=== PATIENT | female | born 1940 | race Caucasian/White ===

== ENCOUNTER 2024-04-23 07:22 | Day surgery (SDC) | payer OTHER, SELFPAY ==
[2024-04-23] VITALS (15 sets, daily range): BP systolic 85–174; BP diastolic 66–89; BMI 25.2
[2024-04-23] MEDS: LOW STRENGTH ASPIRIN 324 MG PO (08:13)
--- NOTE | 2024-04-23 09:38 | CONSULT.STRU ---
Consultation
-
Date/Time Consultation Requested: 04/23/2024
Date/Time Consultation Performed: 04/23/2024
Requesting Provider: Nahomy Cerda MD
Performing Provider: KHOI Barrios
Reason for Consultation: /TAVR
Patient History
Physicians
Family Physician: Mayte Rivas DO
Outpatient Travel Registered Nurse Icu: Hung Be MD
Primary Travel Registered Nurse Icu: Hung Be MD
History of Present Illness
Ms. Chen is a very pleasant 84 yof that presents with severe symptomatic aortic stenosis associated with several episodes of syncope and near syncope. She states she had the first episode of the summer while mowing her lawn, she could feel the
syncope coming on. She also relates this has happened several more times while mowing her lawn and raking leaves. Patient also states she has had increasing fatigue over the last several months. Her echocardiogram from 04/18/2024 is notable for EF
54.4%, aortic valve P/M 98/60, NIKKI 0.3, DI 0.14, pk giovana 4.94, trace to mild AI, moderate MR, MV MG 4.2. Discussed the pathophysiology and treatment options of including SAVR and TAVR. Explained the evaluation process comprising of CT scan, CT
surgical consult, dental clearance, and a heart team discussion. TAVR booklet, prescriptions, appointments, and contact information given to patient. Allowed for and answered questions at bedside.
Past Medical History
Past Medical History: HTN, Hypothyroidism, NIDDM, Valvular Disease (aortic stenosis) and Other (osteopenia, osteitis condensans, diverticulosis, cystocele, HLD, sciatica, internal hemorrhoid, bladder prolapse, macular degeneration)
Past Surgical History
cataract extraction, (R) inguinal hernia repair, (L) oopherectomy, bunionectomy, JEAN
Family History
Mother: N/A
Father: N/A
Social History
Alcohol: Occasional
Drug: None
Tobacco: Non-Smoker
Personal:
Living: With Spouse
Employment: Retired
Allergies
Allergy/AdvReac Type Severity Reaction Status Date / Time
erythromycin base Allergy Severe Rash Verified 04/23/24 07:43
adhesive tape Allergy Unknown Itching Verified 04/23/24 07:43
sulfamethoxazole Allergy Unknown Verified 04/23/24 07:43
trimethoprim Allergy Rash Verified 04/23/24 07:43
Home Medications
�Medication �Instructions �Recorded �Confirmed �Type
albuterol sulfate 90 mcg/actuation 2 puff inhalation 6XD PRN sob 04/23/24 04/23/24 History
aerosol inhaler
amlodipine 5 mg tablet 5 mg PO DAILY 04/23/24 04/23/24 History
atorvastatin 10 mg tablet 10 mg PO DAILY 04/23/24 04/23/24 History
coenzyme Q10 100 mg tablet 100 mg PO DAILY 04/23/24 04/23/24 History
enalapril maleate 20 mg tablet 20 mg PO BID 04/23/24 04/23/24 History
famotidine 20 mg tablet 20 mg PO DAILY 04/23/24 04/23/24 History
mv-mn-folic 200 mcg-vit K 15 1 cap PO BID 04/23/24 04/23/24 History
mcg-lutein 5 mg-zeaxanthin 1 mg
capsule (PreserVision AREDS 2 Plus
Multivit)
STS%
STS %: 4.04
Review of Systems
-
History Source: Patient
General: Reports Fatigue
HEENT: Reports No Symptoms
Respiratory: Reports No Symptoms
Cardiac: Reports No Symptoms
Abdomen/GI: Reports No Symptoms
: Reports No Symptoms
Skin: Reports No Symptoms
Neurological: Reports Syncope
Vascular: Reports No Symptoms
Physical Exam
Vital Signs
Temp 98.0 F 04/23/24 07:40
Temp route: Oral 04/23/24 07:40
Pulse 77 04/23/24 09:03
Resp Rate 18 04/23/24 09:03
Blood pressure 174/78 04/23/24 09:03
Blood pressure extremity used: Right upper arm 04/23/24 09:03
Position: Sitting 04/23/24 09:03
SaO2 98 04/23/24 09:03
Oxygen Mode of Delivery Room air 04/23/24 09:03
Can the patient verbally communicate their pain? Yes 04/23/24 09:18
Actual Weight 64.41 kg 04/23/24 07:56
Body Mass Index (BMI) 25.2 04/23/24 07:56
Labs
04/19/2024
HH: 13.7/43.2
Plt: 182K
BUN/Creatinine 16/0.88
GFR>60
Diagnostic Studies
Echocardiogram 04/18/2024:
EF: 54.4%
AV: pk giovana: 4.94, P/M 97.5/60.0, NIKKI 0.33, DI 0.14, trace to mild AI
MV: Mod MAC, mild-moderate MR, MG 4.2
TV: inadequate amount of tricuspid regurgitation to estimate the pulmonary systolic pressure
Exam
General: Well Developed, Well Nourished, No Apparent Distress and Comfortable
HEENT: Normocephalic and Atraumatic
Neck: Trachea Midline
Respiratory: Clear (anteriorly)
Cardiac: Regular Rhythm and Murmur (II/ LETITIA)
GI: Soft, Non Tender and Non Distended
Rectal: Deferred by Provider
Skin: Warm and Dry
Neuro: Awake, Alert, Oriented and AO x 3
Psych: Calm
Assessment / Plan
-
Severe
Continue with TAVR evaluation
Trend creatinine after contrast administration (Rx given)
TAVR CT scan (05/02)
CT surgical consult (TT 05/13)
Frailty testing and KCCQ12 at consult
Initiate aspirin
dental clearance
Heart team discussion
Data Reviewed
-
Code Enforcement Supervisor: Discussed with Physician
Echo: Report Reviewed by me and Discussed with Physician
Labs: Labs Reviewed by me
Old Records: Reviewed (Dr. Be's office note)
Total Time Spent with Patient (in minutes): 45
== END 2024-04-23 12:07 | disposition home or self-care (01) ==
LOC: CATH 07:22
PROVIDERS: ATTENDING PHYSICIAN Internal Medicine Interventional Cardiology; FAMILY PHYSICIAN Family Medicine
DX: I25.10 Atherosclerotic heart disease of native coronary artery without angina pectoris (principal); E11.9 Type 2 diabetes mellitus without complications; E03.9 Hypothyroidism, unspecified; I10 Essential (primary) hypertension; E78.5 Hyperlipidemia, unspecified; M85.80 Other specified disorders of bone density and structure, unspecified site; Z87.19 Personal history of other diseases of the digestive system; Z88.1 Allergy status to other antibiotic agents; Z88.2 Allergy status to sulfonamides; Z90.710 Acquired absence of both cervix and uterus; Z79.899 Other long term (current) drug therapy; M85.30 Osteitis condensans, unspecified site; K57.90 Diverticulosis of intestine, part unspecified, without perforation or abscess without bleeding; N81.10 Cystocele, unspecified; M54.30 Sciatica, unspecified side; H35.30 Unspecified macular degeneration
CPT/HCPCS: 93454; C1894; Q9967

== ENCOUNTER → 2024-05-01 08:47 | Outpatient (REF) | payer OTHER, SELFPAY ==
--- NOTE | 2024-04-23 13:45 | ITS.CL.CATH ---
Clipper Counters - Catheterization
Cardiac Catheterization
Procedure Report:
LEFT HEART CATHETERIZATION
Date of Procedure: April 23, 2024
Procedures performed:
1: Coronary angiography
Primary Care Physician: Dr. Samy No
Primary Compliance Engineer Products: Dr. El Be
INDICATION: The patient is an 84-year-old woman who is a new patient referral to Dr. El Be for symptoms over the summer of syncope and exertional lightheadedness. Echocardiography performed on April 18 showed preserved LV systolic
function with severe aortic valvular stenosis with a mean gradient of 60 mmHg and a valve area of 0.33 cm� and a dimensionless index of 0.14. She is referred for coronary angiography in preparation for aortic valve intervention.
ACCESS: The patient was prepped and draped in usual sterile fashion. A 5 Armenian sheath was placed in the right radial artery using the Seldinger over the wire technique.
HEMODYNAMIC FINDINGS (mmHg):
LV(s/d,EDP): Valve not crossed
Ao(s/d,m): 158/70, 103
ANGIOGRAPHIC FINDINGS:
Single-plane Left Ventriculography in LUND Projection: Valve not crossed
Coronary Angiography:
Dominance: Right
Left Main: Normal
Left Anterior Descending: The left anterior descending artery is a medium caliber vessel that has a two long smooth 50% stenoses in the midportion with normal distal flow. There are several small and 2 medium caliber diagonal branches which appear
widely patent.
Left Circumflex: The left circumflex is a medium caliber vessel that gives rise to 2 major obtuse marginal branches that are widely patent with normal flow.
Right Coronary: The right coronary artery is a relatively large caliber dominant vessel that has diffuse calcification throughout the AV groove but no evidence of focal obstructive disease with diffuse moderate luminal irregularities. The posterior
descending artery is a large-caliber vessel as is the posterior left ventricular branch. These vessels have normal flow.
Fluoroscopy Time (min): 2.8
Radiation Dose (mGy): 114
DAP (Gy.cm2): 8
Closure device: None. A TR band was applied for hemostasis at the right wrist.
Complications: None.
ASSESSMENT:
1: Moderate diffuse nonobstructive coronary artery disease with the most significant lesion being the borderline disease in the mid LAD.
2: Known severe aortic valvular stenosis.
CONCLUSIONS and RECOMMENDATIONS:
1: Proceed with TAVR evaluation.
Nahomy Cerda M.D.
Copy to: Dr. Samy No
== END ==
LOC: RAD 08:47
PROVIDERS: ATTENDING PHYSICIAN Nurse Practitioner Acute Care; FAMILY PHYSICIAN Family Medicine
DX: I35.0 Nonrheumatic aortic (valve) stenosis (principal)
CPT/HCPCS: 74174; 75572; Q9967

== ENCOUNTER 2024-05-08 17:27 | Inpatient (IN) | payer OTHER, SELFPAY ==
[2024-05-08] VITALS (10 sets, daily range): BP systolic 106–185; BP diastolic 59–173; BMI 28.0; BMI 25.3
--- NOTE | 2024-05-08 14:40 | EDRN ---
Florentin Elam PA in room w/pt at this time.
--- NOTE | 2024-05-08 14:49 | ED.GENMED ---
History of Present Illness
<Srinivas Elam PA-C - Last Filed: 05/08/24 15:31>
General
Chief Complaint: Chest Pain
Source: patient
Time Seen by Provider: 05/08/24 14:37
History of Present Illness
History of Present Illness:
84-year-old female with past medical history of hypertension, hyperlipidemia, newly diagnosed aortic stenosis scheduled to undergo aortic valve replacement surgery on May 15, scheduled to see the cardiothoracic surgeon, Dr. Maldonado, for the first
time this coming Sunday presenting to the emergency department with a relatively sudden onset of palpitations, chest discomfort and left shoulder pain occurring at noon and persisting prompting her to come to the ER for further evaluation. Patient
notes that her workup started few months ago when she had recurring syncope and when she had an echocardiogram and further evaluation was found to have the severe aortic stenosis. Patient is not on any anticoagulant medication. Denies any fevers
or infectious symptoms. No other concerns presently.
Past History
<Srinivas Elam PA-C - Last Filed: 05/08/24 15:31>
Past History
ED Past Medical History: Asthma, HTN, Hypercholesterolemia, NIDDM and Valvular disease
ED Past Surgical History: Gynecological and Other
Social History
Tobacco: Non-smoker
Alcohol: None
Drug: None
Personal:
Living: with family
Review of Systems
<Srinivas Elam PA-C - Last Filed: 05/08/24 15:31>
Review of Systems
All Other Systems: ROS reviewed and negative except as documented in HPI and ROS
Phy Exam
<Srinivas Elam PA-C - Last Filed: 05/08/24 15:31>
Physical Exam
Physical Exam:
GENERAL: Alert , in no apparent distress
HEAD: NCAT
EYE: clear conjunctiva
NECK: Supple
ENT: o/p clr, mmm.
CARDIAC: tachycardic rate between 148 and 153 bpm
LUNGS: Clear breath sounds bilaterally, no acute respiratory distress, no wheezes/rales/rhonchi
NEUROLOGICAL: Alert and oriented
SKIN: Warm and dry, skin intact.
MUSCULOSKELETAL: well perfused.
PSYCH: Normal and appropriate interaction.
Scores
<Srinivas Elam PA-C - Last Filed: 05/08/24 15:31>
Heart Failure Risk
Heart Failure Risk Score: Not Applicable
Heart Score for Chest Pain Patients
STEMI patient?: Not applicable
Withdrawal Assessment of Alcohol
Withdrawal Assessment Completed?: Not applicable
Course
<Srinivas Elam PA-C - Last Filed: 05/08/24 15:31>
Orders/Labs/Results
Orders:
Orders
05/08/24 14:12
EKG [Electrocardiogram (*1)] Urgent
Reason for Study: Chest Pain
EKG- Treatment ONCE
05/08/24 14:41
Cardiac Monitoring- Treatment ONCE
IV Insert/Care/Rem.- Treatment PRN
05/08/24 14:45
Adenosine [Adenocard] 18 mg .ROUTE .STK-MED ONE
05/08/24 14:47
Adenosine [Adenocard] 12 mg IV NOW STA
Adenosine [Adenocard] 6 mg IV NOW STA
05/08/24 15:00
Electrocardiogram (*1) Stat
Comment: ALREADY DONE
Diltiazem 125 mg/125 ml Nss [Cardizem] 125 mg in 125 ml IV PER PROTOCOL
Initial dose in mg/hr, then titrate:: 5
Titrate to keep:: Heart rate 80-100 bpm
Titrate by mg/hr:: 5 mg/hr
Frequency of titrations (minutes):: 15
Maximum dose in mg/hr:: 15
Diltiazem HCl [Cardizem] 10 mg IV NOW STA
05/08/24 15:01
Diltiazem 125 mg/125 ml Nss [Cardizem] 125 mg in 125 ml .ROUTE .STK-MED
Diltiazem HCl [Cardizem] 25 mg .ROUTE .STK-MED ONE
05/08/24 15:18
Complete Blood Count/With Diff Urgent
Comprehensive Metabolic Panel Urgent
PTT Urgent
Prothrombin Time Urgent
TSH Reflex To Free T4 Urgent
Abnormal Lab Results
05/08/24
15:18
WBC 17.1 H 10^3/uL
(4.8-10.8)
Hct 36.4 L %
(37.0-47.0)
MCH 26.8 L pg
(27.0-31.0)
RDW 15.5 H %
(11.5-14.5)
MPV 11.1 H fL
(7.4-10.4)
Abs Immat Gran (auto) 0.1 H 10^3/uL
(0-0.05)
Absolute Neuts (auto) 13.2 H 10^3/uL
(1.4-6.5)
Absolute Monos (auto) 0.8 H 10^3/uL
(0.1-0.6)
Neutrophils % 76.9 H %
(42.2-75.2)
Lymphocytes % 16.9 L %
(20.5-51.1)
05/08/24 15:18
Vital Signs
Initial and Last Documented VS:
Initial Vital Signs
Temp Pulse Resp BP Pulse Ox
98.3 F 150 16 159/97 98
05/08/24 14:25 05/08/24 14:25 05/08/24 14:25 05/08/24 14:25 05/08/24 14:25
Last Documented Vital Signs
Temp Pulse Resp BP Pulse Ox
98.3 F 120 15 135/75 96
05/08/24 14:25 05/08/24 15:15 05/08/24 15:15 05/08/24 15:07 05/08/24 15:15
<Marco Nowak MD - Last Filed: 05/08/24 15:04>
Orders/Labs/Results
Orders:
Orders
05/08/24 14:12
EKG [Electrocardiogram (*1)] Urgent
Reason for Study: Chest Pain
EKG- Treatment ONCE
05/08/24 14:41
Cardiac Monitoring- Treatment ONCE
IV Insert/Care/Rem.- Treatment PRN
05/08/24 14:45
Adenosine [Adenocard] 18 mg .ROUTE .STK-MED ONE
05/08/24 14:47
Adenosine [Adenocard] 12 mg IV NOW STA
Adenosine [Adenocard] 6 mg IV NOW STA
05/08/24 15:00
Electrocardiogram (*1) Stat
Comment: ALREADY DONE
Diltiazem 125 mg/125 ml Nss [Cardizem] 125 mg in 125 ml IV PER PROTOCOL
Initial dose in mg/hr, then titrate:: 5
Titrate to keep:: Heart rate 80-100 bpm
Titrate by mg/hr:: 5 mg/hr
Frequency of titrations (minutes):: 15
Maximum dose in mg/hr:: 15
Diltiazem HCl [Cardizem] 10 mg IV NOW STA
05/08/24 15:01
Diltiazem 125 mg/125 ml Nss [Cardizem] 125 mg in 125 ml .ROUTE .STK-MED
Diltiazem HCl [Cardizem] 25 mg .ROUTE .STK-MED ONE
05/08/24 15:18
Complete Blood Count/With Diff Urgent
Comprehensive Metabolic Panel Urgent
PTT Urgent
Prothrombin Time Urgent
TSH Reflex To Free T4 Urgent
Abnormal Lab Results
05/08/24
15:18
WBC 17.1 H 10^3/uL
(4.8-10.8)
Hct 36.4 L %
(37.0-47.0)
MCH 26.8 L pg
(27.0-31.0)
RDW 15.5 H %
(11.5-14.5)
MPV 11.1 H fL
(7.4-10.4)
Abs Immat Gran (auto) 0.1 H 10^3/uL
(0-0.05)
Absolute Neuts (auto) 13.2 H 10^3/uL
(1.4-6.5)
Absolute Monos (auto) 0.8 H 10^3/uL
(0.1-0.6)
Neutrophils % 76.9 H %
(42.2-75.2)
Lymphocytes % 16.9 L %
(20.5-51.1)
05/08/24 15:18
Vital Signs
Initial and Last Documented VS:
Initial Vital Signs
Temp Pulse Resp BP Pulse Ox
98.3 F 150 16 159/97 98
05/08/24 14:25 05/08/24 14:25 05/08/24 14:25 05/08/24 14:25 05/08/24 14:25
Last Documented Vital Signs
Temp Pulse Resp BP Pulse Ox
98.3 F 120 15 135/75 96
05/08/24 14:25 05/08/24 15:15 05/08/24 15:15 05/08/24 15:07 05/08/24 15:15
<Srinivas Elam PA-C - Last Filed: 05/08/24 15:31>
MDM/Problems Addressed
Differential Diagnosis Includes:
SVT, atrial fibrillation, atrial flutter, sick sinus syndrome, atypical ACS presentation, PE, worsening of valvular disease
MDM/Problems Addressed:
84-year-old female presenting the ER for relatively sudden onset of palpitations, shortness of breath and left-sided chest discomfort, found to be in a tachycardic rhythm, based off EKG possibility for SVT versus underlying a flutter. EKG appears
quite regular so decision was made to initially treat with a 6 mg dose of adenosine. Prior to the adenosine we did attempt vagal maneuvers however this was unsuccessful. After giving the adenosine there appeared to be an underlying atrial flutter
and patient went back to a heart rate around 150 bpm. Discussion with the patient about risk first benefit of cardioversion versus medication was had and ultimately given patient's history of significant valvular disease as well as the fact she is
not anticoagulated we ultimately decided to patient's best interest to treat rate control. Will treat with Cardizem bolus and infusion. Will notify hospitalist team for admission as well as notify cardiology and CT surgery
Chronic conditions affecting care: Other (Valvular disease)
Acute Exacerbation and/or Progression of Chronic Illness: Other (Valvular disease)
<Srinivas Elam PA-C - Last Filed: 05/08/24 15:31>
*Pulse Oximetry
Patient hypoxic: no
*EKG
Interpreted by ED Provider?: Yes
Heart Rate: 150
Rate: tachycardiac
Rhythm: SVT
[place]: normal axis
*Siderographist Interpretation
Rate: tachycardiac
Rhythm: SVT
*Critical Care Note
Total Time (30-74mins, 75-104mins- exclusive of procedures): 30
comment:
Critical care statement: A total of 30 minutes of critical care time was provided for this patient. This includes management of unstable vital signs, evaluation of the patient at bedside, reviewing the patient's pertinent medical records, discussion
with consultants, review of old EKGs and review of pertinent medical records. This time with separate from time utilized to perform the aforementioned documented procedures
<Srinivas Elam PA-C - Last Filed: 05/08/24 15:31>
Patient Management
Discussion with other providers: Hospitalist and Waxer
ED Attending Note
<Srinivas Elam PA-C - Last Filed: 05/08/24 15:31>
-
Portions of this chart may have been created with voice recognition software.� Occasional wrong word or��sound alike� substitutions may have occurred due to the inherent limitations of voice recognition software.
<Marco Nowak MD - Last Filed: 05/08/24 15:04>
ED Attending Note
Patient seen and examined by attending physician: Yes
ED Attending Note:
I have seen and evaluated the patient with a [id number] encounter. I have spoken to the advance practicer provider and involved in the medical history, the physical exam, medical decision making.
Evaluation and management service: agree unless noted differently below.
Results interpretation: agree unless noted differently below.
Focused HPI: 84-year-old female with past medical history of hypertension hyperlipidemia, aortic stenosis scheduled for TAVR next week with Dr. Maldonado presents to the ER for evaluation of chest pain, palpitations. Patient reports onset of symptoms
today they have been ongoing for the past few hours. She reports racing heart, palpitations, chest pain radiating to the jaw and shoulder. She reports significant shortness of breath. She denies having had similar symptoms in the past.
Physical exam: Awake alert anxious appearing. Hypertensive, heart rate 150. Tachycardic with ostensibly regular rhythm. Systolic murmur noted. Lungs clear to auscultation bilaterally. No edema in her legs.
Medical Decision Makin-year-old female presents with chest pain, palpitations, shortness of breath�found to have significant tachycardia on triage EKG. Initial read out as SVT but appears more consistent with atrial flutter. We did do a trial
of adenosine�on slowing of heart rate flutter waves noted; heart rate returned to 150 after adenosine. Will rate control with diltiazem. Admit for rate control, cardiology assessment. JOZEF discussed with cardiology team And cardiothoracic surgery
as patient has upcoming TAVR scheduled.
Discharge Plan
Departure
Patient Disposition: Admit
Date of Disposition: 05/08/24
Time of Disposition: 15:14
Presentation/result/management discussed w/ accepting MD/DO: Hospitalist
Discharge Problem:
Atrial flutter, Aortic stenosis
Prescriptions:
No Action
atorvastatin 10 mg Tablet
10 mg PO HS
enalapril maleate 20 mg Tablet
20 mg PO BID
amlodipine 5 mg Tablet
5 mg PO NOON
albuterol sulfate 90 mcg/actuation Hfa Aerosol Inhaler
2 puff INHALATION R [id number] PRN (Reason: sob)
coenzyme Q10 100 mg Tablet
100 mg PO NOON
PreserVision AREDS 2 Plus MV 200 mcg-15 mcg- 5 mg-1 mg Capsule
1 cap PO BID
budesonide 3 mg Capsule,Delayed,Extend.Release
3 mg PO TID
Patient Comments:
Taper
Referrals:
Amy Conklin MD [Family Provider] -
Interventions
Interventions:
*Risk Screen - Suicide Last Done: 05/08/24 14:25
*General Assessment Last Done: 05/08/24 15:10
*Neglect/Abuse Screening Last Done: 05/08/24 14:25
ED- Fall Risk Assessment Last Done: 05/08/24 15:10
*ED COVID-19 Vaccine History Last Done: 05/08/24 15:10
ED- Cardiac Assessment Last Done: 05/08/24 15:15
Discharge Date and Time
Print Language: SETSWANA
--- NOTE | 2024-05-08 14:49 | CON.CAR ---
Addendum entered and electronically signed by Beto Schreiber MD 05/08/24 16:02:
Regarding atrial fibrillation. Will try to control rate with IV Cardizem. If she remains in A-fib we will need to do cardioversion +/- with PINO
Addendum entered and electronically signed by Beto Schreiber MD 05/08/24 15:58:
I saw and examined the patient.
The DRAFT ROLLER PICKER or PA's note was reviewed and I agree with the note.
Comment: General: Well developed, well nourished in NAD.
Neck: Supple, no JVD, HJR, carotids +2 B/L, no bruits bilaterally.
Heart: Non displaced PMI, irregular tachycardic, 2/6 basal systolic murmur, No S3, S4, no rubs.
Lungs: Clear to auscultation bilaterally, no wheeze, rhonchi, rubs bilaterally,
normal expiratory phase.
Abdomen: Normal bowel sounds, soft, non-tender, non-distended.
Extremities: No clubbing, cyanosis or edema bilaterally.
Neuro: Grossly nonfocal, awake, alert and oriented x3.
Gila has a history of severe aortic stenosis with plan for TAVR are on 05/15/2024, hypertension, anemia, hypothyroidism, multiple syncopal episodes resulting in the finding of severe aortic stenosis. She presents with complaints of chest pain.
Chest pain is worse with taking a deep breath. A week ago she had episode of chest discomfort short of breath which was relieved with burping. In the ER she is noted to be tachycardic with heart rates in the 150s. She was given adenosine and felt
to be in atrial flutter. Appears to be in atrial fibrillation at present. Her chest discomfort has improved some but is persistent. It worsens with taking a deep breath.
Will continue to follow troponins. Will give morphine for chest discomfort. No chest significant dye allergy at the time of a CAT scan and concern regarding another catheterization. Of note catheterization April 2025 did not reveal significant
disease. However if she rules and may need to consider repeat catheterization. Discussed with patient and daughter at bedside.
Original Note:
Consultation
Consultation Request
Date/Time Consultation Performed: 05/08/24
Requesting Provider: Srinivas Elam PA-C
Performing Provider: Evelyn Slater PA-C for Dr. Schreiber
Reason for Consultation: CP/SOB
Medical History
-
Chief Complaint: CP/SOB
History of Present Illness:
Patient is an 84-year-old female with past medical history of hypertension, hyperlipidemia, hypothyroidism, with history of syncopal episodes resulting in finding of severe . She has undergone TAVR evaluation and is planned for TAVR procedure
05/15/2024. She was planned for echo and PAT's 05/09/2024. She reports approximately 1 week ago she had a brief episode of chest discomfort and shortness of breath which was relieved with burping. She reports then overnight last night she was short
of breath which continued today in addition to feeling shoulder discomfort, back discomfort and chest discomfort. She reports this is worse with taking a deep breath in. She also reports tingling in her bilateral fingers. Denies fevers or chills,
lower extremity edema or weight gain. She reports she had her dental x-rays this morning. She had cardiac catheterization as part of TAVR workup 04/23/2025 with two areas of 50% stenosis of LAD, and otherwise mod diffuse nonobstructive CAD with
plan for medical management. On arrival to ER was noted to be tachycardic with heart rates in the 150s. She was given 6 mg of adenosine and was felt to be in atrial flutter. Presently appears to be in atrial fibrillation with heart rates in the
100s after receiving IV Cardizem 10 mg push followed by initiation of Cardizem drip at 5. She remains with ongoing pain at present.
PMH:
Severe , planned for TAVR 05/15/24
History of syncope
HTN
HLD
Hypothyroidism
History of JEAN/oophorectomy
Past Medical History
Past Medical History: Other (in HPI)
Social History
Tobacco: Non-Smoker
Personal:
Living: With Family
Employment: Retired
Allergies / Home Medications
Allergy/AdvReac Type Severity Reaction Status Date / Time
erythromycin base Allergy Severe Sneezing Verified 05/08/24 14:27
adhesive tape Allergy Unknown Itching Verified 05/08/24 14:27
sulfamethoxazole Allergy Rash Verified 05/08/24 14:27
trimethoprim Allergy Rash Verified 05/08/24 14:27
IV Contrast Allergy Torso Rash Uncoded 05/08/24 14:27
�Medication �Instructions �Recorded �Confirmed �Type
albuterol sulfate 90 mcg/actuation 2 puff inhalation PRN PRN sob 04/23/24 05/06/24 History
aerosol inhaler
amlodipine 5 mg tablet 5 mg PO NOON 04/23/24 05/06/24 History
atorvastatin 10 mg tablet 10 mg PO HS 04/23/24 05/06/24 History
coenzyme Q10 100 mg tablet 100 mg PO NOON 04/23/24 05/06/24 History
enalapril maleate 20 mg tablet 20 mg PO BID 04/23/24 05/06/24 History
mv-mn-folic 200 mcg-vit K 15 1 cap PO BID 04/23/24 05/06/24 History
mcg-lutein 5 mg-zeaxanthin 1 mg
capsule (PreserVision AREDS 2 Plus
Multivit)
budesonide 3 mg 3 mg PO DIRECTED 05/06/24 05/06/24 History
capsule,delayed,extended release
methylprednisolone 4 mg tablets in 4 mg PO PER PKG DIR 05/06/24 05/06/24 History
a dose pack
Review of Systems
-
History Source: Patient and Family
All other systems: Negative unless noted
Physical Exam
Vital Signs
Temp Pulse Resp BP Pulse Ox
98.3 F 152 24 148/100 98
05/08/24 14:25 05/08/24 14:35 05/08/24 14:35 05/08/24 14:35 05/08/24 14:35
Lab Results
Troponin I Cancelled 05/08/24 14:41
Physical Exam
General: Other (appears uncomfortable)
HEENT: Normocephalic, Anicteric and Moist Mucous Membranes
Respiratory: Clear and Non Labored Respirations
Cardiac: S1/S2, Irregular Rhythm and Murmur
GI: Soft, Non Tender and Normal Bowel Sounds
Musculoskeletal: No Clubbing, No Cyanosis and No Edema
Skin: Warm and Dry
Neuro: AO x 3
Impression / Plan
-
Primary Director Of Partnerships: Dr. Be of [facility]
Assessment:
Presentation with CP, SOB
Suspected atrial flutter with RVR however appears more like afib on tele in ER at present
Leukocytosis
Severe , planned for TAVR 05/15/24
History of syncope
HTN
HLD
Hypothyroidism
History of JEAN/oophorectomy
IV contrast allergy
ECHO 04/18/24 at [facility]: EF 54%, severe with peak/mean gradients 98/60 mmHg, NIKKI 0.33 cm�, trace to mild AI, moderate MAC, mild to moderate MR
Plan:
-Patient presents with chest pain and shortness of breath
-Initial concern for aflutter with rapid ventricular response after receiving adenosine, however currently appears to be more consistent with atrial fibrillation on telemetry in the ER.
-Continue IV Cardizem
-labs pending
-Remains with chest/back discomfort which appears more pleuritic in etiology. Reviewed cardiac catheterization 04/23/2024 with diffuse moderate CAD, medically managed and TAVR CT from 05/01/24. Trend troponins. ordered IV Morphine dose now
-Would attempt to avoid sublingual nitro/hypotension in the setting of known severe
-Check echo, last from 04/18/24 at [facility] as above
-IV heparin
-Currently scheduled for TAVR 05/15/2024
-CT surgery aware of patient
-Discussed with ER nursing and PA. Discussed with TAVR coordinator. Discussed with patient's daughter at bedside
Data Reviewed
-
EKG: Tracing Personally Visualized and interpreted
CT Scan: Report Reviewed by me
Medical Tests (Nuc Med, Echo etc): Report Reviewed by me
Labs: Labs Reviewed by me
Old Records: Reviewed
[2024-05-08] MEDS: ADENOCARD 6 MG IV (14:56)
[2024-05-08] MEDS: CARDIZEM 10 MG IV (15:07)
[2024-05-08] MEDS: CARDIZEM 125 IV ×2 (15:08→23:48)
--- NOTE | 2024-05-08 15:12 | EDRN ---
Evelyn HASKINS w/ cardiology in room w/pt.
[2024-05-08 15:25] LABS: % Basophils 0.5 % (0-2); % Eosinophils 0.6 % (0-6); % Immature Granulocytes 0.5 % (0-0.5); % Lymphocytes 16.9 % (20.5-51.1); % Monocytes 4.6 % (1.7-9.3); % Neutrophils 76.9 % (42.2-75.2); Absolute Basophils 0.1 10^3/uL (0-0.2); Absolute Eosinophils 0.1 10^3/uL (0-0.7); Absolute Immature Granulocytes 0.1 10^3/uL (0-0.05); Absolute Lymphocytes 2.9 10^3/uL (1.2-3.4); Absolute Monocytes 0.8 10^3/uL (0.1-0.6); Absolute Neutrophils 13.2 10^3/uL (1.4-6.5); Hematocrit 36.4 % (37.0-47.0); Mean Corpuscular Hgb 26.8 pg (27.0-31.0); Mean Corpuscular Volume 81.4 fL (81.0-99.0); Mean Platelet Volume 11.1 fL (7.4-10.4); Nucleated Red Blood Cells % 0 %; Platelet Count 386 10^3/uL (130-400); Red Blood Cell Count 4.47 10^6/uL (4.20-5.40); Red Cell Dist. Width 15.5 % (11.5-14.5); White Blood Cell Count 17.1 10^3/uL (4.8-10.8)
--- NOTE | 2024-05-08 15:35 | EDRN ---
Dr. Schreiber in room w/ pt at this time.
[2024-05-08 15:37] LABS: APTT 25.4 Sec (23.4-35.0); INR 0.92; PT 12.9 Sec (11.4-14.6)
[2024-05-08 15:41] LABS: ALT (SGPT) 126 U/L (0-35); AST (SGOT) 75 U/L (14-36); Alkaline Phosphatase 95 U/L (38-126); Blood Urea Nitrogen 22 mg/dl (7-17); Calcium 9.5 mg/dl (8.4-10.2); Carbon Dioxide 25 mmol/L (22-30); Chloride 102 mmol/L (98-107); Estimated Creatinine Clearance 46 ml/min; Glucose 193 mg/dl (70-99); Potassium 3.7 mmol/L (3.5-5.1); Sodium 136 mmol/L (135-145); Total Bilirubin 1.1 mg/dl (0.2-1.3); Total Protein 6.4 g/dl (6.3-8.2); eGFR > 60.00
--- NOTE | 2024-05-08 15:55 | EDRN ---
Pt OOB to commode and HR increased up to 151 again.
[2024-05-08] MEDS: MORPHINE SULFATE 1 MG IV (15:56)
--- NOTE | 2024-05-08 16:00 | EDRN ---
Speech Therapist is in w/ pt at this time. Pt remains coughing up copious secretions and sounds gurgly.
[2024-05-08 16:10] LABS: TSH Reflex To Free T4 1.69 uIU/ml (0.47-4.68)
--- NOTE | 2024-05-08 16:18 | EDRN ---
Speech therapist, Chio, said okay for pt to have a regular diet. She said she will notify Dr. Maloney of her results.
[2024-05-08 16:35] LABS: Troponin I 0.253 ng/ml
--- NOTE | 2024-05-08 16:40 | EDRN ---
TT sent to Florentin HASKINS about troponin result.
--- NOTE | 2024-05-08 16:40 | EDRN ---
Florentin HASKINS responded that she saw level.
--- NOTE | 2024-05-08 17:10 | HPS.HSE ---
Family Physician
-
Family Physician: Amy Conklin
Chief Complaint
-
sudden onset of palpitations, chest discomfort
History of Present Illness
84F HX hypertension, hyperlipidemia, hypothyroidism, with HX syncopal episodes due to symptomatic severe then undergone TAVR evaluation and is planned for TAVR procedure 05/15/2024.
She was planned for echo and PAT's 05/09/2024.Plan to see with CTS Dr. Maldonado, for the first time this coming Sunday presenting to the emergency department
- relatively sudden onset of palpitations, chest discomfort and left shoulder pain occurring at noon and persisting
Medical History
Past Medical History
Past Medical History: Reports Asthma, HTN, Hypercholesterolemia, NIDDM and Valvular Disease (critical )
Past Surgical History: Reports Gynocological
Social History
Tobacco: Non-smoker
Alcohol: None
Drug: None
Personal:
Living: With Family
Family History
Family History: Not pertinent
Allergies / Home Medications
Allergies reflects when Allergies were last updated in [employer].
Home Medications with original date entered in [employer]
Allergy/Medication List:
Allergies
Allergy/AdvReac Type Severity Reaction Status Date / Time
erythromycin base Allergy Severe Sneezing Verified 05/08/24 14:27
adhesive tape Allergy Unknown Itching Verified 05/08/24 14:27
sulfamethoxazole Allergy Rash Verified 05/08/24 14:27
trimethoprim Allergy Rash Verified 05/08/24 14:27
IV Contrast Allergy Torso Rash Uncoded 05/08/24 14:27
Home Medications
albuterol sulfate 90 mcg/actuation aerosol inhaler 2 puff inhalation R Q6HPRN PRN sob 04/23/24
amlodipine 5 mg tablet 5 mg PO NOON 04/23/24
atorvastatin 10 mg tablet 10 mg PO HS 04/23/24
coenzyme Q10 100 mg tablet 100 mg PO NOON 04/23/24
enalapril maleate 20 mg tablet 20 mg PO BID 04/23/24
mv-mn-folic 200 mcg-vit K 15 mcg-lutein 5 mg-zeaxanthin 1 mg capsule (PreserVision AREDS 2 Plus Multivit) 1 cap PO BID 04/23/24
budesonide 3 mg capsule,delayed,extended release 3 mg PO UD 05/06/24
Review of Systems
-
Constitutional: Reports No Symptoms
EENT: Reports No Symptoms
Respiratory: Reports No Symptoms
Cardiac: Reports Chest Pain and Palpitations
Abdomen/GI: Reports No Symptoms
: Reports No Symptoms
Musculoskeletal: Reports No Symptoms
Skin: Reports No Symptoms
Neurological: Reports No Symptoms
Endocrine: Reports No Symptoms
Hematologic/Lymphatic: Reports No Symptoms
Psych: Reports No Symptoms
Physical Exam
Vital Signs
Vital Signs
Temp Pulse Resp BP Pulse Ox
98.3 F 126 24 139/89 95
05/08/24 14:25 05/08/24 16:36 05/08/24 16:36 05/08/24 16:36 05/08/24 16:36
Physical Exam
General: Well Developed, Well Nourished, No Apparent Distress and Conversant
HEENT: NormoCephalic, Moist mucous membranes and Atraumatic
Respiratory: Clear
Cardiac: S1/S2, Tachycardia and Murmur (loud ejection SM at LUSB ); No Rub
GI: Soft, Non Tender, Non Distended and Normal Bowel Sounds; No Organomegaly
Rectal: Deferred by Provider
Musculoskeletal: No Clubbing, No Cyanosis and No Edema
Skin: No Rash
Neuro: Nonfocal/grossly intact
Psych: Calm
Laboratory Results
-
05/08/24 15:18
05/08/24 15:18
Laboratory Results
PT 12.9 Sec (11.4-14.6) 05/08/24 15:18
INR 0.92 05/08/24 15:18
APTT 25.4 Sec (23.4-35.0) 05/08/24 15:18
Total Bilirubin 1.1 mg/dl (0.2-1.3) 05/08/24 15:18
AST 75 U/L (14-36) H 05/08/24 15:18
ALT 126 U/L (0-35) H 05/08/24 15:18
Alkaline Phosphatase 95 U/L (38-126) 05/08/24 15:18
Troponin I 0.253 ng/ml H* 05/08/24 14:45
Data Reviewed
-
Diagnostic Radiology: Report Reviewed by me
Medical Tests (Nuc Med, Echo, EKG etc): Report Reviewed by me and Discussed with Physician (art coordinator )
Lab Data: Labs Reviewed by me
Old Records: Reviewed
Impression/Plan
-
Reviewed VS:
Vital Signs
Temp Pulse Resp BP Pulse Ox
98.3 F 126 26 113/87 95
05/08/24 14:25 05/08/24 17:15 05/08/24 17:15 05/08/24 17:00 05/08/24 17:15
Data
Abnormal Lab Results
05/08/24 05/08/24
14:45 15:18
WBC 17.1 H
Hct 36.4 L
MCH 26.8 L
RDW 15.5 H
MPV 11.1 H
Abs Immat Gran (auto) 0.1 H
Absolute Neuts (auto) 13.2 H
Absolute Monos (auto) 0.8 H
Neutrophils % 76.9 H
Lymphocytes % 16.9 L
BUN 22 H
Glucose 193 H
AST 75 H
ALT 126 H
Troponin I 0.253 H*
ASSESSMENT & PLAN
CP worse with deep breathing
Episode of CP a week ago relieved by burping
Palpitation
Of note: significant dye allergy at the time of a CAT scan and concern regarding another catheterization.
- Card catheterization in April 2025 did not reveal significant disease.
- f/u TPNI - if she rules in, may need to consider repeat catheterization.
- morphine for chest discomfort per Card
- [facility] card consulted
Significant tachycardia on triage EKG.
Initial read out as SVT but appears more consistent with atrial flutter.
- s/p failed attempted trial of adenosine�on slowing of heart rate flutter waves noted
- Cardizem gtt to controll suspected A treail flutter
- [facility] card consulted
Elevated first TPNI
- trend TPNI
- NPO after MN - may need to consider repeat catheterization per [facility] card
Benign hypertension
-c/w CALCULATION REVIEWER Amlodipine
HLD
- c/w CALCULATION REVIEWER
Hypothyroidism
- check TSH
DVT Px: LMWH
Code: full code
IVU
--- NOTE | 2024-05-08 17:23 | EDRN ---
Dr. Bryant in room w/ pt.
[2024-05-08] MEDS: MORPHINE SULFATE 1.5 MG IV ×2 (17:38→22:37)
--- NOTE | 2024-05-08 18:12 | EDRN ---
Pt states she is feeling better w/ pain across upper back and in L chest only w/ breathing in and is now 6-7/10 in both areas.
--- NOTE | 2024-05-08 18:16 | EDRN ---
HR at this time irregular A flutter and 100-<120 at this time.
--- NOTE | 2024-05-08 19:09 | EDRN ---
Verbal report given to RN in IVU who will care for pt.
[2024-05-08 20:21] LABS: Troponin I 0.434 ng/ml
[2024-05-08] MEDS: LOVENOX 40 MG SC (20:59)
[2024-05-08] MEDS: LIPITOR 10 MG PO (21:00)
[2024-05-08 23:42] LABS: Troponin I 0.548 ng/ml
[2024-05-09] VITALS (7 sets, daily range): BP systolic 123–148; BP diastolic 53–94; BMI 25.2
[2024-05-09 02:24] LABS: Hematocrit 32.8 % (37.0-47.0); Hemoglobin 10.7 g/dL (12.0-16.0); Mean Corp Hgb Conc. 32.6 g/dL (33.0-37.0); Mean Corpuscular Volume 82.6 fL (81.0-99.0); Mean Platelet Volume 10.4 fL (7.4-10.4); Platelet Count 326 10^3/uL (130-400); Red Blood Cell Count 3.97 10^6/uL (4.20-5.40); Red Cell Dist. Width 15.4 % (11.5-14.5); White Blood Cell Count 18.9 10^3/uL (4.8-10.8)
--- NOTE | 2024-05-09 02:39 | PTCARENOTE ---
Addendum entered by Mary Kate Ralph RN 05/09/24 02:42:
Pt c/o Chest pain 6/10 and difficulty breathing. Morphine PRN given and applied 2L O2(order obtained) 97%. Pain improved to 0/10
Original Note:
Pt admitted to rm 2241. AFib on monitor, c/o chest and back pain 3/10. Pt ambulates in the room with help. Pt oriented to the room, call mauro in reach.
[2024-05-09 02:42] LABS: ALT (SGPT) 106 U/L (0-35); AST (SGOT) 49 U/L (14-36); Albumin 3.7 g/dl (3.5-5.0); Alkaline Phosphatase 76 U/L (38-126); Blood Urea Nitrogen 19 mg/dl (7-17); Calcium 8.9 mg/dl (8.4-10.2); Carbon Dioxide 26 mmol/L (22-30); Chloride 102 mmol/L (98-107); Estimated Creatinine Clearance 51 ml/min; Glucose 218 mg/dl (70-99); HDL Cholesterol 88 mg/dl; LDL Cholesterol, Calculated 59 mg/dl; Sodium 135 mmol/L (135-145); Total Bilirubin 1.1 mg/dl (0.2-1.3); Total Cholesterol 167 mg/dl (50-199); Triglyceride 101 mg/dl (10-149); Very Low Density Lipoprotein 20 mg/dl (0-30); eGFR > 60.00
[2024-05-09 02:50] LABS: Troponin I 0.732 ng/ml
--- NOTE | 2024-05-09 08:00 | PTCARENOTE ---
Assumed care of pt from prev nsg shift; Pt AAOX3 w/no c/o CP or SOB. Pt w/VS stable w/HR now in the 70's & BP 126/68 this AM. Pt w/Cardizem drip infusing as ordered through patent IV line. Pt NPO for poss cardiac cath this AM. Pt w/call mauro within
reach & plan of care ongoing.
[2024-05-09] MEDS: CARDIZEM 125 IV ×2 (08:26→21:01)
[2024-05-09 09:08] LABS: Urine Albumin 1+ (Neg - Trace); Urine Bilirubin Negative (Negative); Urine Character Clear (Clear); Urine Color Yellow; Urine Glucose Negative (Negative); Urine Ketone Negative (Negative); Urine Leukocyte Trace (Negative); Urine Nitrite Negative (Negative); Urine Occult Blood Negative (Negative); Urine Specific Gravity 1.025 (<1.030); Urine Urobilinogen Negative (Neg - 1+)
[2024-05-09 09:25] LABS: Troponin I 0.716 ng/ml
[2024-05-09 10:52] LABS: Urine Mucus Many
[2024-05-09 10:53] LABS: Urine Squamous Cell >30 /LPF (Few)
[2024-05-09 10:55] LABS: Urine Bacteria Moderate (Negative); Urine Red Blood Cell None Seen /HPF (0-2)
[2024-05-09 11:32] LABS: Glycohemoglobin (HgbA1c) 7.1 % (4.0-5.6)
--- NOTE | 2024-05-09 11:49 | CONSULT.CT ---
Patient History
Allergies
Allergy/AdvReac Type Severity Reaction Status Date / Time
adhesive tape Allergy Itching Verified 05/08/24 17:30
erythromycin base Allergy Sneezing Verified 05/08/24 17:30
Iodinated Contrast Media Allergy IV Verified 05/08/24 17:30
CONTRAST-TORSO
RASH WITH
CATH
sulfamethoxazole Allergy Rash Verified 05/08/24 14:27
trimethoprim Allergy Rash Verified 05/08/24 14:27
Home Medications
�Medication �Instructions �Recorded �Confirmed �Type
albuterol sulfate 90 mcg/actuation 2 puff inhalation R Q6HPRN PRN sob 04/23/24 05/08/24 History
aerosol inhaler
amlodipine 5 mg tablet 5 mg PO NOON 04/23/24 05/08/24 History
atorvastatin 10 mg tablet 10 mg PO HS 04/23/24 05/08/24 History
coenzyme Q10 100 mg tablet 100 mg PO NOON 04/23/24 05/08/24 History
enalapril maleate 20 mg tablet 20 mg PO BID 04/23/24 05/08/24 History
mv-mn-folic 200 mcg-vit K 15 1 cap PO BID 04/23/24 05/08/24 History
mcg-lutein 5 mg-zeaxanthin 1 mg
capsule (PreserVision AREDS 2 Plus
Multivit)
budesonide 3 mg 3 mg PO UD 05/06/24 05/08/24 History
capsule,delayed,extended release
Physical Exam
Vital Signs
Temp 98.4 F 05/09/24 10:55
Temp route: Oral 05/09/24 10:55
Pulse 76 05/09/24 11:00
Rhythm: Atrial fibrillation 05/09/24 08:27
Resp Rate 20 05/09/24 10:55
Blood pressure 139/56 05/09/24 10:57
Blood pressure extremity used: Right upper arm 05/09/24 10:55
Position: Lying 05/09/24 10:55
MAP (cuff-Fatoumata Monitor) 76 05/09/24 10:57
SaO2 97 05/09/24 10:57
Nasal Cannula flow liters per minute 2 05/09/24 10:55
Oxygen Mode of Delivery Room air 05/08/24 19:30
Can the patient verbally communicate their pain? Yes 05/08/24 23:37
Pain scale ratin 05/08/24 23:37
Actual Weight 64.5 kg 05/09/24 05:34
Body Mass Index (BMI) 25.2 05/09/24 05:34
Labs
05/09/24 02:14
05/09/24 02:14
PT 12.9 Sec (11.4-14.6) 05/08/24 15:18
APTT 25.4 Sec (23.4-35.0) 05/08/24 15:18
Hemoglobin A1c 7.1 % (4.0-5.6) H 05/08/24 19:43
Troponin I 0.716 ng/ml H* 05/09/24 08:41
Urinalysis
Urine Color Yellow 05/09/24 08:49
Urine Clarity Clear (Clear) 05/09/24 08:49
Urine pH 5.0 (5.0-9.0) 05/09/24 08:49
Ur Specific Thompson 1.025 (<1.030) 05/09/24 08:49
Urine Ketones Negative (Negative) 05/09/24 08:49
Ur Occult Blood Reflex Negative (Negative) 05/09/24 08:49
Urine Bilirubin Negative (Negative) 05/09/24 08:49
Leukocyte Esterase Rfl Trace (Negative) A 05/09/24 08:49
Urine RBC None seen /HPF (0-2) 05/09/24 08:49
Urine WBC (Reflex) 6-10 /HPF (0-5) 05/09/24 08:49
Ur Squamous Epith Cells >30 /LPF (Few) 05/09/24 08:49
Urine Bacteria (Reflex) Moderate (Negative) A 05/09/24 08:49
Urine Mucus Many 05/09/24 08:49
Urine Glucose Negative (Negative) 05/09/24 08:49
Urine Albumin (Reflex) 1+ (Neg - Trace) A 05/09/24 08:49
Assessment / Plan
-
Vitals:
Pain,palpitations,+dizziness/lightheadedness and syncopal episodes,weakness,+fatigue,+decrease in activity tolerance, edema, weight has ,SOB, SOARES, cough/wheeze/sputum, orthopnea, PND,MEET/CPAP. 5meter gait= seconds�.
Physical Examination:
Chest clear
Systolic ejection murmur
In afib
���� Cath PCI
Cath PCI�LEFT HEART CATHETERIZATION
Date of Procedure: April 23, 2024
HEMODYNAMIC FINDINGS (mmHg):LV(s/d,EDP): Valve not crossedAo(s/d,m): 158/70, 103
ANGIOGRAPHIC FINDINGS:Single-plane Left Ventriculography in LUND Projection: Valve not crossed
Coronary Angiography:Dominance: RightLeft Main: NormalLeft Anterior Descending: The left anterior descending artery is a medium caliber vessel that has a two long smooth 50% stenoses in the midportion with normal distal flow.� There are several
small and 2 medium caliber diagonal branches which appear widely patent.Left Circumflex: The left circumflex is a medium caliber vessel that gives rise to 2 major obtuse marginal branches that are widely patent with normal flow.Right Coronary: The
right coronary artery is a relatively large caliber dominant vessel that has diffuse calcification throughout the AV groove but no evidence of focal obstructive disease with diffuse moderate luminal irregularities.� The posterior descending artery
is a large-caliber vessel as is the posterior left ventricular branch.� These vessels have normal flow.
Fluoroscopy Time (min): 2.8Radiation Dose (mGy): 114DAP (Gy.cm2): 8
Closure device: None.� A TR band was applied for hemostasis at the right wrist.�
Complications: None.
ASSESSMENT:1: Moderate diffuse nonobstructive coronary artery disease with the most significant lesion being the borderline disease in the mid LAD.2: Known severe aortic valvular stenosis.
CONCLUSIONS and RECOMMENDATIONS:�1: Proceed with TAVR evaluation..�
���� Echo
Echo�Echocardiogram (GV) 04/18/2024:�
1. LVEF=54.4%
2. Normal LV systolic function without distinct regional wall motion abnormalities
3. Mild eccentric LVH.
4. Indeterminate LV diastolic function
5. Normal RV size and systolic function.
6. Moderately dilated LA by volume index 45.6ml/m2.
7. Normal RA by area 13.5cm2.
8. Severe , trace to mild AI
9. AoV velocity =4.94m/s;PG=97.5mmHg;MG=60.0mmHg; NIKKI=0.33cm2; AoV dimensionless index=0.14.
10. Moderate MAC
11. Mild to moderate MR
12. Mild MV inflow restriction with MG=4.2mmHg
Assessment:
Nonrheumatic aortic valve stenosis - I35.0 (Primary)
Gila Chen is an 84-year-old female with known progressive aortic valve stenosis. Their most recent echocardiogram demonstrated a peak/mean gradient of 97/60 mmHg, respectively. NIKKI was calculated to be 0.3 and peak velocity was nearly 5 m/s. Their
left heart catheterization revealed moderate diffuse nonobstructive coronary disease. An invasive mean gradient was not performed. From a symptomatology standpoint, they describe chest pain that radiated from her back up her left neck and arm. Was
recently admitted to our hospital and found to be in afib and heart failure which is new. In comparison to 1 year ago, they feel worse. Functionally, they are excellent and independent. Last summer she was able to mow her lawn. I believe they meet
criteria for severe aortic valve stenosis and satisfy stage D symptomatology and therefore I consider them a class 1 indication for intervention. Given their age and risk factors, I would recommend a transcatheter approach provided their imaging
studies reveal safe and amenable anatomy. We reviewed her case at our MDT meeting, and all parties feel she is best served with transcatheter intervention. Although her trops are elevated, she really has only mild CAD, and we wonder if her trop
elevation is secondary to afib and HF. We will repeat her ECHO while inpt, medically optimize her, start hep gtt given her ongoing afib, and plan for TAVR while in patient on her scheduled date.
RESCUE STATUS: Full
Plan:
1. I believe this patient would benefit from a TAVR procedure given their current findings and symptoms.
2. We will need to complete their work up including TAVR imaging and measurements.
3. The procedure, risks, and the benefits were explained in detail. this included but was not limited to: need for emergent PCI due to coronary obstruction, emergent operative intervention for hemorrhage, placement of a PPM, need for transfusion,
stroke, etc. Consent was obtained for the procedure and scanned into the chart. A total of 60mins was spent reviewing the patients chart and in consultation. They are aware that any procedure is pending our investive findings and multidisciplinary
structural heart team meeting.
4. The patient and family are aware that both I and my colleague, Dr. Cunningham, perform this procedure and that one of us will be present as the cardiac surgeon on the day of their TAVR.
5. They were updated on any incidental findings on their CT scans and recommend follow up with their primary care provider.
Thank you for involving me in the care of this patient. Please feel free to contact me with any questions or concerns.
Moise Maldonado MD, MS
Cardiothoracic Surgeon
[facility]
This operative dictation was created using the markedup dictation system. Please excuse any grammatical, typographical, or 'sound alike' errors.
--- NOTE | 2024-05-09 12:18 | W.PN.CARDCBS ---
Addendum entered and electronically signed by eBto Schreiber MD 05/09/24 12:29:
I saw and examined the patient.
The BASKET PERSON or PA's note was reviewed and I agree with the note.
Comment: General: Well developed, well nourished in NAD.
Neck: Supple, no JVD, HJR, carotids +2 B/L, no bruits bilaterally.
Heart: Non displaced PMI, irregular, 2/6 basal systolic murmur, No S3, S4, no rubs.
Lungs: Clear to auscultation bilaterally, no wheeze, rhonchi, rubs bilaterally,
normal expiratory phase.
Extremities: No clubbing, cyanosis or edema bilaterally.
Neuro: Grossly nonfocal, awake, alert and oriented x3.
Remains in rate controlled atrial fibrillation. Will try to wean Cardizem to p.o. Continue IV heparin for now. Likely related patient for TAVR are 05/15/2024. Check echo. Discussed with CT surgery
Original Note:
Today's Communication / Plan
-
continue IV cardizem
IV heparin
likely staying for TAVR 05/15
echo pending
Impression / Plan
-
Primary Glass Technician/Installer: Dr. Be of [facility]
Assessment:
Presentation with CP, SOB
Suspected atrial flutter with RVR however appears more like afib on tele in ER at present
Leukocytosis
Elevated troponin, suspected nonischemic myocardial injury in setting of rapid AF and severe
Severe , planned for TAVR 05/15/24
History of syncope
HTN
HLD
Hypothyroidism
History of JEAN/oophorectomy
IV contrast allergy
ECHO 04/18/24 at [facility]: EF 54%, severe with peak/mean gradients 98/60 mmHg, NIKKI 0.33 cm�, trace to mild AI, moderate MAC, mild to moderate MR
Plan:
-Patient feeling much better today. With minimal to no chest discomfort
-Currently in A-fib with controlled heart rates on IV Cardizem at 10, continue
-Troponin peaked at 0.7 and is trending down. She had recent cath 04/23/2024 with nonobstructive CAD with plan for medical management. After discussion with interventional cardiology and CT surgical teams, no plans for repeating cath at this time
as suspected nonischemic myocardial injury in setting of rapid AF and severe
-Echo 05/08/2024 pending
-IV heparin does not appear to have been ordered on admission, will order. eventual OAC post procedure
-Currently scheduled for TAVR 05/15/2024, likely will keep as inpatient until then
-Discussed with nursing. Discussed with TAVR coordinator. Discussed with CT surgical BASKET PERSON/PA
Progress Note - Glass Technician/Installer
Subjective
Date of Service: May 09, 2024
feeling much improved today
Objective
Labs:
05/09/24 02:14
05/09/24 02:14
Labs
Hgb 10.7 g/dL (12.0-16.0) L 05/09/24 02:14
Hct 32.8 % (37.0-47.0) L 05/09/24 02:14
Plt Count 326 10^3/uL (130-400) 05/09/24 02:14
PT 12.9 Sec (11.4-14.6) 05/08/24 15:18
INR 0.92 05/08/24 15:18
APTT 25.4 Sec (23.4-35.0) 05/08/24 15:18
Sodium 135 mmol/L (135-145) 05/09/24 02:14
Potassium 4.0 mmol/L (3.5-5.1) 05/09/24 02:14
BUN 19 mg/dl (7-17) H 05/09/24 02:14
Creatinine 0.7 mg/dL (0.6-1.0) 05/09/24 02:14
Glucose 218 mg/dl (70-99) H 05/09/24 02:14
Troponins
05/08/24 05/08/24 05/08/24
14:41 14:45 19:43
Troponin I Cancelled 0.253 H* 0.434 H* D
05/08/24 05/09/24 05/09/24
22:46 02:14 08:41
Troponin I 0.548 H* D 0.732 H* D 0.716 H*
05/09/24
16:00
Troponin I Cancelled
Vital Signs and I&O:
Vital Signs
Temp Pulse Resp BP Pulse Ox
98.4 F 76 20 139/56 97
05/09/24 10:55 05/09/24 11:00 05/09/24 10:55 05/09/24 10:57 05/09/24 10:57
Vital Signs
Temp Pulse Resp BP Pulse Ox
98.4 F 76 20 139/56 97
05/09/24 10:55 05/09/24 11:00 05/09/24 10:55 05/09/24 10:57 05/09/24 10:57
Intake & Output
05/07/24 05/08/24 05/09/24 05/10/24
07:59 07:59 07:59 07:59
Intake Total 180 / 180
Balance 180 / 180
Physical Exam
Physical Exam
GEN: No distress, awake, alert, oriented x3
HEENT: supple, anicteric, mmm, eomi
LUNGS: CTA B/L, no wheezes/rales
CV: Irreg, S1/S2, 2/6 syst LSB
ABD: soft, BS+, NT/ND
EXT: No cyanosis, clubbing, edema
NEURO: Gross non-focal
SKIN: Warm, pink, dry. No rash
[2024-05-09 13:26] LABS: APTT 30.1 Sec (23.4-35.0)
[2024-05-09] MEDS: NORVASC 5 MG PO (13:28)
[2024-05-09] MEDS: HEPARIN 25000 UNITS/250 ML IV (13:29)
--- NOTE | 2024-05-09 15:38 | W.PN.HOSP.TC ---
Today's Communication/Plan
-
Monitor vital signs
see plan
IV hep
cardizem
echo
Assessment / Plan
Assessment / Plan
General: Well Developed, Well Nourished, No Apparent Distress and Conversant
HEENT: NormoCephalic, Moist mucous membranes and Atraumatic
Respiratory: Clear
Cardiac: S1/S2, Tachycardia and Murmur (loud ejection SM at LUSB ); No Rub
GI: Soft, Non Tender, Non Distended and Normal Bowel Sounds
Musculoskeletal: No Clubbing, No Cyanosis and No Edema
Neuro: Nonfocal/grossly intact
Psych: Calm
CP worse with deep breathing likely secondary to severe arctic stenosis
Scheduled for TAVR next week
CT surgery following here
Cardiology following
Of note: significant dye allergy at the time of a CAT scan and concern regarding another catheterization.
- Card catheterization in April 2024 did not reveal significant disease.
- morphine for chest discomfort per Card
Cardiology following
Echo
IV heparin
Elevated troponin likely non-CT myocardial injury related due to severe aortic stenosis
Monitor
Suspected A-fib/atrial flutter with RVR
Continue with Cardizem
Benign hypertension
-c/w REGISTERED NURSE CARDIAC Amlodipine
HLD
- c/w REGISTERED NURSE CARDIAC
DVT Px: LMWH
Code: full code
Anticipated Discharge: > 48 hours
Subjective/Interval History
-
Date of Service: May 09, 2024
Denies chest pain
Objective Data
-
Labs:
Laboratory Results
05/09/24 05/09/24
13:06 19:30
APTT 30.1 Pending
Vital Signs:
Vital Signs
Temp Pulse Resp BP Pulse Ox
99.1 F 82 20 123/84 98
05/09/24 15:19 05/09/24 13:30 05/09/24 15:19 05/09/24 13:28 05/09/24 15:19
I&O
05/08/24 05/09/24 05/10/24
06:59 06:59 06:59
Intake Total 180 / 180 480 / 480
Output Total 400 / 400
Balance 180 / 180 80 / 80
--- NOTE | 2024-05-09 16:08 | CM ---
Chart reviewed. Patient is independent of ADLS, lives with her in a 1 [address], 5 GABY, has a walking stick at home if needed. Preoperative and postoperative instructions and restrictions teaching done with the patient, along with showering
guidelines. Patient is agreeable to a visit by CT Transitional RN. Plan is for the patient to return home with CT Transitional RN. CM to follow
[2024-05-09 20:14] LABS: APTT 36.6 Sec (23.4-35.0)
[2024-05-09] MEDS: LIPITOR 10 MG PO (20:57)
--- NOTE | 2024-05-10 00:34 | PTCARENOTE ---
Assumed care of pt from 7-11 RN. Pt resting in bed- hep and dilt. running. Plan of care discussed. pt verbalized understanding.
[2024-05-10 02:50] VITALS: BP 123/66
[2024-05-10 03:03] LABS: % Basophils 0.3 % (0-2); % Immature Granulocytes 0.6 % (0-0.5); % Lymphocytes 16.3 % (20.5-51.1); % Monocytes 5.1 % (1.7-9.3); % Neutrophils 75.7 % (42.2-75.2); Absolute Basophils 0.1 10^3/uL (0-0.2); Absolute Eosinophils 0.3 10^3/uL (0-0.7); Absolute Immature Granulocytes 0.1 10^3/uL (0-0.05); Absolute Lymphocytes 2.7 10^3/uL (1.2-3.4); Absolute Monocytes 0.8 10^3/uL (0.1-0.6); Absolute Neutrophils 12.4 10^3/uL (1.4-6.5); Hemoglobin 11.1 g/dL (12.0-16.0); Mean Corp Hgb Conc. 32.6 g/dL (33.0-37.0); Mean Corpuscular Hgb 26.3 pg (27.0-31.0); Mean Corpuscular Volume 80.6 fL (81.0-99.0); Mean Platelet Volume 10.3 fL (7.4-10.4); Nucleated Red Blood Cells % 0 %; Platelet Count 289 10^3/uL (130-400); Red Blood Cell Count 4.22 10^6/uL (4.20-5.40); Red Cell Dist. Width 15.2 % (11.5-14.5); White Blood Cell Count 16.4 10^3/uL (4.8-10.8)
[2024-05-10 03:06] VITALS: BMI 25.4
[2024-05-10 03:15] LABS: APTT 49.1 Sec (23.4-35.0)
[2024-05-10 03:26] LABS: ALT (SGPT) 71 U/L (0-35); AST (SGOT) 28 U/L (14-36); Albumin 3.3 g/dl (3.5-5.0); Alkaline Phosphatase 80 U/L (38-126); Blood Urea Nitrogen 21 mg/dl (7-17); Calcium 8.5 mg/dl (8.4-10.2); Carbon Dioxide 25 mmol/L (22-30); Chloride 102 mmol/L (98-107); Estimated Creatinine Clearance 51 ml/min; Glucose 178 mg/dl (70-99); Potassium 3.7 mmol/L (3.5-5.1); Sodium 135 mmol/L (135-145); Total Bilirubin 0.9 mg/dl (0.2-1.3); Total Protein 5.8 g/dl (6.3-8.2); eGFR > 60.00
[2024-05-10 07:59] VITALS: BP 134/67
--- NOTE | 2024-05-10 08:24 | W.PN.CARDCBS ---
Addendum entered and electronically signed by Beto Schreiber MD 05/10/24 08:32:
LFTs and white count continues to improve
Original Note:
Today's Communication / Plan
-
Remains in rate controlled A. tach versus atrial flutter
Continue IV heparin
For TAVR on 05/15/2024
Impression / Plan
-
Primary Parts Clerk: Dr. Be of [facility]
Assessment:
Presentation with CP, SOB
Suspected atrial flutter with RVR however appears more like afib on tele in ER at present
Leukocytosis
Elevated troponin, suspected nonischemic myocardial injury in setting of rapid AF and severe
Severe , planned for TAVR 05/15/24
History of syncope
HTN
HLD
Hypothyroidism
History of JEAN/oophorectomy
IV contrast allergy
ECHO 04/18/24 at [facility]: EF 54%, severe with peak/mean gradients 98/60 mmHg, NIKKI 0.33 cm�, trace to mild AI, moderate MAC, mild to moderate MR
Echo 05/09/2024: EF 50 to 55%, mild mitral stenosis with a mean gradient of 6 point mercury, severe aortic stenosis with mean gradient of 73 mmHg aortic valve area 0.5 cm�, mild AI, PA systolic 37 mmHg
Plan:
She remains in rate control atrial fibrillation versus atrial tachycardia
Continue IV heparin
Will need to decide about possible cardioversion after TAVR are has been completed
Will need eventual Eliquis
For TAVR on 05/15/2024
Progress Note - Parts Clerk
Subjective
Date of Service: May 10, 2024
No complaints
Objective
Labs:
05/10/24 02:52
05/10/24 02:52
Labs
Hgb 11.1 g/dL (12.0-16.0) L 05/10/24 02:52
Hct 34.0 % (37.0-47.0) L 05/10/24 02:52
Plt Count 289 10^3/uL (130-400) 05/10/24 02:52
PT 12.9 Sec (11.4-14.6) 05/08/24 15:18
INR 0.92 05/08/24 15:18
APTT 49.1 Sec (23.4-35.0) H 05/10/24 02:52
Sodium 135 mmol/L (135-145) 05/10/24 02:52
Potassium 3.7 mmol/L (3.5-5.1) 05/10/24 02:52
BUN 21 mg/dl (7-17) H 05/10/24 02:52
Creatinine 0.7 mg/dL (0.6-1.0) 05/10/24 02:52
Glucose 178 mg/dl (70-99) H 05/10/24 02:52
Troponins
05/08/24 05/08/24 05/08/24
14:41 14:45 19:43
Troponin I Cancelled 0.253 H* 0.434 H* D
05/08/24 05/09/24 05/09/24
22:46 02:14 08:41
Troponin I 0.548 H* D 0.732 H* D 0.716 H*
05/09/24
16:00
Troponin I Cancelled
Vital Signs and I&O:
Vital Signs
Temp Pulse Resp BP Pulse Ox
97.8 F 89 18 123/66 97
05/10/24 02:58 05/10/24 02:50 05/10/24 02:58 05/10/24 02:50 05/10/24 02:58
Vital Signs
Temp Pulse Resp BP Pulse Ox
97.8 F 89 18 123/66 97
05/10/24 02:58 05/10/24 02:50 05/10/24 02:58 05/10/24 02:50 05/10/24 02:58
Intake & Output
05/08/24 05/09/24 05/10/24 05/11/24
06:59 06:59 06:59 06:59
Intake Total 180 / 180 480 / 480
Output Total 400 / 400
Balance 180 / 180 80 / 80
Physical Exam
Physical Exam
General: Well developed, well nourished in NAD.
Neck: Supple, no JVD, HJR, carotids +2 B/L, no bruits bilaterally.
Heart: Non displaced PMI, irregular, 2/6 basal systolic murmur, No S3, S4, no rubs.
Lungs: Clear to auscultation bilaterally, no wheeze, rhonchi, rubs bilaterally,
normal expiratory phase.
Extremities: No clubbing, cyanosis or edema bilaterally.
Neuro: Grossly nonfocal, awake, alert and oriented x3.
[2024-05-10] MEDS: CARDIZEM 125 IV (09:40)
[2024-05-10 10:31] LABS: APTT 61.5 Sec (23.4-35.0)
[2024-05-10 11:12] VITALS: BP 115/52
[2024-05-10] MEDS: NORVASC 5 MG PO (12:33)
[2024-05-10] MEDS: HEPARIN 25000 UNITS/250 ML IV (13:14)
--- NOTE | 2024-05-10 14:24 | W.PN.HOSP.TC ---
Today's Communication/Plan
-
Monitor vital signs see plan
Continue with Cardizem, IV heparin
Plan for TAVR next week
Assessment / Plan
Assessment / Plan
General: Well Developed, Well Nourished, No Apparent Distress and Conversant
HEENT: NormoCephalic, Moist mucous membranes and Atraumatic
Respiratory: Clear
Cardiac: S1/S2, Tachycardia and Murmur (loud ejection SM at LUSB ); No Rub
GI: Soft, Non Tender, Non Distended and Normal Bowel Sounds
Musculoskeletal: No Clubbing, No Cyanosis and No Edema
Neuro: Nonfocal/grossly intact
Psych: Calm
CP worse with deep breathing likely secondary to severe arctic stenosis
Scheduled for TAVR next week
CT surgery following here
Cardiology following
Of note: significant dye allergy at the time of a CAT scan and concern regarding another catheterization.
- Card catheterization in April 2024 did not reveal significant disease.
- morphine for chest discomfort per Card
Cardiology following
Echo 05/10 with preserved EF. Severe aortic stenosis.
IV heparin
Leukocytosis
Monitor, no fever
Elevated troponin likely non-[place] myocardial injury related due to severe aortic stenosis
Monitor
Suspected A-fib/atrial flutter with RVR
Continue with Cardizem
Continue with IV heparin
History of colitis per patient
LFTs elevated
Monitor
Benign hypertension
-c/w [employer] F[employer]ER Amlodipine
HLD
- c/w [employer] F[employer]ER
DVT Px: Heparin
Code: full code
Anticipated Discharge: > 48 hours
Subjective/Interval History
-
Date of Service: May 10, 2024
denies pain
Objective Data
-
Labs:
Laboratory Results
05/10/24 05/10/24 05/10/24
02:52 10:13 16:45
WBC 16.4 H
Hgb 11.1 L
Hct 34.0 L
Plt Count 289
APTT 49.1 H 61.5 H Pending
Sodium 135
Potassium 3.7
Chloride 102
Carbon Dioxide 25
BUN 21 H
Creatinine 0.7
Glucose 178 H
Calcium 8.5
Total Bilirubin 0.9
AST 28
ALT 71 H
Alkaline Phosphatase 80
Vital Signs:
Vital Signs
Temp Pulse Resp BP Pulse Ox
98.5 F 77 16 115/52 95
05/10/24 11:14 05/10/24 12:33 05/10/24 11:14 05/10/24 12:33 05/10/24 11:14
I&O
05/09/24 05/10/24 05/11/24
06:59 06:59 06:59
Intake Total 180 / 180 480 / 480
Output Total 400 / 400
Balance 180 / 180 80 / 80
[2024-05-10] MEDS: DULCOLAX 10 MG RECTAL (14:54)
[2024-05-10 15:43] VITALS: BP 145/57
[2024-05-10 17:43] LABS: APTT 68.3 Sec (23.4-35.0)
[2024-05-10 18:33] VITALS: BP 143/58
[2024-05-10 22:18] VITALS: BP 114/94
[2024-05-10] MEDS: LIPITOR 10 MG PO (22:36)
[2024-05-11] VITALS (16 sets, daily range): BP systolic 114–143; BP diastolic 46–75; BMI 25.6
[2024-05-11] MEDS: CARDIZEM 125 IV ×2 (00:27→13:47)
[2024-05-11 00:48] LABS: APTT 85.2 Sec (23.4-35.0)
--- NOTE | 2024-05-11 05:25 | PTCARENOTE ---
Patient remains Afib on tele monitor, HR in the 70-80's at rest. Patient ambulates self to [facility], and HR accelerates briefly to the 130s. IV Cardizem infusing at 10ml/hr. IV Heparin gtt infusing, next ptt due at 06:25. Patient denies any pain or
discomfort. POC ongoing, call mauro within reach.
[2024-05-11 06:44] LABS: % Basophils 0.3 % (0-2); % Eosinophils 2.6 % (0-6); % Immature Granulocytes 0.6 % (0-0.5); % Lymphocytes 18.7 % (20.5-51.1); % Monocytes 5.4 % (1.7-9.3); % Neutrophils 72.4 % (42.2-75.2); Absolute Basophils 0.1 10^3/uL (0-0.2); Absolute Eosinophils 0.4 10^3/uL (0-0.7); Absolute Immature Granulocytes 0.1 10^3/uL (0-0.05); Absolute Lymphocytes 2.8 10^3/uL (1.2-3.4); Absolute Monocytes 0.8 10^3/uL (0.1-0.6); Hematocrit 35.2 % (37.0-47.0); Hemoglobin 11.5 g/dL (12.0-16.0); Mean Corp Hgb Conc. 32.7 g/dL (33.0-37.0); Mean Corpuscular Hgb 26.5 pg (27.0-31.0); Mean Corpuscular Volume 81.1 fL (81.0-99.0); Mean Platelet Volume 11.2 fL (7.4-10.4); Nucleated Red Blood Cells % 0 %; Platelet Count 321 10^3/uL (130-400); Red Blood Cell Count 4.34 10^6/uL (4.20-5.40); Red Cell Dist. Width 15.2 % (11.5-14.5); White Blood Cell Count 15.2 10^3/uL (4.8-10.8)
[2024-05-11 06:53] LABS: APTT 87.9 Sec (23.4-35.0)
[2024-05-11 07:11] LABS: ALT (SGPT) 56 U/L (0-35); AST (SGOT) 26 U/L (14-36); Albumin 3.5 g/dl (3.5-5.0); Alkaline Phosphatase 86 U/L (38-126); Blood Urea Nitrogen 19 mg/dl (7-17); Calcium 8.8 mg/dl (8.4-10.2); Carbon Dioxide 25 mmol/L (22-30); Chloride 102 mmol/L (98-107); Estimated Creatinine Clearance 45 ml/min; Glucose 165 mg/dl (70-99); Potassium 3.8 mmol/L (3.5-5.1); Sodium 136 mmol/L (135-145); Total Bilirubin 0.9 mg/dl (0.2-1.3); Total Protein 6.1 g/dl (6.3-8.2); eGFR > 60.00
[2024-05-11] MEDS: HEPARIN 25000 UNITS/250 ML IV (08:15)
[2024-05-11] MEDS: NORVASC 5 MG PO (11:43)
--- NOTE | 2024-05-11 14:26 | W.PN.HOSP.TC ---
Today's Communication/Plan
-
monitor vital signs
see plan
Continue with Cardizem and heparin
Plan for TAVR next week
Assessment / Plan
Assessment / Plan
General: Well Developed, Well Nourished, No Apparent Distress and Conversant
HEENT: NormoCephalic, Moist mucous membranes and Atraumatic
Respiratory: Clear
Cardiac: S1/S2, Tachycardia and Murmur (loud ejection SM at LUSB ); No Rub
GI: Soft, Non Tender, Non Distended and Normal Bowel Sounds
Musculoskeletal: No Clubbing, No Cyanosis and No Edema
Neuro: Nonfocal/grossly intact
Psych: Calm
CP worse with deep breathing likely secondary to severe arctic stenosis
Scheduled for TAVR next week
CT surgery following here
Cardiology following
Of note: significant dye allergy at the time of a CAT scan and concern regarding another catheterization.
- Card catheterization in April 2024 did not reveal significant disease.
- morphine for chest discomfort per Card
Cardiology following
Echo 05/10 with preserved EF. Severe aortic stenosis.
IV heparin
Leukocytosis
Monitor, no fever
Elevated troponin likely non-GA myocardial injury related due to severe aortic stenosis
Monitor
Suspected A-fib/atrial flutter with RVR
Continue with Cardizem
Continue with IV heparin
History of colitis per patient
LFTs elevated
Monitor
Benign hypertension
-c/w BASEBALL HAND SEWER Amlodipine
HLD
- c/w BASEB[employer] SEWER
DVT Px: Heparin
Code: full code
Anticipated Discharge: > 48 hours
Subjective/Interval History
-
Date of Service: May 11, 2024
denies pain
Objective Data
-
Labs:
Laboratory Results
05/11/24
06:22
WBC 15.2 H
Hgb 11.5 L
Hct 35.2 L
Plt Count 321
APTT 87.9 H
Sodium 136
Potassium 3.8
Chloride 102
Carbon Dioxide 25
BUN 19 H
Creatinine 0.8
Glucose 165 H
Calcium 8.8
Total Bilirubin 0.9
AST 26
ALT 56 H
Alkaline Phosphatase 86
Vital Signs:
Vital Signs
Temp Pulse Resp BP Pulse Ox
99 F 89 20 114/46 97
05/11/24 10:58 05/11/24 12:00 05/11/24 10:58 05/11/24 11:43 05/11/24 11:00
I&O
05/10/24 05/11/24 05/12/24
06:59 06:59 06:59
Intake Total 480 / 480 1516.5 / 1516.5
Output Total 400 / 400 800 / 800 200 / 200
Balance 80 / 80 716.5 / 716.5 -200 / -200
[2024-05-11 16:36] LABS: Glucose - Point of Care 176 mg/dl (70-99)
[2024-05-11 17:00] LABS: Hematocrit 37.1 % (37.0-47.0); Hemoglobin 12.1 g/dL (12.0-16.0); Mean Corp Hgb Conc. 32.6 g/dL (33.0-37.0); Mean Corpuscular Hgb 26.5 pg (27.0-31.0); Mean Corpuscular Volume 81.4 fL (81.0-99.0); Mean Platelet Volume 10.6 fL (7.4-10.4); Platelet Count 361 10^3/uL (130-400); Red Blood Cell Count 4.56 10^6/uL (4.20-5.40); Red Cell Dist. Width 15.2 % (11.5-14.5); White Blood Cell Count 19.7 10^3/uL (4.8-10.8)
[2024-05-11 17:09] LABS: INR 0.98; PT 13.3 Sec (11.4-14.6)
[2024-05-11 17:11] LABS: APTT 65.6 Sec (23.4-35.0)
[2024-05-11 17:11] LABS: Lactic Acid 3.8 mmol/L (0.7-2.0)
--- NOTE | 2024-05-11 17:12 | W.PN.UPDATE ---
Update Note
Progress Note Update
Around 4:30 PM code [address] East was present in the room. Patient developed significant bradycardia and subsequently lost her pulse. Patient was on Cardizem drip which was stopped. Patient required CPR for less than a minute and
eventually got her pulse back. Basic labs ordered,CXR,EKG. Post code i updated cardiology. Also spoke with CT surgery PA who spoke with Dr. Cunningham who is requesting temporary wire to be placed today and permanent pacemaker placed tomorrow. will
make her NPO for now. This was communicated with cardiology. Will also transfer patient to CVICU. Patient's spouse updated by me.
General: Well developed, well nourished in NAD.
Heart: irregular, systolic murmur
Lungs: Clear to auscultation bilaterally, no wheeze
Abdomen: Normal bowel sounds, soft, non-tender, non-distended.
Extremities: No clubbing, cyanosis or edema bilaterally.
Neuro: Grossly nonfocal, awake, alert and oriented x3.
Total Critical Care Time_37____ minutes. I was immediately available to the patient and staff. I personally examined, reviewed labs, diagnostic images/reports, interpretations, treatment plans, discussed patient care with other providers and
family or caregivers (if patient is unable to make decisions), entered orders as appropriate and documented the medical record.
[2024-05-11 17:19] LABS: ALT (SGPT) 60 U/L (0-35); AST (SGOT) 33 U/L (14-36); Alkaline Phosphatase 98 U/L (38-126); Blood Urea Nitrogen 24 mg/dl (7-17); Calcium 9.2 mg/dl (8.4-10.2); Carbon Dioxide 21 mmol/L (22-30); Chloride 101 mmol/L (98-107); Estimated Creatinine Clearance 40 ml/min; Glucose 214 mg/dl (70-99); Sodium 135 mmol/L (135-145); Total Bilirubin 0.6 mg/dl (0.2-1.3); Total Protein 6.6 g/dl (6.3-8.2); eGFR > 60.00
--- NOTE | 2024-05-11 17:19 | W.PN.CARDCBS ---
Today's Communication / Plan
-
Status post bradycardia arrhythmia arrest
Possibly due to aortic stenosis
Interventional cardiology is considering temporary pacer and discussing further with CT surgery
Transfer to CVICU
Impression / Plan
-
Primary Contact Acid Plant Operator: Dr. Be of [facility]
Assessment:
Status post bradycardic cardiac arrest 05/11/2019
Presentation with CP, SOB
Suspected atrial flutter with RVR however appears more like afib on tele in ER at present
Leukocytosis
Elevated troponin, suspected nonischemic myocardial injury in setting of rapid AF and severe
Severe , planned for TAVR 05/15/24
History of syncope
HTN
HLD
Hypothyroidism
History of JEAN/oophorectomy
IV contrast allergy
ECHO 04/18/24 at [facility]: EF 54%, severe with peak/mean gradients 98/60 mmHg, NIKKI 0.33 cm�, trace to mild AI, moderate MAC, mild to moderate MR
Echo 05/09/2024: EF 50 to 55%, mild mitral stenosis with a mean gradient of 6 point mercury, severe aortic stenosis with mean gradient of 73 mmHg aortic valve area 0.5 cm�, mild AI, PA systolic 37 mmHg
Plan:
Patient had episode of bradycardia arrhythmia followed by arrest with brief CPR
Patient now without complaints of mental ENT
Remains in atrial fibrillation is atrial tachycardia with heart rate in the 70s
IV Cardizem has been discontinued
Discussed with interventional cardiology about temporary transvenous pacer versus continued close follow-up. He will discuss further with CT surgery
Of note patient had multiple syncopal episode in the past and this may likely be mostly due to aortic stenosis and perhaps pacemaker may not be needed
Being transferred to CVICU
Discussed with primary service and nursing
For TAVR on 05/15/2024
Critical care time 32 minutes so far
Progress Note - Contact Acid Plant Operator
Subjective
Date of Service: May 11, 2024
Called to see patient after code. Patient with bradycardia arrhythmia and had CPR for 1 to 2 minutes. Patient now without complaints.
Objective
Labs:
05/11/24 16:44
Labs
Hgb 12.1 g/dL (12.0-16.0) 05/11/24 16:44
Hct 37.1 % (37.0-47.0) 05/11/24 16:44
Plt Count 361 10^3/uL (130-400) 05/11/24 16:44
PT 12.9 Sec (11.4-14.6) 05/08/24 15:18
INR 0.92 05/08/24 15:18
APTT 87.9 Sec (23.4-35.0) H 05/11/24 06:22
Sodium 136 mmol/L (135-145) 05/11/24 06:22
Potassium 3.8 mmol/L (3.5-5.1) 05/11/24 06:22
BUN 19 mg/dl (7-17) H 05/11/24 06:22
Creatinine 0.8 mg/dL (0.6-1.0) 05/11/24 06:22
Glucose 165 mg/dl (70-99) H 05/11/24 06:22
Troponins
05/08/24 05/08/24 05/09/24
19:43 22:46 02:14
Troponin I 0.434 H* D 0.548 H* D 0.732 H* D
05/09/24 05/09/24
08:41 16:00
Troponin I 0.716 H* Cancelled
Vital Signs and I&O:
Vital Signs
Temp Pulse Resp BP Pulse Ox
98 F 89 20 114/46 99
05/11/24 17:12 05/11/24 12:00 05/11/24 17:12 05/11/24 11:43 05/11/24 17:12
Vital Signs
Temp Pulse Resp BP Pulse Ox
98 F 89 20 114/46 99
05/11/24 17:12 05/11/24 12:00 05/11/24 17:12 05/11/24 11:43 05/11/24 17:12
Intake & Output
05/09/24 05/10/24 05/11/24 05/12/24
06:59 06:59 06:59 06:59
Intake Total 180 / 180 480 / 480 1516.5 / 1516.5
Output Total 400 / 400 800 / 800 200 / 200
Balance 180 / 180 80 / 80 716.5 / 716.5 -200 / -200
Physical Exam
Physical Exam
General: Well developed, well nourished in NAD.
Neck: Supple, no JVD, HJR, carotids +2 B/L, no bruits bilaterally.
Heart: Non displaced PMI, irregular, 2/6 basal systolic murmur, no S3, S4, no rubs.
Lungs: Clear to auscultation bilaterally, no wheeze, rhonchi, rubs bilaterally,
normal expiratory phase.
Abdomen: Normal bowel sounds, soft, non-tender, non-distended.
Extremities: No clubbing, cyanosis or edema bilaterally.
Neuro: Grossly nonfocal, awake, alert and oriented x3.
--- NOTE | 2024-05-11 17:20 | W.PN.UPDATE ---
Update Note
Progress Note Update
Called to CODE 9 as nurse noted patient with bradycardia in the 30s on lunchroom monitor. She found patient unresponsive, dorsey, and agonal. Patient had approximately 3 minutes of CPR with return of ROSC. IV Cardizem drip was discontinued.
Temporary pacing pads were placed and attached to monitor. Patient neurologically intact and conversant with staff. Reviewed telemetry strips with Dr. Kaur and no conversion pause noted. Patient currently in AF vs atria tachycardia. Drs. Maldonado
(covering) and Dr. Cunningham (performing TAVR 05/15)notified of event. bar supervisor, Dr. Gramajo, notified by Dr. Schreiber. Drs. Maldonado and Avila discussed temporary pacing wire and patient taken to laborer operator for procedure.
--- NOTE | 2024-05-11 17:26 | PTCARENOTE ---
Pt's heart monitor alarmed for heart rate noted to be in the 30's. Pt noted to be lee, unresponsive, agonal breathing and pulseless. Code 9 called. See code 9 sheet.
[2024-05-11 17:27] LABS: Troponin I 0.316 ng/ml
[2024-05-11 17:32] LABS: Procalcitonin 0.13 ng/ml (0.0-0.25)
[2024-05-11 17:40] LABS: % Basophils 0.5 % (0-2); % Eosinophils 2.4 % (0-6); % Lymphocytes 22.5 % (20.5-51.1); % Monocytes 6.4 % (1.7-9.3); % Neutrophils 66.2 % (42.2-75.2); Absolute Basophils 0.1 10^3/uL (0-0.2); Absolute Eosinophils 0.5 10^3/uL (0-0.7); Absolute Immature Granulocytes 0.4 10^3/uL (0-0.05); Absolute Lymphocytes 4.4 10^3/uL (1.2-3.4); Absolute Monocytes 1.3 10^3/uL (0.1-0.6); Absolute Neutrophils 13.1 10^3/uL (1.4-6.5); Nucleated Red Blood Cells % 0.2 %
--- NOTE | 2024-05-11 17:54 | ITS.CL.PN ---
Insurance Claims Processor - Procedure Note
Procedure
Procedure Note:
CARDIAC CATHETERIZATION REPORT
Date of Procedure: 05/11/2023
Referring: Dr. Moise Maldonado MD
Indication: bradycardic arrest
PROCEDURE(S): temporary venous pacemaker
ACCESS: 7F right femoral vein
7 Amharic right femoral vein access was obtained under ultrasound guidance. Under fluoroscopic guidance a temporary venous pacemaker was advanced to the right ventricular apex with capture verified down to a threshold of 0.6 mA. The sheath was sewn
in place and the pacing wire secured with Tegaderm. The pacer was set to VVI 50 bpm, output of 10 mA.
CONCLUSIONS
1. Successful placement of a temporary venous pacemaker via right femoral vein access.
RECOMMENDATIONS
1. Daily testing of capture threshold.
2. Consideration for PPM tomorrow.
3. Proceed with TAVR .
Signed: Delmar Gramajo MD, PhD
--- NOTE | 2024-05-11 18:00 | PTCARENOTE ---
Post code. RN continued to be with pt. Pt AAO x3. VSS. During phone call to pt's , pt started to feel nauseous and diaphoretic. Pt's heart rate noted to go into the 40's. Pt's heart rate recovered to pt's baseline of atrial
fibrillation 70-90's. VS monitored, external pacer pads intact and connected to zoll monitor. Awaiting pathology laboratory technologist personel to transport pt for a temporary PPM.
--- NOTE | 2024-05-11 18:04 | PTCARENOTE ---
Report given to energy systems laboratory director RN. Pt to energy systems laboratory director w/ RN's x2.
--- NOTE | 2024-05-11 19:15 | PTCARENOTE ---
Received pt from medical lab tech instructor via bed with medical lab tech instructor RNs; A-fib on monitor and VSS; Temporary pacer in right groin set to VVI 50/10/0.8, no pacing noted on monitor; positive pedal pulses; pure wick applied; call mauro within reach.
[2024-05-11] MEDS: LIPITOR 10 MG PO (21:41)
--- NOTE | 2024-05-11 23:28 | PTCARENOTE ---
pt resting comfortably in bed, VSS, R groin site intact, A fib per tele monitor HR 70s. assessment remains unchanged
[2024-05-12] VITALS (17 sets, daily range): BP systolic 101–138; BP diastolic 51–105; BMI 25.6
[2024-05-12] MEDS: TYLENOL 650 MG PO ×2 (02:06→11:35)
[2024-05-12] MEDS: HEPARIN 25000 UNITS/250 ML IV (02:10)
--- NOTE | 2024-05-12 04:10 | PTCARENOTE ---
VSS, a-fib per tele monitor w/ HR in 70s. assessment remains unchanged
[2024-05-12 06:35] LABS: % Basophils 0.4 % (0-2); % Eosinophils 2.7 % (0-6); % Immature Granulocytes 0.6 % (0-0.5); % Lymphocytes 19.9 % (20.5-51.1); % Monocytes 6.7 % (1.7-9.3); % Neutrophils 69.7 % (42.2-75.2); Absolute Basophils 0.1 10^3/uL (0-0.2); Absolute Eosinophils 0.3 10^3/uL (0-0.7); Absolute Immature Granulocytes 0.1 10^3/uL (0-0.05); Absolute Lymphocytes 2.5 10^3/uL (1.2-3.4); Absolute Monocytes 0.8 10^3/uL (0.1-0.6); Absolute Neutrophils 8.7 10^3/uL (1.4-6.5); Hematocrit 32.9 % (37.0-47.0); Hemoglobin 10.6 g/dL (12.0-16.0); Mean Corp Hgb Conc. 32.2 g/dL (33.0-37.0); Mean Corpuscular Hgb 26.6 pg (27.0-31.0); Mean Corpuscular Volume 82.7 fL (81.0-99.0); Mean Platelet Volume 10.5 fL (7.4-10.4); Nucleated Red Blood Cells % 0 %; Platelet Count 297 10^3/uL (130-400); Red Blood Cell Count 3.98 10^6/uL (4.20-5.40); Red Cell Dist. Width 15.2 % (11.5-14.5); White Blood Cell Count 12.5 10^3/uL (4.8-10.8)
[2024-05-12 06:42] LABS: APTT 124.9 Sec (23.4-35.0)
[2024-05-12 07:47] LABS: ALT (SGPT) 64 U/L (0-35); AST (SGOT) 39 U/L (14-36); Albumin 3.3 g/dl (3.5-5.0); Alkaline Phosphatase 86 U/L (38-126); Blood Urea Nitrogen 20 mg/dl (7-17); Calcium 8.7 mg/dl (8.4-10.2); Carbon Dioxide 23 mmol/L (22-30); Chloride 104 mmol/L (98-107); Estimated Creatinine Clearance 51 ml/min; Glucose 141 mg/dl (70-99); Magnesium 1.8 mg/dl (1.6-2.3); Potassium 4.2 mmol/L (3.5-5.1); Sodium 137 mmol/L (135-145); Total Bilirubin 0.5 mg/dl (0.2-1.3); Total Protein 5.8 g/dl (6.3-8.2); eGFR > 60.00
--- NOTE | 2024-05-12 09:17 | PTCARENOTE ---
assumed care of pt from previous shift RN, aflutter/ afib on tele, VSS. + peripheral pulses, pt denies CP. Lung diminished, pox 99% on 2L NC. +BS, npo maintained pre PPM. Purewick due to bedrest. TV PM via right femoral sheath set to back up 50/10.
Heparin infusing at 13.5ml/hr via right FA IV, left ac PIV flushes easily. Plan of care reviewed w the pt and questions encouraged.
--- NOTE | 2024-05-12 10:30 | PTCARENOTE ---
pt cleansed w CHG, gown and sheet changed.
--- NOTE | 2024-05-12 10:31 | PTCARENOTE ---
echo at bedside
[2024-05-12] MEDS: NORVASC 5 MG PO (11:35)
--- NOTE | 2024-05-12 12:34 | ITS.CL.PACE ---
Or Manager - Pacemaker Implant
Pacemaker Implant
Procedure Report:
PACEMAKER IMPLANT REPORT
Primary wound care nurse: Dr Be ([facility])
Date of Procedure: May 12, 2024
Procedure:
Implantation of dual-chamber permanent pacemaker utilizing the left bundle branch for conduction system pacing
Indication/Diagnosis:
Non-reversible symptomatic bradycardia due to third degree atrioventricular block.
HISTORY:
Patient has had recurrent episodes of syncope with unclear etiology. She is admitted now and plan for TAVR for severe symptomatic aortic stenosis. During this hospital stay she has been in an atrial tachycardia. During this hospital stay she had
bradycardia arrhythmic cardiac arrest requiring brief CPR. Bradycardia arrhythmic arrest was due to complete heart block, transient. There is no reversible etiology. Is likely that her prior episodes of syncope are related to bradycardia
arrhythmic events although aortic stenosis may be playing a role as well.
Emergent temporary pacing wire was placed and remains in place.
Implantation of dual-chamber permanent pacemaker is requested by his TAVR team to be placed prior to planned TAVR in 3 days.
Atrial tachyarrhythmia is noted to be paroxysmal.
After informed consent was obtained, 'time out' was called and confirmed, the patient was prepped and draped in a sterile fashion. Lidocaine with epi was used for local anesthesia. Central venous access was obtained via subclavian venipuncture. An
incision was made along the left chest and a pre-pectoral pocket was formed. Using a Seldinger technique and peel-away sheaths, the pacing leads were placed under fluoroscopic guidance.
Fluoroscopy was used to determine likely anatomic site for left bundle branch pacing. The Steelwedge Softwaretronic C315 sheath was used to deliver the Medtronic 3830 Selectsecure pacing lead with the helix exposed just exposed from the sheath tip during continuous
monitoring when pacemapping the septum during gentle clockwise rotation to obtain a paced QRS morphology of a W pattern in lead V1. Once the suspected optimal site was identified, lead deployment was performed with several rapid rotations as paced
QRS morphology was intermittently monitored until a paced QRS complex in lead V1 demonstrated development of an R wave [ ] (qR or rSR).
Unipolar pacing impedance dropped by approximately 100 ohms suggesting it had reached the left ventricular subendocardial.
Stable VEgm injury current is present throughout final lead position including at end of case, suggesting there was no perforation through the septum into the LV cavity.
Unipolar pacing impedance is 850 Ohms
Unipolar pacing threshold is stable at 0.75 V @ 0.4 ms.
Final conduction system paced QRS complex duration is 92 ms
LVAT is 65 ms and peak V5 -> peak V1 timing is 39 ms
Right atrial lead was placed at the RAA.
Once testing (see below) showed adequate and stable function, the leads were secured using the suture sleeves. The pocket was liberally irrigated with antibiotic solution. The leads were connected to the generator header and the leads and
generator were placed within the pocket. Fluoroscopy confirmed stable lead position. The pocket was closed in the typical fashion.
Fluoroscopy was used to guide lead placement.
IMPLANTS:
Medtronic [id number], SN: [id number], Left Pectoral
RA: Medtronic 5076-45, SN: [id number], RAA
Left Bundle: Medtronic 3830 , SN:[id number], Interventricular septum at LBB
DEVICE TESTING:
Sensing: RA 1 (AT) mV, RV 18 mV
Capture: RA N/A, RV 0.75 V@0.4ms
Ohms: RA 437, RV 703 (bipolar)
FINAL PROGRAMMING
Ministerio Pacing: DDDR 60-130 ppm
COMPLICATIONS:
None
CONCLUSIONS:
Successful implant of dual chamber permanent pacemaker utilizing Left Bundle Branch conduction system capture for ventricular resynchronization pacing.
RECOMMENDATIONS:
- Post-op care (tele, CXR, IV abx)
- In-Office wound check in 5-7 days
- Initiate Cardizem drip for rate control
- Resume IV heparin 6AM tomorrow
- Eventual consideration for cardioversion
Did not cardiovert today given that patient is planned for TAVR in 3 days and want to make sure she tolerates the procedure with no significant bleeding complications prior to performing CV
May benefit from antiarrhythmic drug therapy but again have held off for now pending results of TAVR
- Right femoral transvenous pacing wire was removed and right femoral venous sheath also removed
Discussed today's results with her daughter, Alina
Copy to: Dr Be ([facility])
--- NOTE | 2024-05-12 12:53 | PTCARENOTE ---
report given to Linette in EP lab.
--- NOTE | 2024-05-12 13:05 | PTCARENOTE ---
heparin gtt placed on hold
--- NOTE | 2024-05-12 13:23 | CM ---
Reviewed chart. Mrs. Chen was transferred to CVICU. Met with Mrs. Chen to review discharge plans. She states she is feeling better and is scheduled to have PPM insertion today. She also may go for a TAVR later this week. She states prior to
admission she resides with her spouse in a one story home with five steps to enter. She states her daughter resides nearby and is supportive. She states prior to admission she was independent with ambulation and adls. She states she does not have
any DME in the home. She states she has a prescription plan and uses [facility]. Will need to see her current functional level to see if she will have any skilled care needs. Medical work-up in progress. The discharge plan is to return home
with her spouse when medically stable.
--- NOTE | 2024-05-12 13:41 | PTCARENOTE ---
pt sent to [facility]
--- NOTE | 2024-05-12 16:03 | W.PN.HOSP.TC ---
Today's Communication/Plan
-
Pacemaker today
Plan for TAVR on 05/15
Continue IV diltiazem and IV heparin at cardiology's discretion
Assessment / Plan
Assessment / Plan
#In Hospital Cardiac Arrest
#Bradycardia
-Patient had progressive bradycardia followed by pulseless event, ROSC achieved subsequently
-Unclear etiology though suspected to be related to critical aortic stenosis
-Status post transvenous pacing performed urgently on 05/11/2024
-Status post permanent pacemaker placed on 05/12/2024 with EP
-Currently hemodynamically stable, on 2 L oxygen via NC
-Continue to monitor on telemetry
#Critical aortic stenosis
-Most recent TTE with peak/mean gradients of 100/60 mmHg respectively.
-Echocardiogram without evidence of LF�LG disease, LVEF preserved
-Planning for TAVR on 05/15/2024 while here
-Monitor hemodynamics closely
-BP goal of normotension
#SVT
-Tracings here most consistent with AF/AFL with RVR
-Developed bradycardic cardiac arrest while on diltiazem drip
-Now s/p PPM, resumed on IV diltiazem drip and IV heparin drip
-Planning for cardioversion versus antiarrhythmic if remains in SVT through TAVR
-Plan to transition to oral regimen following procedures
-Continue on telemetry as above
#Nonischemic myocardial injury
-Secondary to critical aortic stenosis
-Troponin trend not consistent with ACS
#Hypertension
-No known history of hypertensive systemic disease
-Home regimen includes amlodipine and enalapril
-Blood pressure currently well-controlled
#Elevated LFTs
-Possibly related to cardiac arrest, malperfusion
-Have started to downtrend, AST and ALT remain <2 X UNL
-Will trend LFTs daily, avoid hepatotoxic agents as possible
#HLD
-No previous history of ASCVD
-Home medications include moderate intensity statin
#Leukocytosis
-Unclear etiology, currently downtrending
-No fevers or obvious signs of infections while here
-Is on budesonide at home which may be related
#H/O colitis
-Home medications include budesonide
-Suspect UC versus Crohn's disease
-No signs of flare at this time
DVT prophylaxis: Heparin drip
Diet: Low-cholesterol
CODE STATUS: Full code
Anticipated Discharge: > 48 hours
Subjective/Interval History
-
Date of Service: May 12, 2024
Seen and examined at the bedside. Yesterday afternoon had cardiac arrest following bradycardia while on diltiazem drip. ROSC was achieved. No further acute events after transfer to CVICU
As of this morning she states she feels well, and is 'glad to be here'. Has some mild pains secondary to chest compressions, described as aches
She denies any acute complaints. Denies chest tightness, dyspnea, lightheadedness, palpitations today
Objective Data
-
Labs:
Laboratory Results
05/12/24 05/12/24
06:22 13:20
WBC 12.5 H
Hgb 10.6 L
Hct 32.9 L
Plt Count 297
APTT 124.9 H Pending
Sodium 137
Potassium 4.2
Chloride 104
Carbon Dioxide 23
BUN 20 H
Creatinine 0.7
Glucose 141 H
Calcium 8.7
Total Bilirubin 0.5
AST 39 H
ALT 64 H
Alkaline Phosphatase 86
Vital Signs:
Vital Signs
Temp Pulse Resp BP Pulse Ox
98.2 F 140 18 117/82 97
05/12/24 11:33 05/12/24 11:33 05/12/24 11:33 05/12/24 11:33 05/12/24 11:33
I&O
05/11/24 05/12/24 05/13/24
06:59 06:59 06:59
Intake Total 1516.5 / 1516.5 667.5 / 667.5
Output Total 800 / 800 200 / 200
Balance 716.5 / 716.5 467.5 / 467.5
Review of Systems
-
History Source: Patient
All other systems: Reviewed and negative
Physical Exam
-
General: Well Developed, Well Nourished, No Apparent Distress and Comfortable
HEENT: Normocephalic, Atraumatic, Moist Mucous Membranes and Anicteric
Respiratory: Clear to Auscultation, Non Labored Respirations and Accessory Resp Muscle Use
Cardiac: Regular Rhythm, S1/S2 and Murmur (2/6 LETITIA with delayed carotid upstroke); Negative Rub, JVD or Gallop
GI: Soft, Nontender, Nondistended and Normal Bowel Sounds
Musculoskeletal: No Clubbing, No Cyanosis and No Edema
Skin: Warm and Dry; Negative Rash
Neuro: AO x 3 and Nonfocal/Grossly Intact; Negative Tremors
Psych: Calm
Data Reviewed
-
Labs: Labs Reviewed by me, Discussed with Physician (CVardiology) and Discussed with Patient
[2024-05-12] MEDS: CARDIZEM 125 IV (16:30)
[2024-05-12] MEDS: BENADRYL 50 MG IV (16:31)
[2024-05-12] MEDS: SOLU-CORTEF 200 MG IV (16:31)
--- NOTE | 2024-05-12 16:42 | PTCARENOTE ---
Received pt s/p PPM, dressing to left CW intact, sling in place. EKG obtained as ordered. Sheath removed in the lab, dressing to right groin intact. + peripheral pulses. Pt denies pain. Cardizem initiated at 16:30 as ordered for HR 130's. Plan of
care reviewed w the pt and questions encouraged.
[2024-05-12] MEDS: CARDIZEM 5 MG IV (18:35)
--- NOTE | 2024-05-12 20:00 | PTCARENOTE ---
Assumed care of the patient at 1900. Patient AOx3, anxious, able to make needs known. Atrial tachyarrhythmia on telemetry, rates 110-130's, on Cardizem gtt @ 15, murmur auscultated, irregular apical pulse, no edema, + pulses throughout, permanent
pacemaker present. 100% paced beats noted to begin approx 20:18. Lungs dim at the bases, on 2LNC satting 97%. Abdomen SNT, ate her full dinner, no n/v, passing flatus, +BS. Purewick in place d/t limited mobility OOB from L arm sling, voiding without
difficulty. LCW pressure dressing and aquacell intact. L sling placement verified, patient teaching regarding limb restriction reinforced. R groin access site CDI, soft, no bleeding or hematoma noted; farrah area blanchable red. PIVx2 in the R forearm
and LAC. See nursing work list for further intervention details.
[2024-05-12] MEDS: ANCEF 5 IV (20:22)
[2024-05-12] MEDS: MAGNESIUM SULFATE 100 IV (20:30)
[2024-05-12] MEDS: LIPITOR 10 MG PO (21:19)
[2024-05-13] VITALS (8 sets, daily range): BP systolic 108–136; BP diastolic 58–70; BMI 25.8
--- NOTE | 2024-05-13 | PTCARENOTE ---
Assessment unchanged, patient sleeping between care, using call mauro appropriately, no acute issues. VSS.
[2024-05-13] MEDS: ANCEF 5 IV (03:32)
[2024-05-13 03:54] LABS: Hematocrit 30.2 % (37.0-47.0); Hemoglobin 9.6 g/dL (12.0-16.0); Mean Corp Hgb Conc. 31.8 g/dL (33.0-37.0); Mean Corpuscular Hgb 26.4 pg (27.0-31.0); Mean Corpuscular Volume 83.2 fL (81.0-99.0); Mean Platelet Volume 10.1 fL (7.4-10.4); Platelet Count 235 10^3/uL (130-400); Red Blood Cell Count 3.63 10^6/uL (4.20-5.40); Red Cell Dist. Width 14.9 % (11.5-14.5); White Blood Cell Count 12.7 10^3/uL (4.8-10.8)
--- NOTE | 2024-05-13 04:45 | PTCARENOTE ---
Assessment unchanged VSS patient sleeping between care.
[2024-05-13 05:41] LABS: ALT (SGPT) 29 U/L (0-35); AST (SGOT) 18 U/L (14-36); Albumin 2.2 g/dl (3.5-5.0); Alkaline Phosphatase 62 U/L (38-126); Blood Urea Nitrogen 14 mg/dl (7-17); Calcium 6.3 mg/dl (8.4-10.2); Carbon Dioxide 21 mmol/L (22-30); Chloride 112 mmol/L (98-107); Estimated Creatinine Clearance 60 ml/min; Glucose 168 mg/dl (70-99); Magnesium 1.6 mg/dl (1.6-2.3); Potassium 3.6 mmol/L (3.5-5.1); Sodium 138 mmol/L (135-145); Total Bilirubin 0.1 mg/dl (0.2-1.3); Total Protein 4.3 g/dl (6.3-8.2); eGFR > 60.00
[2024-05-13 06:38] LABS: Hematocrit 31.5 % (37.0-47.0); Hemoglobin 10.1 g/dL (12.0-16.0); Mean Corp Hgb Conc. 32.1 g/dL (33.0-37.0); Mean Corpuscular Hgb 26.4 pg (27.0-31.0); Mean Corpuscular Volume 82.5 fL (81.0-99.0); Mean Platelet Volume 10.9 fL (7.4-10.4); Platelet Count 253 10^3/uL (130-400); Red Blood Cell Count 3.82 10^6/uL (4.20-5.40); Red Cell Dist. Width 15.1 % (11.5-14.5); White Blood Cell Count 13.8 10^3/uL (4.8-10.8)
[2024-05-13 07:04] LABS: Blood Urea Nitrogen 18 mg/dl (7-17); Calcium 8.5 mg/dl (8.4-10.2); Carbon Dioxide 26 mmol/L (22-30); Chloride 104 mmol/L (98-107); Estimated Creatinine Clearance 51 ml/min; Glucose 180 mg/dl (70-99); Potassium 4.4 mmol/L (3.5-5.1); Sodium 136 mmol/L (135-145); eGFR > 60.00
--- NOTE | 2024-05-13 08:30 | PTCARENOTE ---
Assumed care of patient at 0700. Pt is awake, alert, and oriented. Pt assisted to bathroom to wash up. Pt remains V paced, HR 80's-90's. BP 136/59 MAP 81. Pulse oximetry 92% on room air. Pt tolerating PO diet. Voided in bathroom without issue. Left
chest wall with pressure dressing in place. Right groin site dressing intact. Pt is on Heparin gtt, contacted provider to confirm order. 0815 Cardizem gtt off.
--- NOTE | 2024-05-13 11:03 | W.PN.CARDCBS ---
Addendum entered and electronically signed by Munir Foreman MD 05/13/24 13:12:
I saw and examined the patient.
The [facility] Associate's note was reviewed and I agree with the note.
Comment:
GEN: No distress, awake, Ox3
HEENT: supple, anicteric, mmm
LUNGS: CTA, no wheezes/rales
CV: Reg, S1/S2, 05/12 syst LSB, no gallop
ABD: soft, BS+, NT/ND
EXT: No edema
NEURO: Gross non-focal
SKIN: sternotomy
Plan:
Doing well status post pacemaker. Stop Cardizem and start Toprol 25 mg daily.
Will also start amiodarone if she is back in sinus rhythm. Continue IV heparin.
Hg stable at 10.1
Plan is for TAVR .
Original Note:
Today's Communication / Plan
-
s/p PPM 05/12
stop IV cardizem. start toprol 25mg daily. consider addition of amiodarone as back in SR
IV heparin
TAVR 05/15
Impression / Plan
-
Primary Structural Iron Worker: Dr. Be of [facility]
Assessment:
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
Presentation with CP, SOB
Suspected atrial flutter with RVR however appears more like afib on tele in ER at present
Leukocytosis
Elevated troponin, suspected nonischemic myocardial injury in setting of rapid AF and severe
Severe , planned for TAVR 05/15/24
History of syncope
HTN
HLD
Hypothyroidism
History of JEAN/oophorectomy
IV contrast allergy
ECHO 04/18/24 at [facility]: EF 54%, severe with peak/mean gradients 98/60 mmHg, NIKKI 0.33 cm�, trace to mild AI, moderate MAC, mild to moderate MR
Echo 05/09/2024: EF 50 to 55%, mild mitral stenosis with a mean gradient of 6 point mercury, severe aortic stenosis with mean gradient of 73 mmHg aortic valve area 0.5 cm�, mild AI, PA systolic 37 mmHg
Plan:
-she initially presented with CP, SOB and was in rapid afib, new diagnosis
-she then had bradycardia arrhythmia followed by arrest with brief CPR with ROSC 05/11/24. she received temp wire followed by permanent Medtronic DC PPM 05/12/24.
-CXR without PTX
-currently in asensed vpaced rhythm on tele, appears to have spontaneously converted to SR ~20:30 05/12. IV cardizem gtt stopped. will add toprol 25mg daily and would consider for AAD therapy with amiodarone for now as back in SR.
-pressure dressing removed today and site without edema, erythema. dressing c/d/i
-hgb stable at 10.1. IV heparin resumed this AM. eventual transition to DOAC post procedure
-For TAVR on 05/15/2024
-d/w nursing. d/w patient's daughter Alina via telephone and updated. d/w CT surgery [employer]ANT MANAGER/PA
Progress Note - Structural Iron Worker
Subjective
Date of Service: May 13, 2024
feeling well. eagerly awaiting TAVR on
Objective
Labs:
05/13/24 06:20
05/13/24 06:20
Labs
Hgb 10.1 g/dL (12.0-16.0) L 05/13/24 06:20
Hct 31.5 % (37.0-47.0) L 05/13/24 06:20
Plt Count 253 10^3/uL (130-400) 05/13/24 06:20
PT 13.3 Sec (11.4-14.6) 05/11/24 16:43
INR 0.98 05/11/24 16:43
APTT Cancelled 05/12/24 13:20
Sodium 136 mmol/L (135-145) 05/13/24 06:20
Potassium 4.4 mmol/L (3.5-5.1) 05/13/24 06:20
BUN 18 mg/dl (7-17) H 05/13/24 06:20
Creatinine 0.7 mg/dL (0.6-1.0) 05/13/24 06:20
Glucose 180 mg/dl (70-99) H 05/13/24 06:20
Troponins
05/11/24
16:44
Troponin I 0.316 H*
Vital Signs and I&O:
Vital Signs
Temp Pulse Resp BP Pulse Ox
98 F 88 18 136/59 92
05/13/24 08:09 05/13/24 10:00 05/13/24 08:09 05/13/24 07:35 05/13/24 08:30
Vital Signs
Temp Pulse Resp BP Pulse Ox
98 F 88 18 136/59 92
05/13/24 08:09 05/13/24 10:00 05/13/24 08:09 05/13/24 07:35 05/13/24 08:30
Intake & Output
05/11/24 05/12/24 05/13/24 05/14/24
07:59 07:59 07:59 07:59
Intake Total 1516.5 / 1516.5 667.5 / 681.0 128.5 / 144.5 16.0 / 16.0
Output Total 1000 / 1000 900 / 900
Balance 516.5 / 516.5 667.5 / 681.0 -771.5 / -755.5 16.0 / 16.0
Physical Exam
Physical Exam
GEN: No distress, awake, alert, oriented x3. sitting in chair
HEENT: supple, anicteric, mmm, eomi
LUNGS: CTA B/L, no wheezes/rales
CV: Reg, S1/S2, 2/6 syst LSB
ABD: soft, BS+, NT/ND
EXT: No cyanosis, clubbing, edema
NEURO: Gross non-focal
SKIN: Warm, pink, dry. No rash. L chest dressing c/d/i
--- NOTE | 2024-05-13 12:45 | PTCARENOTE ---
Pt remains V paced with HR 80's. BP 128/69 MAP 86. Pulse oximetry 95% on room air. Pt remains OOB in chair. Remains on Heparin gtt per order.
--- NOTE | 2024-05-13 12:50 | CM ---
Reviewed chart. Met with Mrs. Chen to review discharge plans. She states she is feeling much better and is scheduled for a TAVR later this week. She states he spouse will be home to assist in her care if needed. Also her daughter resides nearby
and she will check on her. Prior to admission she reisdes with his spouse in a one story home with five steps to enter. Prior to admission she was independent with ambulation and adls. She has a prescription plan and uses [facility]. Medical
work-up in progress. The discharge plan is to return home with her spouse and a home visit by the Transitional Care Nurse when medically stable.
[2024-05-13] MEDS: TOPROL XL 25 MG PO (12:57)
[2024-05-13] MEDS: PACERONE 200 MG PO ×3 (12:57→20:57)
[2024-05-13] MEDS: NORVASC 5 MG PO (12:57)
[2024-05-13] MEDS: HEPARIN 25000 UNITS/250 ML IV (13:01)
[2024-05-13] MEDS: TYLENOL 650 MG PO ×2 (13:03→20:59)
--- NOTE | 2024-05-13 13:18 | W.PN.HOSP.TC ---
Today's Communication/Plan
-
Transition to oral beta-azalia with amiodarone
Continue IV heparin drip with plan for eventual DOAC
TAVR plan for 05/15
Downgraded to IVU
Assessment / Plan
Assessment / Plan
#Critical aortic stenosis
-Most recent TTE with peak/mean gradients of 100/60 mmHg respectively.
-Echocardiogram without evidence of LF�LG disease, LVEF preserved
-Planning for TAVR on 05/15/[address] surgery
-Monitor hemodynamics closely, BP goal of normotension
-TAVR workup per CT surgery
#Cardiac Arrest
#Third-degree AV block s/p PPM
-Patient had progressive bradycardia followed by pulseless event, ROSC achieved subsequently
-Unclear etiology though suspected to be related to critical aortic stenosis
-Status post transvenous pacing performed urgently on 05/11/2024
-Status post permanent pacemaker placed on 05/12/2024 with EP
-Currently hemodynamically stable, on RA
-Continue to monitor on telemetry
#AF/AFL
-Tracings here most consistent with new onset AF/AFL with RVR
-Developed bradycardic cardiac arrest while on diltiazem drip
-Now s/p PPM and IV diltiazem drip; started on oral metoprolol
-Converted to sinus rhythm, started on amiodarone today
-Continue with metoprolol, amiodarone, heparin drip
-May need to consider DCCV versus CTI ablation if recurrent
-Monitor on telemetry
#Nonischemic myocardial injury
-Secondary to critical aortic stenosis
-Troponin trend not consistent with ACS
#Hypertension
-No known history of hypertensive systemic disease
-Home regimen includes amlodipine and enalapril
-Blood pressure currently well-controlled
#HLD
-No previous history of ASCVD
-Home medications include moderate intensity statin
#Leukocytosis
-Unclear etiology though possibly from chronic steroid, WBC stable
-No fevers or obvious signs of infections while here
#H/O colitis
-Home medications include budesonide
-Suspect UC versus Crohn's disease
-No signs of flare at this time
#Elevated LFTs
-Possibly related to cardiac arrest, malperfusion
-Resolved
DVT prophylaxis: Heparin drip
Diet: Low-cholesterol
CODE STATUS: Full code
Anticipated Discharge: > 48 hours
Subjective/Interval History
-
Date of Service: May 13, 2024
Seen and examined while sitting in the chair. No acute events reported overnight. AFVSS this morning
She states she feels well, is very happy that she was able to get out of bed and can use the restroom by herself.
Denies any acute complaints.
Objective Data
-
Labs:
Laboratory Results
05/13/24 05/13/24 05/13/24
03:24 06:20 13:13
WBC 12.7 H 13.8 H
Hgb 9.6 L 10.1 L
Hct 30.2 L 31.5 L
Plt Count 235 D 253
APTT Pending
Sodium 138 136
Potassium 3.6 4.4
Chloride 112 H 104
Carbon Dioxide 21 L 26
BUN 14 18 H
Creatinine 0.6 0.7
Glucose 168 H 180 H
Calcium 6.3 L* D 8.5 D
Total Bilirubin 0.1 L
AST 18
ALT 29
Alkaline Phosphatase 62
Vital Signs:
Vital Signs
Temp Pulse Resp BP Pulse Ox
98 F 88 18 136/59 92
05/13/24 08:09 05/13/24 10:00 05/13/24 08:09 05/13/24 07:35 05/13/24 08:30
I&O
05/12/24 05/13/24 05/14/24
06:59 06:59 06:59
Intake Total 667.5 / 667.5 128.5 / 128.5 16.0 / 16.0
Output Total 200 / 200 900 / 900
Balance 467.5 / 467.5 -771.5 / -771.5 16.0 / 16.0
Review of Systems
-
History Source: Patient
All other systems: Reviewed and negative
Physical Exam
-
General: Well Developed, Well Nourished, No Apparent Distress and Comfortable
HEENT: Normocephalic, Atraumatic, Moist Mucous Membranes and Anicteric
Respiratory: Clear to Auscultation and Non Labored Respirations; Negative Wheezes, Rales or Rhonchi
Cardiac: Regular Rhythm, Murmur and Other (2/6 LETITIA, normal S1 with reduced S2, delayed carotid upstroke); Negative Rub or Gallop
GI: Soft, Nontender, Nondistended and Normal Bowel Sounds
Musculoskeletal: No Clubbing, No Cyanosis, No Edema, Normal Gait & Station and Other
Skin: Warm, Dry, Normal Turgor and Other (Palpable pulses peripherally); Negative Rash
Neuro: AO x 3 and Nonfocal/Grossly Intact
Psych: Calm
Data Reviewed
-
Labs: Labs Reviewed by me and Discussed with Patient
[2024-05-13 13:35] LABS: APTT 71.7 Sec (23.4-35.0)
[2024-05-13] MEDS: SENNA SYRUP 8.8 MG PO (15:20)
--- NOTE | 2024-05-13 16:03 | PTCARENOTE ---
PTT assessed, Heparin gtt increased per protocol. Pt remains V paced, HR 80's-90's. BP 114/70 MAP 79. Pulse oximetry 96% on room air. Pt ambulating in room.
--- NOTE | 2024-05-13 20:00 | PTCARENOTE ---
Received pt from [facility]. pt resting comfortably in bed. pt is s/p PPM placement and awaiting a TAVR on 05/15. pt is V paced on monitor via PPM, VSS. heart sounds audible, radial and DP pulses palpable, trace pedal edema noted, PPM set DDDR 60-130.
lungs clear, spo2 97% on RA. +BS x4 quadrants, abdomen, soft non tender. pt voiding clear yellow urine. surgical sites maintained. PIV maintained. heparin gtt infusing, see protocol. call mauro in place. will continue to monitor.
[2024-05-13] MEDS: LIPITOR 10 MG PO (20:57)
[2024-05-13 21:04] LABS: Glucose - Point of Care 188 mg/dl (70-99)
[2024-05-14] VITALS (28 sets, daily range): BP systolic 75–125; BP diastolic 45–83; BMI 26.1
[2024-05-14 01:48] LABS: % Basophils 0.4 % (0-2); % Eosinophils 2.7 % (0-6); % Immature Granulocytes 0.7 % (0-0.5); % Lymphocytes 19.3 % (20.5-51.1); % Monocytes 4.5 % (1.7-9.3); % Neutrophils 72.4 % (42.2-75.2); Absolute Basophils 0.1 10^3/uL (0-0.2); Absolute Eosinophils 0.4 10^3/uL (0-0.7); Absolute Immature Granulocytes 0.1 10^3/uL (0-0.05); Absolute Lymphocytes 2.9 10^3/uL (1.2-3.4); Absolute Monocytes 0.7 10^3/uL (0.1-0.6); Absolute Neutrophils 10.9 10^3/uL (1.4-6.5); Hematocrit 32.5 % (37.0-47.0); Hemoglobin 10.6 g/dL (12.0-16.0); Mean Corp Hgb Conc. 32.6 g/dL (33.0-37.0); Mean Corpuscular Hgb 26.7 pg (27.0-31.0); Mean Corpuscular Volume 81.9 fL (81.0-99.0); Nucleated Red Blood Cells % 0 %; Platelet Count 241 10^3/uL (130-400); Red Blood Cell Count 3.97 10^6/uL (4.20-5.40); Red Cell Dist. Width 14.8 % (11.5-14.5)
[2024-05-14 02:04] LABS: APTT 123.6 Sec (23.4-35.0)
[2024-05-14 02:30] LABS: Blood Urea Nitrogen 25 mg/dl (7-17); Calcium 9.3 mg/dl (8.4-10.2); Carbon Dioxide 22 mmol/L (22-30); Chloride 102 mmol/L (98-107); Estimated Creatinine Clearance 40 ml/min; Glucose 143 mg/dl (70-99); Potassium 4.6 mmol/L (3.5-5.1); Sodium 135 mmol/L (135-145); eGFR > 60.00
[2024-05-14] MEDS: TORADOL 15 MG IV ×3 (02:33→23:29)
--- NOTE | 2024-05-14 03:00 | PTCARENOTE ---
pt complains of soreness 12/14 in back, chest, and rib cage, likely from CPR performed on 05/11. reached out to [facility] contractor for Toradol order. verbal order taken and med administered.
[2024-05-14] MEDS: HEPARIN 25000 UNITS/250 ML IV ×2 (04:08→16:19)
[2024-05-14 08:15] LABS: Glucose - Point of Care 188 mg/dl (70-99)
[2024-05-14] MEDS: TYLENOL 650 MG PO ×3 (09:28→20:02)
[2024-05-14] MEDS: PACERONE 200 MG PO ×3 (09:29→22:54)
[2024-05-14] MEDS: TOPROL XL 25 MG PO (09:29)
[2024-05-14] MEDS: NOVOLOG FLEXPEN-MODERATE RESISTANCE 1 UNITS SC (09:29)
--- NOTE | 2024-05-14 09:30 | PTCARENOTE ---
Assumed care of patient at 0700. Pt is awake, alert, and oriented. Pt with minimal complaints of back and rib pain, PRN Tylenol administered. Pt remains V paced with HR 80's. BP 113/65 MAP 81. Pulse oximetry 96% on room air. Voiding in bathroom
without issue. Right groin puncture intact. Palpable pulses throughout. Pt remains on heparin gtt per order.
[2024-05-14 10:09] LABS: APTT 101.8 Sec (23.4-35.0)
--- NOTE | 2024-05-14 10:52 | CM ---
Reviewed chart. Met with Mrs. Chen to review discharge plans. She states is schedule to have a TAVR on 05/15/24. She states she is feeling okay. Telephone call to [facility], to check on her co-pay for Eliquis 5 mg po bid. Her co-pay would
be $15.00 a month. Placed the one month free coupon in her red discharge folder. Prior to admission she resides with her spouse in a one story home with five steps to enter. Her daughter resides nearby and is supportive. Prior to admission she
was independent with ambulation and adls. She does not have any DME in the home. She has a prescription plan and [facility] Prescription plan. Medical work-up in progress. The discharge plan is to return home with her spouse and a home visit by
Transitional Care Nurse when medically stable.
[2024-05-14] MEDS: NOVOLOG FLEXPEN-MODERATE RESISTANCE 3 UNITS SC ×2 (12:00→18:26)
[2024-05-14 12:03] LABS: Glucose - Point of Care 215 mg/dl (70-99)
--- NOTE | 2024-05-14 12:19 | PTCARENOTE ---
Pt in bathroom, reported to feel weak and slightly dizzy. Pt assisted back to bed. BP 94/[address] Long and cardiology JOZEF Rivas made aware. Holding 1200 Norvasc dose at this time.
[2024-05-14] MEDS: NORVASC PO (12:21)
--- NOTE | 2024-05-14 13:15 | W.PN.CARDCBS ---
Addendum entered and electronically signed by Mildred Berkowitz MD 05/14/24 14:42:
I saw and examined the patient.
The Sports Medicine Trainer's note was reviewed and I agree with the note.
Comment: Patient tells me she had an episode of lightheadedness when she was standing up in the bathroom when blood pressures were noted to be in mid 90s systolic. When she came back to bed her symptoms have now resolved and she continues to feel
well. She denies any chest discomfort or shortness of breath.
On exam patient is well-appearing, no acute distress, awake, alert and oriented x 3, regular rate, 2 out of 6 systolic ejection murmur, loudest at right upper sternal border, late peaking, soft S2, lungs are clear to auscultation bilaterally, no
rubs or gallops, abdomen is soft, nontender, nondistended with active bowel sounds, warm extremities
Vital signs and lab work reviewed. No significant events on telemetry noted.
Recommendations:
1. Plan for TAVR tomorrow morning. Continue heparin drip for now with plan to hold on the way to TAVR tomorrow morning.
2. We will plan on giving full dose aspirin today with 81 mg daily starting tomorrow morning.
3. With borderline low blood pressures, agree with holding Norvasc for now. Patient will be continued for now on Amio to maintain sinus rhythm and Toprol-XL.
Mildred Berkowitz MD, [facility], [place]
Original Note:
Today's Communication / Plan
-
for TAVR 05/15
holding norvasc
continue toprol, amio, IV heparin
Impression / Plan
-
Primary Senior Software Qa Engineer: Dr. Be of [facility]
Assessment:
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
Presentation with CP, SOB
Suspected atrial flutter with RVR however appears more like afib on tele in ER at present
Leukocytosis
Elevated troponin, suspected nonischemic myocardial injury in setting of rapid AF and severe
Severe , planned for TAVR 05/15/24
History of syncope
HTN
HLD
Hypothyroidism
History of JEAN/oophorectomy
IV contrast allergy
ECHO 04/18/24 at [facility]: EF 54%, severe with peak/mean gradients 98/60 mmHg, NIKKI 0.33 cm�, trace to mild AI, moderate MAC, mild to moderate MR
Echo 05/09/2024: EF 50 to 55%, mild mitral stenosis with a mean gradient of 6 point mercury, severe aortic stenosis with mean gradient of 73 mmHg aortic valve area 0.5 cm�, mild AI, PA systolic 37 mmHg
Plan:
-she initially presented with CP, SOB and was in rapid afib, new diagnosis
-she then had bradycardia arrhythmia followed by arrest with brief CPR with ROSC 05/11/24. she received temp wire followed by permanent Medtronic DC PPM 05/12/24.
-currently in asensed vpaced rhythm on tele, spontaneously converted to SR ~20:30 05/12. IV cardizem gtt stopped. continue toprol 25mg daily and amiodarone 200mg TID
-chest dressing remains c/d/i
-with some hypotension earlier, so OP norvasc placed on hold
-continue IV heparin. eventual transition to DOAC post procedure
-For TAVR on 05/15/2024
-d/w nursing.
Progress Note - Senior Software Qa Engineer
Subjective
Date of Service: May 14, 2024
reported some dizziness with ambulation to bathroom earlier associated with mild hypotension, now improved
Objective
Labs:
05/14/24 01:25
05/14/24 01:25
Labs
Hgb 10.6 g/dL (12.0-16.0) L 05/14/24 01:25
Hct 32.5 % (37.0-47.0) L 05/14/24 01:25
Plt Count 241 10^3/uL (130-400) 05/14/24 01:25
PT 13.3 Sec (11.4-14.6) 05/11/24 16:43
INR 0.98 05/11/24 16:43
APTT Cancelled 05/14/24 12:00
Sodium 135 mmol/L (135-145) 05/14/24 01:25
Potassium 4.6 mmol/L (3.5-5.1) 05/14/24 01:25
BUN 25 mg/dl (7-17) H 05/14/24 01:25
Creatinine 0.9 mg/dL (0.6-1.0) 05/14/24:
Glucose 143 mg/dl (70-99) H 05/14/24 01:25
Troponins
05/11/24
16:44
Troponin I 0.316 H*
Vital Signs and I&O:
Vital Signs
Temp Pulse Resp BP Pulse Ox
98.4 F 82 18 94/57 98
05/14/24 12:08 05/14/24 12:08 05/14/24 12:08 05/14/24 11:53 05/14/24 12:14
Vital Signs
Temp Pulse Resp BP Pulse Ox
98.4 F 82 18 94/57 98
05/14/24 12:08 05/14/24 12:08 05/14/24 12:08 05/14/24 11:53 05/14/24 12:14
Intake & Output
05/12/24 05/13/24 05/14/24 05/15/24
07:59 07:59 07:59 07:59
Intake Total 667.5 / 681.0 144.5 / 160.5 156.0 / 183.0 81.0 / 81.0
Output Total 900 / 900 200 / 200
Balance 667.5 / 681.0 -755.5 / -739.5 -44.0 / -17.0 81.0 / 81.0
Physical Exam
Physical Exam
GEN: No distress, awake, alert, oriented x3.
HEENT: supple, anicteric, mmm, eomi
LUNGS: CTA B/L, no wheezes/rales
CV: Reg, S1/S2, 2/6 syst LSB
ABD: soft, BS+, NT/ND
EXT: No cyanosis, clubbing, edema
NEURO: Gross non-focal
SKIN: Warm, pink, dry. No rash. L chest dressing c/d/i
[2024-05-14] MEDS: ASPIRIN 325 MG PO (14:42)
--- NOTE | 2024-05-14 15:27 | W.PN.HOSP.TC ---
Today's Communication/Plan
-
Hold amlodipine
N.p.o. after midnight for TAVR tomorrow
Continue IV heparin drip
Status post full dose aspirin given by cardiology
Assessment / Plan
Assessment / Plan
#Critical aortic stenosis
-Most recent TTE with peak/mean gradients of 100/60 mmHg respectively.
-Echocardiogram without evidence of LF�LG disease, LVEF preserved
-Planning for TAVR on 05/15/[address] surgery
-Monitor hemodynamics closely, BP goal of normotension
-TAVR workup per CT surgery
-N.p.o. after midnight
#Cardiac Arrest
#Third-degree AV block s/p PPM
-Patient had progressive bradycardia followed by pulseless event, ROSC achieved subsequently
-Unclear etiology though suspected to be related to critical aortic stenosis
-Status post transvenous pacing performed urgently on 05/11/2024
-Status post permanent pacemaker placed on 05/12/2024 with EP
-Currently hemodynamically stable, on RA
-Continue to monitor on telemetry
#AF/AFL
-Tracings here most consistent with new onset AF/AFL with RVR
-Developed bradycardic cardiac arrest while on diltiazem drip
-Now s/p PPM and IV diltiazem drip; started on oral metoprolol
-Converted to sinus rhythm, started on amiodarone today
-Continue with metoprolol, amiodarone, heparin drip
-May need to consider DCCV versus CTI ablation if recurrent
-Monitor on telemetry
#Nonischemic myocardial injury
-Secondary to critical aortic stenosis
-Troponin trend not consistent with ACS
#Hypertension
-No known history of hypertensive systemic disease
-Home regimen includes amlodipine and enalapril
-Blood pressure borderline soft today, holding amlodipine
#HLD
-No previous history of ASCVD
-Home medications include moderate intensity statin
#Leukocytosis
-Unclear etiology though possibly from chronic steroid, WBC stable
-No fevers or obvious signs of infections while here
#H/O colitis
-Home medications include budesonide
-Suspect UC versus Crohn's disease
-No signs of flare at this time
#Elevated LFTs
-Possibly related to cardiac arrest, malperfusion
-Resolved
DVT prophylaxis: Heparin drip
Diet: Low-cholesterol
CODE STATUS: Full code
Anticipated Discharge: > 48 hours
Subjective/Interval History
-
Date of Service: May 14, 2024
Seen and examined at the bedside. No acute events reported overnight. AFVSS as of this morning
States she feels well and is ready for TAVR tomorrow. Blood pressure became soft over the course of the morning, Norvasc held
Denies any acute complaints
Objective Data
-
Labs:
Laboratory Results
05/14/24 05/14/24 05/14/24
09:49 12:00 16:30
APTT 101.8 H Cancelled Pending
Vital Signs:
Vital Signs
Temp Pulse Resp BP Pulse Ox
98.4 F 76 18 93/62 98
05/14/24 12:08 05/14/24 13:38 05/14/24 12:08 05/14/24 13:38 05/14/24 12:14
I&O
05/13/24 05/14/24 05/15/24
06:59 06:59 06:59
Intake Total 128.5 / 144.5 172.0 / 172.0 94.5 / 94.5
Output Total 900 / 900 200 / 200
Balance -771.5 / -755.5 -28.0 / -28.0 94.5 / 94.5
Review of Systems
-
History Source: Patient
All other systems: Reviewed and negative
Physical Exam
-
General: Well Developed, Well Nourished, No Apparent Distress and Comfortable
HEENT: Normocephalic, Atraumatic, Moist Mucous Membranes and Anicteric
Respiratory: Clear to Auscultation and Non Labored Respirations
Cardiac: Regular Rhythm, S1/S2 (Reduced S2) and Murmur; Negative Rub or Gallop
GI: Soft, Nontender, Nondistended and Normal Bowel Sounds
Musculoskeletal: No Clubbing, No Cyanosis and No Edema
Skin: Warm, Dry and Normal Turgor; Negative Rash
Neuro: AO x 3 and Nonfocal/Grossly Intact
Psych: Calm
Data Reviewed
-
Labs: Labs Reviewed by me and Discussed with Patient
[2024-05-14] MEDS: MAALOX 30 ML PO (16:13)
--- NOTE | 2024-05-14 16:58 | PTCARENOTE ---
Pt feeling tired this afternoon, BP 84/[address] Long notified. BP monitored, now 95/83 MAP 90. Pt with complaints of indigestion, PRN Maalox administered. Pt with complaints of back pain, one time dose Toradol administered.
[2024-05-14 17:05] LABS: APTT 100.4 Sec (23.4-35.0)
[2024-05-14 18:25] LABS: Glucose - Point of Care 212 mg/dl (70-99)
--- NOTE | 2024-05-14 20:00 | PTCARENOTE ---
Received pt from [employer]. pt resting in bed, complains of right shoulder pain and general soreness (likely from CPR from 05/11) 12/14, see MAR. pt is AAOx4. pt is V paced on monitor via PPM. SBP in 90s, care team aware. heart sounds audible, radial
and DP pulses palpable, trace CRISTOFER, PPM set to DDDR 60-130. lung sounds diminished throughout, spo2 96% on RA. + BS x4 quadrants, complained of gas and some nausea, care team aware, abdomen soft non tender. pt voiding clear yellow urine. surgical
sites maintained. PIV maintained. heparin infusing, following protocol. pt is scheduled for TAVR tomorrow and will be prepped tonight. call mauro within reach will continue to monitor.
[2024-05-14] MEDS: LIDOCAINE 4% PATCH 1 PATCH TOPICAL (20:03)
[2024-05-14] MEDS: DELTASONE 50 MG PO (20:07)
--- NOTE | 2024-05-14 21:00 | PTCARENOTE ---
pt continues to be hypotensive with symptoms of dizziness and nausea. CVPA aware and 250ml NS bolus ordered and given. will continue to monitor.
[2024-05-14 21:10] LABS: Glucose - Point of Care 208 mg/dl (70-99)
[2024-05-14] MEDS: LIPITOR 10 MG PO (22:54)
[2024-05-14] MEDS: ZOFRAN 4 MG IV (22:57)
[2024-05-15] VITALS (35 sets, daily range): BP systolic 79–161; BP diastolic 44–98; BMI 26.3
--- NOTE | 2024-05-15 | PTCARENOTE ---
pt assessment unchanged. V-paced on monitor. low BP but stable. pt was given zofran for ongoing nausea. pt was clipped and washed in preparation for TAVR tomorrow. new gown provided and sheets changed. call mauro within reach. will continue to
monitor.
[2024-05-15] MEDS: DELTASONE 50 MG PO ×2 (02:11→11:00)
[2024-05-15 02:49] LABS: % Basophils 0.2 % (0-2); % Eosinophils 0.1 % (0-6); % Immature Granulocytes 2.3 % (0-0.5); % Lymphocytes 6.6 % (20.5-51.1); % Monocytes 2.6 % (1.7-9.3); % Neutrophils 88.2 % (42.2-75.2); Absolute Immature Granulocytes 0.4 10^3/uL (0-0.05); Absolute Lymphocytes 1.2 10^3/uL (1.2-3.4); Absolute Monocytes 0.5 10^3/uL (0.1-0.6); Absolute Neutrophils 16.5 10^3/uL (1.4-6.5); Hematocrit 31.1 % (37.0-47.0); Mean Corp Hgb Conc. 32.2 g/dL (33.0-37.0); Mean Corpuscular Hgb 26.6 pg (27.0-31.0); Mean Corpuscular Volume 82.7 fL (81.0-99.0); Mean Platelet Volume 10.9 fL (7.4-10.4); Nucleated Red Blood Cells % 0 %; Platelet Count 242 10^3/uL (130-400); Red Blood Cell Count 3.76 10^6/uL (4.20-5.40); White Blood Cell Count 18.7 10^3/uL (4.8-10.8)
[2024-05-15 03:15] LABS: Blood Urea Nitrogen 34 mg/dl (7-17); Carbon Dioxide 16 mmol/L (22-30); Chloride 97 mmol/L (98-107); Estimated Creatinine Clearance 20 ml/min; Glucose 193 mg/dl (70-99); Potassium 5.9 mmol/L (3.5-5.1); Sodium 130 mmol/L (135-145); eGFR 27.78
[2024-05-15 03:19] LABS: APTT 154.4 Sec (23.4-35.0)
--- NOTE | 2024-05-15 03:56 | PTCARENOTE ---
Pt's PTT lab was 154.4, CVPA notified and heparin protocol followed. see work list. pt prepped and clipped, x2 CHG baths given, new gown and sheets. pt yet to void on this shift. pt bladder scanned for 66 mls of urine. will continue to monitor.
[2024-05-15 04:43] LABS: Venous Blood Gas B.E. -13.2 mmol/L (-4 to +4); Venous Blood Gas HCO3 13.6 mmol/L (22-27); Venous Blood Gas O2 Sat % 69.8 %; Venous Blood Gas pCO2 34 mmHg (35-48); Venous Blood Gas pH 7.21 (7.32-7.43); Venous Blood Gas pO2 51 mmHg (30-50)
[2024-05-15 05:27] LABS: Glucose - Point of Care 163 mg/dl (70-99)
[2024-05-15] MEDS: SODIUM BICARBONATE 100 MEQ IV (05:38)
[2024-05-15 05:40] LABS: Blood Urea Nitrogen 35 mg/dl (7-17); Calcium 9.3 mg/dl (8.4-10.2); Carbon Dioxide 11 mmol/L (22-30); Chloride 98 mmol/L (98-107); Estimated Creatinine Clearance 17 ml/min; Glucose 175 mg/dl (70-99); Potassium 7.1 mmol/L (3.5-5.1); Sodium 132 mmol/L (135-145); eGFR 23.09
[2024-05-15 05:45] LABS: B.E. -12.4 mmol/L; Ionized Calcium 1.13 mMOL/L (1.15-1.33); O2 Saturation % 98.1 % (94-98); PCO2 19 mmHg (32-35); PO2 111 mmHg (83-108); pH 7.37 (7.35-7.45)
[2024-05-15 05:47] LABS: Potassium 7.1 mMOL/L (3.5-5.1)
[2024-05-15] MEDS: NOVOLIN R 10 UNITS IV (05:57)
[2024-05-15] MEDS: DEXTROSE 50% SYRINGE 25 GRAMS IV (05:57)
[2024-05-15] MEDS: CALCIUM GLUCONATE 100 IV (05:57)
[2024-05-15] MEDS: NSS 250 IV (05:59)
--- NOTE | 2024-05-15 06:23 | W.PN.UPDATE ---
Addendum entered and electronically signed by Mildred Berkowitz MD 05/15/24 14:00:
I was originally reached out around 5:30 in the morning due to clinical status change and patient with significantly abnormal labs as noted below. I discussed the clinical status and help come up with a plan in regards to acute management of
hyperkalemia and also requested recheck LFTs and lactate given concern for possible shock and then came in and evaluated patient at bedside.
The patient was mentating, she was tachypneic trying to compensate for significant metabolic acidosis. Given hemodynamics as well as acute kidney injury and change in clinical status, I was extremely concerned about cardiogenic shock and therefore
we discussed her urgently at the morning structural heart meeting and elected to expedite her case and bring her to the lab first case. In the interim we did continue to treat her hyperkalemia with plan to give additional Kayexalate, initiate
low-dose dobutamine and involve nephrology for likely dialysis postprocedure in the setting of acute kidney injury. Set of blood cultures were also sent. Lactate and LFTs resulted significantly elevated consistent with multiorgan injury included
acute kidney and liver injury with lactic acidosis in the setting of cardiogenic shock.
Mildred Berkowitz MD, [facility], [facility]
Critical care time 31 minutes
Original Note:
Update Note
Progress Note Update
-pt was hypotensive 80s with dizziness last night, some nausea earlier - improved with 250 NSS. SBP 90s-low 100s overnight. UO only 60 cc overnight. Hess placed this am.
-this am she was noted to be tachypneic, with Cr 2.1 (from 0.9), bicarb 11, K 7.1, iCa 1.13. Pt got another 250 cc NSS this am. K was treated with 2g Ca gluconate, 100 meq bicarb, D50 and insulin. Pt is feeling and looking better
-discussed with Dr. Minaya to follow pt
-ptt was 154 overnight and iv Heparin was held. Didn't restart iv Heparin this am d/t MORAIMA
-rechecking BMP, LFT, lactic acid, BHB this am.
-discussed with Dr. Berkowitz - will start Dobut @ 2.5, gave Kayexalate, sent out blood cultures.
-will plan for intubation at laborer [employer] [facility]
[2024-05-15 06:32] LABS: Glucose - Point of Care 238 mg/dl (70-99)
--- NOTE | 2024-05-15 07:13 | PTCARENOTE ---
Work of breathing increased, spo2 was stable at 98% on 2 LNC. AM labs revealed metabolic acidosis. K was 7.1, creat was 2.1, and GFR dropped to 23.09. meds given were bicarb x2, 2 grams of calcium gluconate, 10 units of reg insulin, 25mg of
dextrose, 250mls of NS. labs drawn. turner placed. will continue to monitor.
[2024-05-15 07:25] LABS: Lactic Acid 11.3 mmol/L (0.7-2.0)
[2024-05-15] MEDS: LOW STRENGTH ASPIRIN 81 MG PO (07:38)
[2024-05-15] MEDS: BENADRYL 50 MG PO (07:39)
--- NOTE | 2024-05-15 07:45 | PTCARENOTE ---
blood cultures, benadryl and baby ASA given. sent in bed with central lab technician RNs for TAVR.
--- NOTE | 2024-05-15 08:18 | W.PN.UPDATE ---
Update Note
Progress Note Update
Patient scheduled for TAVR with cardiothoracic surgery today. Will be transferred to CT surgery service. Medicine team will sign off, please contact if there are any further questions
[2024-05-15] MEDS: PACERONE PO (08:36)
[2024-05-15] MEDS: NOVOLOG FLEXPEN-MODERATE RESISTANCE SC (08:36)
[2024-05-15] MEDS: TOPROL XL PO (08:36)
[2024-05-15 09:30] LABS: ACT-LR - POC 205 Seconds (116-155)
[2024-05-15 09:37] LABS: ALT (SGPT) 1619 U/L (0-35); Alkaline Phosphatase 175 U/L (38-126); B-Hydroxybutyrate 0.36 mmol/L (0.02-0.27); Blood Urea Nitrogen 37 mg/dl (7-17); Calcium 8.8 mg/dl (8.4-10.2); Carbon Dioxide 14 mmol/L (22-30); Chloride 98 mmol/L (98-107); Estimated Creatinine Clearance 15 ml/min; Glucose 210 mg/dl (70-99); Sodium 135 mmol/L (135-145); Total Protein 5.2 g/dl (6.3-8.2); eGFR 19.67
[2024-05-15 09:37] LABS: ACT-LR - POC 213 Seconds (116-155)
[2024-05-15 09:38] LABS: Lactic Acid 11.9 mmol/L (0.7-2.0)
[2024-05-15 09:38] LABS: Body Fluid Glucose 136 mg/dl; Body Fluid Protein 5.9 g/dl
[2024-05-15 09:40] LABS: AST (SGOT) 2720 U/L (14-36)
[2024-05-15 09:46] LABS: B.E. - POC -13.2 mmol/L; Glucose - POC 239 mg/dl (70-99); HCO3 - POC 15 mmol/L (21-28); Hematocrit - POC 30 % PCV (37-47); Hemodilution- POC Yes; Hemoglobin Calculated - POC 10.1; Ionized Calcium - POC 1.21 mmol/L (1.15-1.33); O2 Saturation %Calculated-POC 98.2 % (94-98); PCO2 - POC 45 mmHg (35-48); PO2 - POC 141 mmHg (83-108); Potassium - POC 5.7 mmol/L (3.5-5.1); Sodium - POC 134 mmol/L (136-145); Specimen Type - POC Arterial; pH - POC 7.14 (7.35-7.45)
[2024-05-15 09:47] LABS: Body Fluid LDH 1631 U/L
[2024-05-15 09:48] LABS: ACT-LR - POC 255 Seconds (116-155)
--- NOTE | 2024-05-15 10:10 | W.CVOR.SURPR ---
CVOR Surgeon Immed Pre Op
-
I have examined this patient prior to performance of the scheduled procedure.
The patient's condition is unchanged from the time of the dictated/written History and
Physical and the patient is able to undergo the scheduled procedure.
--- NOTE | 2024-05-15 10:10 | W.IMMPOSTOP ---
Addendum entered and electronically signed by Srinivas Cunningham MD 05/15/24 10:41:
[id number]
Original Note:
Surgical Immed Post Op Note
-
STRUCTURAL HEART PROCEDURE NOTE:
Preoperative Dx:
Cardiogenic shock
MORAIMA w/ oliguria
Recent bradycardic arrest - s/p emergent temp pacing wire & subsequent PPM
Severe/critical aortic stenosis (P/M: 103/73, NIKKI 0.5, Group Care Worker 5.09)
Moderate MR w/ mild MS (MG 6)
LVH
Non-obstructive CAD
Postoperative Dx:
Same
Significant blood pericardial effusion noted on initial PINO assessment preprocedurally
Procedures:
1) L CFV access w/ U/S and fluoroscopic guidance; 6Fr sheath placement
2) L SONG LYRICIST access w/ tactile, U/S, and fluoroscopic guidance, 6Fr sheath placement
3) R SONG LYRICIST access w/ tactile, U/S, and fluoroscopic guidance, 8Fr sheath placement
4) Subxiphoid pericardiocentesis w/ placement 6Fr sheath & pigtail catheter w/ drainage of blood pericardial effusion (~500mL) - resolution confirmed on PINO assessment
5) Placement of temporary RV pacing wire via L CFV access
6) Placement of pigtail catheter in NCC w/ limited aortography & confirmation of cusp overlap view
7) Placement of perclose x 2 into L SONG LYRICIST w/ replacement of 8Fr sheath
8) Serial dilation of R ileofemoral system w/ subsequent placement of 14Fr COOK sheath
9) Wire purchase across stenotic AV (AL-1, soft-tip straight, table-J wire, pigtail catheter placement, LVEDP assessment [28mmHg], juanermimi wire)
10) Fluoroscopic inspection of TAVR valve
11) Pre-TAVR BAV w/ 20mm balloon
12) R TF TAVR w/ placement of 29mm Evolut FX
13) Completion PINO assessment (No AI/PVL, mean gradient 12mmHg)
14) Removal of temporary pacing wire
15) Removal of L CFV 6Fr sheath and placement of L CFV HD catheter
16) Removal of valve-delivery system w/ R SONG LYRICIST mgmt w/ perclose sutures x 2; manual pressure
17) Completion R ileofemoral angiography
18) Limited L femoral angiography
19) Removal of L SONG LYRICIST sheath w/ mgmt w/ 6Fr angioseal; manual pressure
20) HD line and pericardial drain/sheath secured in-situ
Poultry Offal Icer:
Mildred Berkowitz M.D.
Cardiac Surgeon:
Srinivas Cunningham M.D.
Anesthesia:
GET w/ PINO; Omi Castellon M.D.
Implants:
Medtronic Evolut FX; 29mm; SN: [id number]
Pericardial 6Fr sheath & pigtail catheter
L CFV Trio-CT TL HD catheter
Perclose x 2 into R SONG LYRICIST
6Fr angioseal x 1 into L SONG LYRICIST
Cath Data:
Start: 0843hrs, Deploy: 0941hrs, End: 1004hrs
FT: 14.0min, mGy: 464.34, DAP: 32.8656, Contrast: 85 visi
Post-PINO: No AI/PVL, mean gradient 12mmHg; pericardial effusion resolved
Condition:
Improved
Extubated in cath lab manager post-procedure
[2024-05-15 10:20] LABS: B.E. - POC -9.2 mmol/L; Glucose - POC 330 mg/dl (70-99); HCO3 - POC 18 mmol/L (21-28); Hematocrit - POC 25 % PCV (37-47); Hemodilution- POC Yes; Hemoglobin Calculated - POC 8.6; Ionized Calcium - POC 1.15 mmol/L (1.15-1.33); O2 Saturation %Calculated-POC 99.4 % (94-98); PCO2 - POC 43 mmHg (35-48); PO2 - POC 190 mmHg (83-108); POC Comment POST OP; Potassium - POC 5.2 mmol/L (3.5-5.1); Sodium - POC 135 mmol/L (136-145); Specimen Type - POC Arterial; pH - POC 7.23 (7.35-7.45)
[2024-05-15] MEDS: ANCEF 10 IV ×2 (11:00)
[2024-05-15 11:08] LABS: B.E. -5.2 mmol/L; HCO3 19.9 mmol/L (21-28); Ionized Calcium 1.19 mMOL/L (1.15-1.33); O2 Saturation % 98.8 % (94-98); PCO2 36 mmHg (32-35); PO2 112 mmHg (83-108); Potassium 5.5 mMOL/L (3.5-5.1); Sodium 134 mMOL/L (136-145); pH 7.35 (7.35-7.45)
[2024-05-15 11:09] LABS: O2 Therapy VENT
[2024-05-15 11:11] LABS: Hematocrit 25.5 % (37.0-47.0); Hemoglobin 8.3 g/dL (12.0-16.0); Mean Corp Hgb Conc. 32.5 g/dL (33.0-37.0); Mean Corpuscular Hgb 26.9 pg (27.0-31.0); Mean Corpuscular Volume 82.5 fL (81.0-99.0); Platelet Count 197 10^3/uL (130-400); Red Blood Cell Count 3.09 10^6/uL (4.20-5.40); Red Cell Dist. Width 15.1 % (11.5-14.5)
[2024-05-15 11:22] LABS: Blood Urea Nitrogen 37 mg/dl (7-17); Calcium 8.3 mg/dl (8.4-10.2); Carbon Dioxide 19 mmol/L (22-30); Chloride 97 mmol/L (98-107); Estimated Creatinine Clearance 16 ml/min; Glucose 268 mg/dl (70-99); Sodium 133 mmol/L (135-145)
[2024-05-15 11:28] LABS: Lactic Acid 8.8 mmol/L (0.7-2.0)
[2024-05-15 11:30] LABS: Potassium 5.3 mmol/L (3.5-5.1)
--- NOTE | 2024-05-15 11:46 | CM ---
Reviewed chart. Mrs. Alfonso is in the operating room today. Prior to admission she resides with her spouse in a one story home with five steps to enter. Her daughter resides nearby and is supportive. Prior to admission she ws independent with
ambulation and adls. She does not have any DME in the home. She has a prescription plan and [facility] Prescription plan and uses [facility]. Medical work-up in progress. The discharge plan is to return home with her spouse and a home visit by the
Transitional Care Nurse when medically stable.
--- NOTE | 2024-05-15 12:00 | PTCARENOTE ---
received patient from animal laboratory technician drowsy but arousable. V paced. 98% on simple face mask. remains with periods of apnea but stable. Pulses palpable. no edema. No gtts. turner draining minimal tea colored urine. pericardial drain to gravity bag. dark
red. approx 500 Ml in bag. L radial A line present and patent. Does not correlate with cuff pressures (cuff approx 30 lower sys). moves all extremities. labs drawn and sent. cxr and ekg done. will continue to monitor.
[2024-05-15 12:32] LABS: % Basophils 0.2 % (0-2); % Immature Granulocytes 5.2 % (0-0.5); % Lymphocytes 7.5 % (20.5-51.1); % Monocytes 4.7 % (1.7-9.3); % Neutrophils 82.4 % (42.2-75.2); Absolute Immature Granulocytes 1.2 10^3/uL (0-0.05); Absolute Lymphocytes 1.7 10^3/uL (1.2-3.4); Absolute Monocytes 1.1 10^3/uL (0.1-0.6); Nucleated Red Blood Cells % 0 %
--- NOTE | 2024-05-15 13:12 | W.CON.NEPH ---
Consultation
-
Date/Time Consultation Requested: 05/15/24 0613
Date/Time Consultation Performed: 05/15/24 1330
Requesting Provider: Gissel Fowler PA-C
Performing Provider: Julianne Nicholas
Reason for Consultation: MORAIMA and hyperkalemia
Medical History
-
Chief Complaint: CP/SOB
History of Present Illness:
84-year-old female with past medical history of hypertension on Amlodipine, enalarpil, hyperlipidemia on statin, hypothyroidism, with history of syncopal episodes noted to have severe , was plan to have TAVR on 05/15. However she developed
palpitations, chest discomfort and left shoulder pain on admit on 05/08. On arrival to ER was noted to be tachycardic with heart rates in the 150s. She was given 6 mg of adenosine and was felt to be in atrial flutter and started on cardizem gtt. On
05/11 pt had shmuel arrhythmia and arrest with brief CPR. Subsequently had PPM on same day fro 3AVB. She supposed to have TAVR as per scheduled today but noted cr increased from 0.9 yesterday to 2.1 this morning with severe hyperkalemia at 7.1, L acid
11.3, bicarb 14 and decreased UOP. Her BPs were relatively low entire yesterday. NOted in cardiogenic shock and She was taken to microbiological lab technician urgently and noted pericardial tamponade s/p drainage 500cc bloody fluid, also had TAVR successfully. She had
temp HD catheter placed too. Repeat labs cr 2.3, k 5.3, bicarb 19. Nephrology was consulted for MORAIMA and hyperkalemia. She feels after the procedure and has no CP or sob. On luisana hugger currently for hypothermia. No n/v. Turner catheter with small
amount of urine only. No fever or chills.
Past Medical History
Severe ,
History of syncope
HTN
HLD
Hypothyroidism
History of JEAN/oophorectomy
Asthma,
Hypercholesterolemia,
NIDDM
Past Surgical History: Other
Social History
Tobacco: Non-Smoker
Alcohol: None
Drug: None
Personal:
Living: With Family
Family History
Family History: Not Pertinent
Allergies / Home Medications
Allergy/AdvReac Type Severity Reaction Status Date / Time
adhesive tape Allergy Itching Verified 05/08/24 17:30
erythromycin base Allergy Sneezing Verified 05/08/24 17:30
Iodinated Contrast Media Allergy IV Verified 05/08/24 17:30
CONTRAST-TORSO
RASH WITH
CATH
sulfamethoxazole Allergy Rash Verified 05/08/24 14:27
trimethoprim Allergy Rash Verified 05/08/24 14:27
�Medication �Instructions �Recorded �Confirmed �Type
albuterol sulfate 90 mcg/actuation 2 puff inhalation R Q6HPRN PRN sob 04/23/24 05/08/24 History
aerosol inhaler
amlodipine 5 mg tablet 5 mg PO NOON Blood Pressure 04/23/24 05/08/24 History
atorvastatin 10 mg tablet 10 mg PO HS High Cholesterol 04/23/24 05/08/24 History
coenzyme Q10 100 mg tablet 100 mg PO NOON Supplement 04/23/24 05/08/24 History
enalapril maleate 20 mg tablet 20 mg PO BID Blood Pressure 04/23/24 05/08/24 History
mv-mn-folic 200 mcg-vit K 15 1 cap PO BID Supplement 04/23/24 05/08/24 History
mcg-lutein 5 mg-zeaxanthin 1 mg
capsule (PreserVision AREDS 2 Plus
Multivit)
budesonide 3 mg 3 mg PO UD INFLAMMATION 05/06/24 05/06/24 History
capsule,delayed,extended release
Review of Systems
-
All complete 12point ROS have nbeen inquired and found negative other than stated in HPI
All other systems: Negative unless noted
Physical Exam
Vital Signs
Vital Signs
Temp Pulse Resp BP Pulse Ox
96.4 F L 73 16 108/59 95
05/15/24 12:12 05/15/24 12:12 05/15/24 12:00 05/15/24 07:40 05/15/24 12:12
Lab Results
WBC 23.0 10^3/uL (4.8-10.8) H 05/15/24 10:46
RBC 3.09 10^6/uL (4.20-5.40) L 05/15/24 10:46
Hgb 8.3 g/dL (12.0-16.0) L 05/15/24 10:46
Hct 25.5 % (37.0-47.0) L 05/15/24 10:46
Plt Count 197 10^3/uL (130-400) 05/15/24 10:46
eGFR 20.70 05/15/24 10:46
Albumin 3.0 g/dl (3.5-5.0) L 05/15/24 08:00
Abnormal Lab Results
05/14/24 05/14/24 05/14/24
16:42 18:24 21:09
WBC
RBC
Hgb
Hct
MCH
MCHC
RDW
MPV
Abs Immat Gran (auto)
Absolute Neuts (auto)
Absolute Monos (auto)
Immature Gran %
Neutrophils %
Lymphocytes %
APTT 100.4 H
pCO2
pO2
HCO3
ABG O2 Sat (Measured)
POC ABG O2 Sat (Calc)
VBG pH
VBG pCO2
VBG pO2
VBG HCO3
Sodium
Potassium
Chloride
Carbon Dioxide
BUN
Creatinine
Glucose
Lactic Acid
Calcium
Ionized Calcium
Total Bilirubin
AST
ALT
Alkaline Phosphatase
Total Protein
Albumin
B-Hydroxybutyrate
POC pH
POC pO2
POC HCO3
POC Glucose 212 H 208 H
POC Sodium
POC Potassium
POC ACT Low Range
POC Hematocrit
05/15/24 05/15/24 05/15/24
02:36 04:37 05:26
WBC 18.7 H
RBC 3.76 L
Hgb 10.0 L
Hct 31.1 L
MCH 26.6 L
MCHC 32.2 L
RDW 15.0 H
MPV 10.9 H
Abs Immat Gran (auto) 0.4 H
Absolute Neuts (auto) 16.5 H
Absolute Monos (auto)
Immature Gran % 2.3 H
Neutrophils % 88.2 H
Lymphocytes % 6.6 L
APTT 154.4 H*
pCO2
pO2
HCO3
ABG O2 Sat (Measured)
POC ABG O2 Sat (Calc)
VBG pH 7.21 L
VBG pCO2 34 L
VBG pO2 51 H
VBG HCO3 13.6 L
Sodium 130 L 132 L
Potassium 5.9 H D 7.1 H*
Chloride 97 L
Carbon Dioxide 16 L 11 L*
BUN 34 H 35 H
Creatinine 1.8 H 2.1 H
Glucose 193 H 175 H
Lactic Acid
Calcium
Ionized Calcium
Total Bilirubin
AST
ALT
Alkaline Phosphatase
Total Protein
Albumin
B-Hydroxybutyrate
POC pH
POC pO2
POC HCO3
POC Glucose 163 H
POC Sodium
POC Potassium
POC ACT Low Range
POC Hematocrit
05/15/24 05/15/24 05/15/24
05:38 06:31 06:35
WBC
RBC
Hgb
Hct
MCH
MCHC
RDW
MPV
Abs Immat Gran (auto)
Absolute Neuts (auto)
Absolute Monos (auto)
Immature Gran %
Neutrophils %
Lymphocytes %
APTT
pCO2 19 L
pO2 111 H
HCO3 11.0 L*
ABG O2 Sat (Measured) 98.1 H
POC ABG O2 Sat (Calc)
VBG pH
VBG pCO2
VBG pO2
VBG HCO3
Sodium
Potassium 7.1 H*
Chloride
Carbon Dioxide
BUN
Creatinine
Glucose
Lactic Acid 11.3 H*
Calcium
Ionized Calcium 1.13 L
Total Bilirubin
AST
ALT
Alkaline Phosphatase
Total Protein
Albumin
B-Hydroxybutyrate
POC pH
POC pO2
POC HCO3
POC Glucose 238 H
POC Sodium
POC Potassium
POC ACT Low Range
POC Hematocrit
05/15/24 05/15/24 05/15/24
08:00 09:20 09:31
WBC
RBC
Hgb
Hct
MCH
MCHC
RDW
MPV
Abs Immat Gran (auto)
Absolute Neuts (auto)
Absolute Monos (auto)
Immature Gran %
Neutrophils %
Lymphocytes %
APTT
pCO2
pO2
HCO3
ABG O2 Sat (Measured)
POC ABG O2 Sat (Calc)
VBG pH
VBG pCO2
VBG pO2
VBG HCO3
Sodium
Potassium 6.0 H
Chloride
Carbon Dioxide 14 L*
BUN 37 H
Creatinine 2.4 H
Glucose 210 H
Lactic Acid 11.9 H*
Calcium
Ionized Calcium
Total Bilirubin 2.0 H D
AST 2720 H*
ALT 1619 H*
Alkaline Phosphatase 175 H
Total Protein 5.2 L D
Albumin 3.0 L
B-Hydroxybutyrate 0.36 H
POC pH
POC pO2
POC HCO3
POC Glucose
POC Sodium
POC Potassium
POC ACT Low Range 205 H 213 H
POC Hematocrit
05/15/24 05/15/24 05/15/24
09:38 09:39 10:15
WBC
RBC
Hgb
Hct
MCH
MCHC
RDW
MPV
Abs Immat Gran (auto)
Absolute Neuts (auto)
Absolute Monos (auto)
Immature Gran %
Neutrophils %
Lymphocytes %
APTT
pCO2
pO2
HCO3
ABG O2 Sat (Measured)
POC ABG O2 Sat (Calc) 98.2 H 99.4 H
VBG pH
VBG pCO2
VBG pO2
VBG HCO3
Sodium
Potassium
Chloride
Carbon Dioxide
BUN
Creatinine
Glucose
Lactic Acid
Calcium
Ionized Calcium
Total Bilirubin
AST
ALT
Alkaline Phosphatase
Total Protein
Albumin
B-Hydroxybutyrate
POC pH 7.14 L 7.23 L
POC pO2 141 H 190 H
POC HCO3 15 L 18 L
POC Glucose 239 H 330 H
POC Sodium 134 L 135 L
POC Potassium 5.7 H 5.2 H
POC ACT Low Range 255 H
POC Hematocrit 30 L 25 L
05/15/24 05/15/24
10:46 10:46
WBC 23.0 H
RBC 3.09 L
Hgb 8.3 L
Hct 25.5 L
MCH 26.9 L
MCHC 32.5 L
RDW 15.1 H
MPV 11.0 H
Abs Immat Gran (auto) 1.2 H
Absolute Neuts (auto) 19.0 H
Absolute Monos (auto) 1.1 H
Immature Gran % 5.2 H
Neutrophils % 82.4 H
Lymphocytes % 7.5 L
APTT
pCO2 36 H
pO2 112 H
HCO3 19.9 L
ABG O2 Sat (Measured) 98.8 H
POC ABG O2 Sat (Calc)
VBG pH
VBG pCO2
VBG pO2
VBG HCO3
Sodium 134 L 133 L
Potassium 5.5 H 5.3 H
Chloride 97 L
Carbon Dioxide 19 L
BUN 37 H
Creatinine 2.3 H
Glucose 268 H
Lactic Acid 8.8 H*
Calcium 8.3 L
Ionized Calcium
Total Bilirubin
AST
ALT
Alkaline Phosphatase
Total Protein
Albumin
B-Hydroxybutyrate
POC pH
POC pO2
POC HCO3
POC Glucose
POC Sodium
POC Potassium
POC ACT Low Range
POC Hematocrit
Echo:
CONCLUSIONS
1. Normal left ventricular size and systolic function without regional wall
motion abnormalities. Mild concentric left ventricular hypertrophy. Estimated
left ventricular ejection fraction is 55 to 60% by visual estimation.
2. Normal right ventricular size and systolic function.
3. Mitral annular calcification with mild mitral regurgitation.
4. Status post 29 mm [employer]onic EVOLUT FX transcatheter aortic valve
replacement which is well-seated without evidence of any aortic regurgitation
or para-valvular leak. Peak and mean transaortic gradients of 10 and 5 mmHg,
respectively.
5. Mild tricuspid regurgitation with estimated pulmonary artery systolic
pressure of 33 mmHg.
6. No pericardial effusion.
Physical Exam
General: Awake, Alert, Oriented, AOx3, No Distress and Nontoxic
HEENT: EOMI, Anicteric and Facial Symmetry
Respiratory: Clear, Normal Excursion, Nonlabored Respirations and Other (decreased bs)
Cardiac: S1/S2 and Regular Rate/Rhythm
Breast: Deferred by me
Abdomen: Soft, Nontender and Nondistended
Musculoskeletal: No Cyanosis and No Edema
Skin: No Rash
Neuro: Nonfocal/Grossly Intact
Psych: Mood/afflect pleasant, Insight/judgement good and Appropriate
Data Reviewed
-
Labs: Labs Reviewed by me, Discussed with Physician, Discussed with Nurse and Discussed with Patient
Assessment/Plan
-
IMP:
MORAIMA
severe hyperkalemia
Severe L acidosis
cardiogenic shock
Critical aortic stenosis s/p TAVR 05/15
Pericardial tamponade s/p pericardiocentesis 05/15
Cardiac Arrest 05/11
Third-degree AV block s/p PPM
AF/AFL
Nonischemic myocardial injury
Hypertension
HLD
Leukocytosis
H/O colitis
Elevated LFTs-shock liver
Plan:
A/w symptomatic , Afib, later brief PEA arrest s/p PPM
MORAIMA-likely prerenal with pericardial effusion and low BP
check UA, Fena, follow UOP-anuric overnight
expect to see improvement with better hemodynamics s/p pericardiocentesis with TAVR
hyperkalemia likely cellular shift from sig L acidosis-improving
cont to follow labs today , keep turner
Ok for gentle IVF
BP are increasing trend now
no emergent need of HD, keep HD line still
avoid nephrotoxins
d/w pt, nursing and CVICU
--- NOTE | 2024-05-15 13:14 | W.PN.UPDATE ---
Update Note
Progress Note Update
Device interrogated at the bedside and reviewed with [employer] team.
Intracardiac electrograms demonstrate a positive current of injury on the atrial lead which would be expected.
Unipolar threshold of 2.75@0.4 ms and bipolar threshold on the atrial lead of 3.25@0.4 ms. Typically if the atrial lead was perforated we would see a more elevated unipolar threshold then bipolar and sensing is intact at 1.6. The ventricular does
a threshold of 0.3 at 0.4 ms and R wave of 20. Chest x-ray demonstrates stable lead position and appearance of intracardiac atrial lead.
As such I do not see any clear evidence for lead perforation of either the atrial lead and the ventricular lead. As she is atrially paced 2.6% overnight I think would be reasonable to observe these leads and follow clinically. I would leave the
drain in the pericardial space overnight to tack down the pericardial space and to follow for any ongoing drainage. We will plan to reinterrogate the device in the morning. If lead parameters are stable I would favor clinical observation.
Certainly if we see a marked change in the atrial lead parameters would consider revision.
--- NOTE | 2024-05-15 14:04 | ITS.CL.TAVR ---
[employer] President - TAVR Report
TAVR PRocedure
Procedure Report:
PERICARDIOCENTESIS AND TRANSCATHETER AORTIC VALVE REPLACEMENT
Date of Procedure: May 15, 2024
Referring: El Be MD
Operators: Drs. Mildred Berkowitz, and Srinivas Cunningham
PROCEDURE PERFORMED:
1. Pericardiocentesis via subcostal approach under echocardiographic guidance
2. Successful placement of 29 mm Medtronic Evolut FX valve via right femoral artery.
3. Ultrasound-guided access.
PREPROCEDURE NYHA CLASS: III
DESCRIPTION OF PROCEDURE: The patient was referred for assessment of severe symptomatic aortic stenosis and following a comprehensive evaluation it was felt that transcatheter aortic valve replacement (TAVR) would be the most appropriate treatment.
Informed consent was obtained prior to the procedure. A 'time-out' was called and the procedural plan was verbally confirmed by anesthesia, surgery, perfusion, and slabbing machine operator staff.
Given significant decompensation overnight with borderline blood pressures, new acute kidney injury, lactic acidosis, acute liver injury and concern for cardiogenic shock decision was made to proceed with intubation prior to planned transcatheter
aortic valve replacement. At the time of intubation postinjection patient became hypotensive to systolics in 60s with increasing pressor requirement for recovery. In the setting we decided to proceed with PINO under general anesthesia to get
additional information in case there had been any changes since the last echocardiogram on May 12, 2024. Patient was found to have a new moderate to large size pericardial effusion with early tamponade physiology which we presumed is likely
culprit of acute decompensation overnight given that this was new compared to transthoracic echocardiogram from May 12 which did not have an effusion noted. In this setting we decided to proceed with urgent pericardiocentesis after obtaining
arterial and venous access.
Arterial and venous access were obtained in the left common femoral artery and vein using a micropuncture technique and 6 Fr. sheaths were inserted. Using ultrasound guidance, arterial access was also obtained in the right common femoral artery
using a micropuncture sheath kit. Through the micropuncture sheath, angiography confirmed arteriotomy in the common femoral artery and therefore an 8 E[place]an sheath was placed.
We then decided to proceed with urgent pericardiocentesis to improve patient's hemodynamics given concern for early tamponade physiology. Echocardiogram was used to ascertain the best approach vector. A sub-xiphoid approach was selected. The site
was anesthetized with 1% lidocaine. Under ultrasound guidance, a micropuncture needle was advanced into the pericardial space under negative pressure. After obtaining flashback of pericardial fluid, the micropuncture wire was advanced into the
pericardial space and the needle was removed. The micropuncture sheath was advanced over the wire and the wire and dilator were removed. Agitated saline was injected through the micropuncture sheath confirming its presence in the pericardial space
on echocardiography. A 0.035 inch J-wire was advanced through the micropuncture sheath and into the pericardial space. The micropuncture sheath was removed and a 6 [place]an sheath was advanced over the 0.035 inch wire. A pigtail catheter was advanced
through the sheath over the J-wire and placed in the pericardial space. The J-wire was removed. A sufficient sample of pericardial fluid was removed and sent for laboratory testing (hemoglobin, hematocrit, white blood cell count, LDH, albumin,
total protein, cytology and culture). The pigtail catheter was then connected to a pericardial bag and the pericardial space was evacuated. Serial echocardiography confirmed reduction in the pericardial effusion from severe to trace. All evidence of
tamponade was removed. The 6 [place]an sheath was sutured into place. The pigtail catheter was likewise sutured into place. Given significant improvement in hemodynamics with reduction in need for pressor support, we decided to proceed with planned
transcatheter aortic valve replacement.
Through the left common femoral venous access, a 5 Fr. transvenous pacing wire was then advanced to the right ventricle where excellent pacing thresholds were obtained. A 5 Fr. pigtail catheter was then advanced to the proximal ascending aorta /
noncoronary cusp where angiography was performed to define the the cusp overlap view isolating the non-coronary cusp with overlap of the right and left coronary cusps. The cusp overlap view was LUND of 14/caudal 26.
We placed a wire back through the 8 [place]an sheath in the right common femoral artery and over the wire deployed 2 Perclose sutures and replaced an 8 [place]an sheath was then inserted back into the common femoral artery over a J-tipped guidewire. An
AL1 catheter was then advanced to the proximal descending aorta. A Double-curve Lunderquist 0.035' wire was placed in the proximal descending thoracic aorta to facilitate delivery of a 14 Fr / 13 cm Cook sheath after serial dilatations.
An AL1 catheter was then positioned just above the aortic valve and a 0.035' Straight tip wire probed the aortic valve and crossed the stenotic leaflets. The AL1 was then advanced to the mid left ventricle. A long J-wire was advanced to the left
ventricular apex and was followed to the apex with an angled pig-tail catheter. The Double Curve Lunderquist was then positioned in the left ventricular apex. The Evolut FX stent was inspected under fluoroscopy/cine while rotating the stent
delivery system. The stent paddles were within the pocket and no significant crown overlap noted.
Balloon predilation was performed with rapid pacing using an 20 mm Kenton Gold balloon. Post rapid pacing, patient again experienced significant hypotension with slow recovery. The balloon was removed and the 14 Fr. sheath was exchanged for the
Evolut InLine delivery system. The 29 mm Evolut FX stent was advanced across the stenotic leaflets. The Evolut FX valve was slowly deployed in the leaflet overlap view until the stent flared achieving contact at 4-5mm below the noncoronary cusp.
The stent continued to flared achieving contact with the left coronary cusp. The image intensifier was rotated to an TORRES position to remove parallax from the valve with continued valve deployment with controlled pacing. We transitioned quickly
through the rumble strips on the InLine delivery sheath until the marker band was positioned just below the paddle attachment. Angiography was performed. The valve structure was released from the delivery system when we were happy with the valve
position. Post deployment, PINO showed no aortic insufficiency and a mean gradient of 12 mmHg. Transthoracic echocardiogram performed after completion of procedure in her room showed a mean transaortic gradient of 5 mmHg.
The Evolut FX delivery system capsule was reunited to the body of the delivery system. The Evolut InLine sheath was removed and the Perclose knots were advanced to the arteriotomy site resulting in excellent hemostasis.
Fluoro Time (min): 14.0, Dose (mGy): 464.34, DAP (Gy.cm2) : 32.86
CONCLUSIONS:
1. Successful pericardiocentesis via sub-xiphoid approach under echocardiographic guidance with significant improvement in cardiac tamponade with 500 cc of sanguineous pericardial fluid output. Pericardial drain secured in place via a 6 E[place]an
sheath.
2. Pericardial fluid has been sent for laboratory analysis.
3. Severe symptomatic aortic stenosis. Successful deployment of a 29 mm Evolut FX valve with minimal aortic insufficiency post procedure
4. Successful arteriotomy closure with 2 Perclose devices.
5. Acute on chronic diastolic heart failure with elevated LVEDP at 28 mmHg
Copy to: El Be MD and Nahomy Cerda MD
Mildred Berkowitz MD, [facility], [facility]
[2024-05-15 14:24] LABS: Body Fluid Hematocrit 44.8 %; Body Fluid WBC 6600 /CUMM
[2024-05-15 14:28] LABS: Body Fluid Second Tech AMA
--- NOTE | 2024-05-15 14:43 | CON.INTV ---
Consultation
Consultation Request
Date/Time Consultation Requested: 05/15/24
Date/Time Consultation Performed: 05/15/24
Performing Provider: Anthony
Reason for Consultation: CVICU
Medical History
-
History of Present Illness:
Patient is an 84-year-old female with previous history of hypertension, hyperlipidemia, symptomatic severe with active syncopal episodes undergoing current evaluation for TAVR as an outpatient which is scheduled for 05/15/2024. She presented to
ER on 05/08/2024 for palpitations, chest discomfort and left shoulder pain. She was noted to be in atrial flutter with RVR and placed on IV Cardizem.
Code 9 was called on 05/11/2024 due to acute episode of bradycardia with subsequent PEA arrest, CPR was initiated for less than 1 minute with achievement of ROSC. She underwent temporary venous pacemaker on 05/11/2023. Underwent PPM 05/12/24. She was
transferred to CVICU, on morning of procedure date had dizziness, hypotension, nausea, tachypneic. Underwent urgent TAVR placement w/ notation of pericardial effusion w/ likely tamponade requiring pericardiocentesis 05/15/2024.
Past Medical History
Past Medical History: Other (see list below)
Social History
Tobacco: Non-smoker
Alcohol: None
Drug: None
Family History
Family History: Reviewed & Not Pertinent
Allergies / Home Medications
Allergies
Allergy/AdvReac Type Severity Reaction Status Date / Time
adhesive tape Allergy Itching Verified 05/08/24 17:30
erythromycin base Allergy Sneezing Verified 05/08/24 17:30
Iodinated Contrast Media Allergy IV Verified 05/08/24 17:30
CONTRAST-TORSO
RASH WITH
CATH
sulfamethoxazole Allergy Rash Verified 05/08/24 14:27
trimethoprim Allergy Rash Verified 05/08/24 14:27
Home Medications
�Medication �Instructions �Recorded �Confirmed �Last Taken �Type
albuterol sulfate 90 mcg/actuation 2 puff inhalation R Q6HPRN PRN sob 04/23/24 05/08/24 Unknown History
aerosol inhaler
amlodipine 5 mg tablet 5 mg PO NOON Blood Pressure 04/23/24 05/08/24 05/08/24 History
atorvastatin 10 mg tablet 10 mg PO HS High Cholesterol 04/23/24 05/08/24 05/07/24 History
coenzyme Q10 100 mg tablet 100 mg PO NOON Supplement 04/23/24 05/08/24 04/22/24 12:00 History
enalapril maleate 20 mg tablet 20 mg PO BID Blood Pressure 04/23/24 05/08/24 05/08/24 History
mv-mn-folic 200 mcg-vit K 15 1 cap PO BID Supplement 04/23/24 05/08/24 05/08/24 History
mcg-lutein 5 mg-zeaxanthin 1 mg
capsule (PreserVision AREDS 2 Plus
Multivit)
budesonide 3 mg 3 mg PO UD INFLAMMATION 05/06/24 05/06/24 Unknown History
capsule,delayed,extended release
Review of Systems
-
History Source: Patient
All other systems: Negative unless noted
Vitals / Labs / Diagnostic Testing
Vital Signs
Temp Pulse Resp BP Pulse Ox
97.1 F 80 21 153/64 97
05/15/24 13:00 05/15/24 14:23 05/15/24 14:23 05/15/24 14:23 05/15/24 14:23
Lab Data
05/15/24 10:46
Laboratory Results
05/14/24 05/15/24 05/15/24
16:42 02:36 05:38
APTT 100.4 H 154.4 H*
pH 7.37
pCO2 19 L
pO2 111 H
HCO3 11.0 L*
O2 Delivery Level
05/15/24
10:46
APTT
pH 7.35
pCO2 36 H
pO2 112 H
HCO3 19.9 L
O2 Delivery Level Vent
Microbiology
05/15/24 08:53 Pericardial Fluid Gram Stain - Preliminary
Diagnostic Testing:
Physical Exam
-
HEENT: Normocephalic, Anicteric and Moist Mucous Membranes
Cardiovascular: S1/S2 and Regular Rhythm
Respiratory: Clear and Non-Labored Respirations
GI: Soft, Non Distended and Non Tender
Neurology: Awake, Alert, Oriented and No Motor Deficits
Skin: Warm, Dry and Good Color
General: Comfortable and Other (NAD)
Assessment
-
Patient is an 84-year-old female with previous history of hypertension, hyperlipidemia, symptomatic severe with active syncopal episodes undergoing current evaluation for TAVR as an outpatient which is scheduled for 05/15/2024. She presented to
ER on 05/08/2024 for palpitations, chest discomfort and left shoulder pain. She was noted to be in atrial flutter with RVR and placed on IV Cardizem.
Code 9 was called on 05/11/2024 due to acute episode of bradycardia with subsequent PEA arrest, CPR was initiated for less than 1 minute with achievement of ROSC. She underwent temporary venous pacemaker on 05/11/2023. Underwent PPM 05/12/24. She was
transferred to CVICU, on morning of procedure date had dizziness, hypotension, nausea, tachypneic. Underwent urgent TAVR placement w/ notation of pericardial effusion w/ likely tamponade requiring pericardiocentesis 05/15/2024.
Severe status post TAVR 05/15/2024
Pericardial effusion w/ likely tamponade s/p pericardiocentesis 05/15/24
Bradycardia with PEA arrest status post temporary venous pacer 05/11/2024
Leukocytosis
Hyponatremia, mild
Hyperkalemia
Elevated transaminitis, likely shock liver (pressor use in OR)
MORAIMA, creatinine 2.3-2.4, baseline 0.6�0.9
Conditions present MANAGER WOMEN
HTN
Hypothyroidism
NIDDM
Osteopenia/osteitis condensans
Diverticulosis
Cystocele
HLD
Sciatica
Internal hemorrhoid
Bladder prolapse
Macular degeneration
Moderate diffuse nonobstructive coronary artery disease with the most significant lesion being the borderline disease in the mid LAD
Lymphocytic colitis
Cataract extraction
(R) inguinal hernia repair
(L) oophorectomy
Bunionectomy
JEAN
Lump removed from under R arm, lymph node 1977
Pulm nodule 4mm RML
Plan
S/p TAVR/pericardiocentesis POD #0
Currently off pressors, but did require brief use intraoperatively
Shock liver likely a result, trend for now
ECHO reviewed with normal function
Drain in place following pericardiocentesis
Pain control
RASS goal of 0 to -1
Currently stable on RA
CXR with no obvious opacities/infiltrates
Maintain supplement oxygen as needed
No prior history of pulmonary disease
Chest imaging with small nodule that could be followed if patient is high risk (4mm)
No prior PFTs for review
Can add nebulizers if needed
Aspiration precautions
Encouraged incentive spirometry, OOB/ambulation/early mobility
Advance diet as tolerated following extubation
GI prophylaxis if indicated for mechanical ventilation >48 hours
MORAIMA noted-renal following, likely ATN
Monitor critical I/O's
Hess/chest tube output
Hb/platelets postoperatively stable
Trend CBC for now
Can transfuse if indicated for Hb <7, plt <50 in surgical patients
DVT prophylaxis including SCDs
We will follow
Diagnostic Data
Chest X-Ray: 05/15/24- TAVR graft projects over the region of the aortic root, Pericardial drain projects over the left upper heart border, Clear lungs
CT Scan: TAVR CT 05/01/24- 4 mm well-defined pulmonary nodule within the right middle lobe. Based on recommendations from the Fleischner Society, if there is no significant smoking history, no further follow-up is needed. If there is a significant
smoking history, follow-up CT of the chest is recommended in one year.
Echo: 04/18/2024 -- EF 54.4%, severe , aortic valve P/M 98/60, NIKKI 0.3, DI 0.14, pk giovana 4.94, trace to mild AI, moderate MR, MV MG 4.2.
PFT's:
Reports and relevant images were personally reviewed.
-----
Critical care time 54 mins -- this includes review of history, physical exam, medications, hemodynamic/ventilator parameters, laboratory data, imaging and discussion with house staff, pharmacy, respiratory therapy, district ranger, and nursing.
[2024-05-15] MEDS: PACERONE 200 MG PO ×2 (14:52→21:14)
[2024-05-15] MEDS: ANCEF 5 IV (14:52)
[2024-05-15 15:28] LABS: Body Fluid Polymorphonuclear 90 %
[2024-05-15 15:29] LABS: Body Fluid Mononuclear 10 %
[2024-05-15] MEDS: NORVASC 5 MG PO (16:00)
[2024-05-15 17:13] LABS: Lactic Acid 1.9 mmol/L (0.7-2.0)
[2024-05-15 17:27] LABS: Blood Urea Nitrogen 48 mg/dl (7-17); Calcium 8.6 mg/dl (8.4-10.2); Carbon Dioxide 23 mmol/L (22-30); Chloride 97 mmol/L (98-107); Estimated Creatinine Clearance 16 ml/min; Glucose 297 mg/dl (70-99); Potassium 5.4 mmol/L (3.5-5.1); Sodium 132 mmol/L (135-145); eGFR 21.84
[2024-05-15 17:50] LABS: B.E. 0.5 mmol/L; HCO3 24.3 mmol/L (21-28); Ionized Calcium 1.16 mMOL/L (1.15-1.33); O2 Saturation % 98.8 % (94-98); PCO2 35 mmHg (32-35); PO2 105 mmHg (83-108); Potassium 5.5 mMOL/L (3.5-5.1); Sodium 132 mMOL/L (136-145); pH 7.45 (7.35-7.45)
[2024-05-15 17:52] LABS: Mixed Venous O2 Saturation 98.6 %
--- NOTE | 2024-05-15 20:00 | PTCARENOTE ---
Assumed care of the patient at 1900. Patient AOx3, drowsy. V paced on telemetry, rates 70's, + pulses, trace LE edema, pericardial drain with sanguinous drainage, PPM DDDR 60-130 rates 70's, aquacell CDI, distant heart tones. On 2LNC, lungs dim at
the bases. + BS, poor appetite, abdomen SNT. Hess catheter in place draining clear ziggy urine. B/L groin sites intact. PIV x2 in the L hand/R forearm, L femoral HD catheter, L fem central line, L radial brooke. Square wave test performed on
arterial line demonstrates underdamping, cuff pressures approximately 30 mmHg less than recorded brooke pressures. KVO running in L femoral line. See nursing worklist for intervention details.
[2024-05-15] MEDS: LIPITOR 10 MG PO (21:14)
[2024-05-15 21:41] LABS: B.E. 0.4 mmol/L; HCO3 24.3 mmol/L (21-28); Ionized Calcium 1.15 mMOL/L (1.15-1.33); PCO2 35 mmHg (32-35); PO2 89 mmHg (83-108); Potassium 5.4 mMOL/L (3.5-5.1); pH 7.45 (7.35-7.45)
[2024-05-15 21:43] LABS: Hematocrit 25.2 % (37.0-47.0); Hemoglobin 8.4 g/dL (12.0-16.0); Platelet Count 221 10^3/uL (130-400)
[2024-05-15 21:44] LABS: Urine Albumin 1+ (Neg - Trace); Urine Bilirubin 1+ (Negative); Urine Character Very Cloudy (Clear); Urine Color Yellow; Urine Glucose Negative (Negative); Urine Ketone Negative (Negative); Urine Leukocyte Negative (Negative); Urine Nitrite Negative (Negative); Urine Occult Blood 4+ (Negative); Urine Urobilinogen Negative (Neg - 1+)
[2024-05-15 21:56] LABS: Lactic Acid 1.2 mmol/L (0.7-2.0)
[2024-05-15 22:01] LABS: Urine Sodium 33 mmol/L (30-90)
[2024-05-15 22:02] LABS: Blood Urea Nitrogen 51 mg/dl (7-17); Calcium 8.1 mg/dl (8.4-10.2); Carbon Dioxide 25 mmol/L (22-30); Chloride 95 mmol/L (98-107); Estimated Creatinine Clearance 15 ml/min; Glucose 290 mg/dl (70-99); Magnesium 2.2 mg/dl (1.6-2.3); Potassium 5.4 mmol/L (3.5-5.1); Sodium 132 mmol/L (135-145); eGFR 19.67
[2024-05-15 22:05] LABS: Urine Amorphous Seen; Urine Squamous Cell 0-2 /LPF (Few)
[2024-05-15 22:06] LABS: Urine Bacteria Many (Negative); Urine White Cell 0-2 /HPF (0-5)
[2024-05-15] MEDS: NSS 1000 IV (22:28)
[2024-05-15] MEDS: LOKELMA 10 GRAM PO (23:26)
[2024-05-16] VITALS (19 sets, daily range): BP systolic 125–161; BP diastolic 58–107; BMI 26.9
--- NOTE | 2024-05-16 | PTCARENOTE ---
Patient sleeping between care. Lokelma given and IVF started per nephrology's recommendations via phone. Patient wiped with CHG, gown changed, and turner care provided. Arterial line continues to be underdamped. VS otherwise stable.
--- NOTE | 2024-05-16 04:00 | PTCARENOTE ---
Assessment unchanged, patient stable, no issues with B/L groin sites, neurovascular assessment intact. Patient continues to sleep between care, VSS.
[2024-05-16 04:35] LABS: B.E. -0.3 mmol/L; HCO3 23.9 mmol/L (21-28); O2 Saturation % 97.9 % (94-98); PCO2 36 mmHg (32-35); PO2 98 mmHg (83-108); pH 7.43 (7.35-7.45)
[2024-05-16 05:25] LABS: Hematocrit 24.4 % (37.0-47.0); Hemoglobin 7.9 g/dL (12.0-16.0); Mean Corp Hgb Conc. 32.4 g/dL (33.0-37.0); Mean Corpuscular Hgb 25.9 pg (27.0-31.0); Mean Platelet Volume 11.4 fL (7.4-10.4); Platelet Count 218 10^3/uL (130-400); Red Blood Cell Count 3.05 10^6/uL (4.20-5.40); Red Cell Dist. Width 14.8 % (11.5-14.5); White Blood Cell Count 31.6 10^3/uL (4.8-10.8)
[2024-05-16 05:49] LABS: Alkaline Phosphatase 198 U/L (38-126); Blood Urea Nitrogen 57 mg/dl (7-17); Calcium 8.1 mg/dl (8.4-10.2); Carbon Dioxide 24 mmol/L (22-30); Chloride 98 mmol/L (98-107); Direct Bilirubin 0.4 mg/dl (0.0-0.4); Estimated Creatinine Clearance 15 ml/min; Glucose 287 mg/dl (70-99); Potassium 5.1 mmol/L (3.5-5.1); Sodium 134 mmol/L (135-145); Total Bilirubin 0.8 mg/dl (0.2-1.3); Total Protein 5.3 g/dl (6.3-8.2); eGFR 19.67
[2024-05-16 06:06] LABS: ALT (SGPT) 2852 U/L (0-35)
[2024-05-16] MEDS: LOKELMA 10 GRAM PO ×3 (06:14→17:35)
[2024-05-16 06:37] LABS: AST (SGOT) 6391 U/L (14-36)
--- NOTE | 2024-05-16 06:52 | W.PN.CT ---
Today's Communication / Plan
-
-pod #1
-no issues overnight
-no output from pericardial drain overnight (total 550 since Cath)
-Hg 7.9 - ordered 1 pRBC
-Cr stable 2.4. UO 405/585 in 12/24 hrs- getting 1L NSS @ 70/hr
-K 5.1 today - getting Lokelma tid
-ABG normalized
-LA 1.2 last night (from 11)
-nsr with v-pacing overnight
-appreciate everyone's input
Assessment / Plan
-
- Critical symptomatic / pericardial tamponade - s/p Subxiphoid pericardiocentesis w/ placement 6Fr sheath & pigtail catheter w/ drainage of blood pericardial effusion (~500mL) - resolution confirmed on PINO assessment; Pre-TAVR BAV w/ 20mm
balloon; R TF TAVR w/ placement of 29mm Evolut FX on 05/15/24, pod #1
- Post-PINO: No AI/PVL, mean gradient 12mmHg; pericardial effusion resolved
- Pericardial tamponade
- Acute hyperkalemia
- Acute metabolic acidosis with respiratory alkalosis
- Acute severe lactic acidosis
- MORAIMA with oliguria
- Shock liver
- Acute cardiogenic shock
- PEA/bradycardic cardiac arrest 05/11- s/p temp pw, followed by [employer] pacer 05/12/24
- Recent paroxysmal a-fib
- Moderate MR w/ mild MS (MG 6)
- Non-obstructive CAD
- LVH
- Nonischemic myocardial injury
- Hypertension
- HLD
- Leukocytosis
- H/O colitis
Discussed patient care with: Nursing and Care Team
Subjective
-
Date of Service: May 16, 2024
Objective Data
-
PT 13.3 Sec (11.4-14.6) 05/11/24 16:43
INR 0.98 05/11/24 16:43
APTT 154.4 Sec (23.4-35.0) H* 05/15/24 02:36
Vital Signs
Vital Signs
Temp Pulse Resp BP Pulse Ox
98.4 F 83 14 148/60 94
05/16/24 03:00 05/16/24 03:00 05/16/24 03:00 05/16/24 03:00 05/16/24 03:00
CT Intake/Output/Weight
05/15/24 05/15/24 05/16/24
06:59 18:59 06:59
Intake Total 50 / 710 660 / 710
Output Total 180 / 500 320 / 500
Balance -130 / 210 340 / 210
SaO2: 94
Physical Exam
-
General: Awake and AOx3
Cardiovascular: Regular rate & rhythm, No Murmurs and No Rub
Respiratory: Decreased Breath Sounds
Incision: Other (groins are cdi, soft, nontender, no hematoma b/l)
Extremities: No Edema (DPs 2+ b/l)
Abdomen: soft, nontender, nondistended, + bowel sounds b/l
Data Reviewed
-
Lab Results: Results Reviewed
Medications: Active Meds Reviewed
Chest X-Ray: Report Reviewed and Image Reviewed
ECG: Report Reviewed and Image Reviewed
--- NOTE | 2024-05-16 07:34 | W.PN.INTV ---
Today's Communication / Plan
Recommendations
Doing well, stable on room air/off pressors
Drain in place, monitor output
Encouraged OOB/PT/OT
Transfer to tele, we will sign off upon transfer
Assessment
-
Patient is an 84-year-old female with previous history of hypertension, hyperlipidemia, symptomatic severe with active syncopal episodes undergoing current evaluation for TAVR as an outpatient which is scheduled for 05/15/2024. She presented to
ER on 05/08/2024 for palpitations, chest discomfort and left shoulder pain. She was noted to be in atrial flutter with RVR and placed on IV Cardizem.
Code 9 was called on 05/11/2024 due to acute episode of bradycardia with subsequent PEA arrest, CPR was initiated for less than 1 minute with achievement of ROSC. She underwent temporary venous pacemaker on 05/11/2023. Underwent PPM 05/12/24. She was
transferred to CVICU, on morning of procedure date had dizziness, hypotension, nausea, tachypneic. Underwent urgent TAVR placement w/ notation of pericardial effusion w/ likely tamponade requiring pericardiocentesis 05/15/2024.
Severe status post TAVR 05/15/2024
Pericardial effusion w/ likely tamponade s/p pericardiocentesis 05/15/24
Bradycardia with PEA arrest status post temporary venous pacer 05/11/2024
Leukocytosis
Hyponatremia, mild
Hyperkalemia
Elevated transaminitis, likely shock liver (pressor use in OR)
MORAIMA, creatinine 2.3-2.4, baseline 0.6�0.9
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
HTN
Hypothyroidism
NIDDM
Osteopenia/osteitis condensans
Diverticulosis
Cystocele
HLD
Sciatica
Internal hemorrhoid
Bladder prolapse
Macular degeneration
Moderate diffuse nonobstructive coronary artery disease with the most significant lesion being the borderline disease in the mid LAD
Lymphocytic colitis
Cataract extraction
(R) inguinal hernia repair
(L) oophorectomy
Bunionectomy
JEAN
Lump removed from under R arm, lymph node 1977
Pulm nodule 4mm RML
Plan
S/p TAVR/pericardiocentesis POD #1
Currently off pressors, but did require brief use intraoperatively
Shock liver likely a result, trend for now
ECHO reviewed with normal function
Drain in place following pericardiocentesis
D/c per team when output diminishes
Pain control
RASS goal of 0 to -1
Currently stable on RA
CXR with no obvious opacities/infiltrates
Maintain supplement oxygen as needed
No prior history of pulmonary disease
Chest imaging with small nodule that could be followed if patient is high risk (4mm)
No prior PFTs for review
Can add nebulizers if needed
Aspiration precautions
Encouraged incentive spirometry, OOB/ambulation/early mobility
Advance diet as tolerated following extubation
GI prophylaxis if indicated for mechanical ventilation >48 hours
MORAIMA noted-renal following, likely ATN
Monitor critical I/O's
Hess/chest tube output
Hb/platelets postoperatively stable
Trend CBC for now
Can transfuse if indicated for Hb <7, plt <50 in surgical patients
DVT prophylaxis including SCDs
Diagnostic Data
Chest X-Ray: 05/15/24- TAVR graft projects over the region of the aortic root, Pericardial drain projects over the left upper heart border, Clear lungs
CT Scan: TAVR CT 05/01/24- 4 mm well-defined pulmonary nodule within the right middle lobe. Based on recommendations from the Fleischner Society, if there is no significant smoking history, no further follow-up is needed. If there is a significant
smoking history, follow-up CT of the chest is recommended in one year.
Echo: 04/18/2024 -- EF 54.4%, severe , aortic valve P/M 98/60, NIKKI 0.3, DI 0.14, pk giovana 4.94, trace to mild AI, moderate MR, MV MG 4.2.
PFT's:
Reports and relevant images were personally reviewed.
-----
Critical care time 34 mins -- this includes review of history, physical exam, medications, hemodynamic/ventilator parameters, laboratory data, imaging and discussion with house staff, pharmacy, respiratory therapy, gold stamper, and nursing.
Subjective Dataa
Subjective Data
Date of Service:
Date of Service: May 16, 2024
Chief Complaint: Telecommunications Analyst Follow Up
Subjective:
Doing well, no events ON
Off pressors
Drain still in place
Objective Data
Data Reviewed
Vital Signs / I&O / Oxygen:
Vital Signs
Temp Pulse Resp BP Pulse Ox
98.2 F 84 9 145/65 95
05/16/24 07:00 05/16/24 07:00 05/16/24 07:00 05/16/24 07:00 05/16/24 07:00
Intake and Output
05/15/24 05/16/24 05/17/24
06:59 06:59 06:59
Intake Total 135.0 / 135.0 1100 / 1200 100 / 100
Output Total 585 / 585
Balance 135.0 / 135.0 515 / 615 100 / 100
SaO2 95
Nasal Cannula flow liters per 2
minute
Physical Exam
General: Comfortable and Other (NAD)
HEENT: Normocephalic, Anicteric and Moist Mucous Membranes
Cardiovascular: S1-S2, Regular Rhythm and Other (pericardial drain in place)
Respiratory: Clear and Non-Labored Respirations
GI: Soft, Non Distended and Non Tender
Neurology: Awake, Alert, Oriented and No Motor Deficits
Skin: Warm, Dry and Good Color
Labs/Micro/Reports
Lab Data
05/16/24 04:26
05/16/24 04:26
Laboratory Results
05/15/24 05/15/24 05/15/24
10:46 16:46 16:46
pH 7.35 Cancelled 7.45
pCO2 36 H Cancelled
pO2 112 H
HCO3 19.9 L
O2 Delivery Level Vent
05/15/24 05/15/24 05/15/24
16:46 16:46 16:46
pH
pCO2 35
pO2 Cancelled 105
HCO3 Cancelled 24.3
O2 Delivery Level Cancelled
05/15/24 05/15/24 05/16/24
16:46 21:34 04:26
pH 7.45 7.43
pCO2 35 36 H
pO2 89 98
HCO3 24.3 23.9
O2 Delivery Level Not Reportable Not Reportable
Microbiology
05/15/24 08:53 Pericardial Fluid Gram Stain - Preliminary
--- NOTE | 2024-05-16 08:00 | PTCARENOTE ---
Resumed care of the patient from prev RN. Patient AAOx3, drowsy. Resting in bed. easily aroused. V paced HR 70's-80s, + pulses, trace edema. Pericardial drain with minimal drain drainage to gravity bag. 2LNC. 96% pulse ox. diminished breath sounds.
+ BS, appetite fair. Hess draining clear yellow urine. B/L groin sites intact. L chest wall aquacell in place from PPM. PIV x2 patent. L femoral HD catheter, L fem central line, L radial brooke 1 unit PRBCs ordered and up infusing. will continue to
monitor.
--- NOTE | 2024-05-16 08:01 | W.PN.NEPH.PH ---
Today's Communication / Plan
-
Maintain IV fluids at 70 cc/h
Do not remove Turner
Follow-up BMP tomorrow
Hemodynamically stable
No dialysis requirement today
Assessment/Plan
-
IMP:
MORAIMA
severe hyperkalemia
Severe L acidosis
cardiogenic shock
Critical aortic stenosis s/p TAVR 05/15
Pericardial tamponade s/p pericardiocentesis 05/15
Cardiac Arrest 05/11
Third-degree AV block s/p PPM
AF/AFL
Nonischemic myocardial injury
Hypertension
HLD
Leukocytosis
H/O colitis
Elevated LFTs-shock liver
Plan:
A/w symptomatic , Afib, later brief PEA arrest s/p PPM
MORAIMA-likely prerenal with pericardial effusion and low BP
Creatinine up to 2.4 but remains nonoliguric 585cc via turner, weights up
Chest x-ray from this morning personally reviewed no overt congestive heart failure
Fractional excretion of sodium not consistent with prerenal stimulus
Hyperkalemia improving with correction of acidosis: ABG reviewed
cont to follow labs today , keep turner
Ok for gentle IVF at 70cc/hr
Hemodynamically stable today
no emergent need of HD, keep HD line still
avoid nephrotoxins
Patient clinically high risk with worsening renal failure
-
-
Date of Service: May 16, 2024
CC / HPI / ROS
-
Chief Complaint:
Acute kidney injury
History of Present Illness:
Creatinine up to 2.4
Hemodynamically stable
Review of Systems:
Nonoliguric via Turner
Pericardial drain in place
Weights up
Labs
-
Labs:
WBC 31.6 10^3/uL (4.8-10.8) H 01/10/25 04:26
RBC 3.05 10^6/uL (4.20-5.40) L 05/16/24 04:26
Hgb 7.9 g/dL (12.0-16.0) L 05/16/24 04:26
Hct 24.4 % (37.0-47.0) L 05/16/24 04:26
Plt Count 218 10^3/uL (130-400) 05/16/24 04:26
Sodium 134 mmol/L (135-145) L 05/16/24 04:26
Potassium 5.1 mmol/L (3.5-5.1) 05/16/24 04:26
Chloride 98 mmol/L (98-107) 05/16/24 04:26
Carbon Dioxide 24 mmol/L (22-30) 05/16/24 04:26
BUN 57 mg/dl (7-17) H 05/16/24 04:26
Creatinine 2.4 mg/dL (0.6-1.0) H 05/16/24 04:26
eGFR 19.67 05/16/24 04:26
Glucose 287 mg/dl (70-99) H 05/16/24 04:26
Calcium 8.1 mg/dl (8.4-10.2) L 05/16/24 04:26
Albumin 3.0 g/dl (3.5-5.0) L 05/16/24 04:26
Physical Exam
-
Vital Signs:
Vital Signs
Temp Pulse Resp BP Pulse Ox
98.2 F 84 9 145/65 95
05/16/24 07:00 05/16/24 07:00 05/16/24 07:00 05/16/24 07:00 05/16/24 07:00
Cardiovascular:: Regular rate and rhythm
Respiratory:: Bilateral: CTA
Lung Excursion:: Normal
Abdomen:: Nontender and Soft
Bowel Sounds:: Decreased
Extremity Edema:: None: Bilateral:
Turner Catheter: Yes
Other Findings::
Pericardial drain
--- NOTE | 2024-05-16 08:04 | W.PN.ANS.POP ---
Anesthesia Post Operative
- Anesthesia Post Op Note
Vital Signs Stable-See Nursing Note: Yes
Airway Patent: Yes
Adequate Pain Control: Yes
Change in Mental Status: No
Current Postoperative Nausea & Vomiting: No
Anesthesia Complications: No
General Anesthetic Recall: No
Unplanned Admission: No
Post Op Hydration Adequate: Yes
[2024-05-16] MEDS: NOVOLOG FLEXPEN-LOW RESISTANCE 3 UNITS SC ×3 (08:52→17:35)
[2024-05-16] MEDS: PACERONE 200 MG PO ×3 (08:53→22:55)
[2024-05-16] MEDS: NORVASC 5 MG PO (09:01)
[2024-05-16] MEDS: LOW STRENGTH ASPIRIN 81 MG PO (09:01)
[2024-05-16 11:27] LABS: Body Fluid Granulocytes 91 %; Body Fluid Lymphocytes 2 %; Body Fluid Macrophages 5 %
[2024-05-16 11:28] LABS: Body Fluid Other Cells 2 EOSINOPHIL %
[2024-05-16] MEDS: NSS 1000 IV (13:45)
[2024-05-16 13:54] LABS: Glucose - Point of Care 273 mg/dl (70-99)
--- NOTE | 2024-05-16 14:31 | CM ---
Reviewed chart. Met with Mrs. Chen to review discharge plans. She states she is feeling okay. Prior to admission she resides with his spouse in a one story home with five steps to enter. Her daughter resides nearby and is supportive. Prior to
admission she was independent with ambulation and adls. She does not have any DME in the home. She has a prescription warner and [employer] Prescription plan. Her co-pay for Eliquis is $15.00 a month. The one month free coupon is in her red discharge
folder. Will need to see her current functional level to see i she will have any skilled care needs. Medical work-up in progress. The discharge plan is to return home with her spouse, daughter support and a home visit by the Transitional Care
Nurse when medically stable.
[2024-05-16 17:16] LABS: Glucose - Point of Care 297 mg/dl (70-99)
--- NOTE | 2024-05-16 17:32 | W.PN.CARDCBS ---
Today's Communication / Plan
-
Plan:
-she initially presented with CP, SOB and was in rapid afib, new diagnosis
-she then had bradycardia arrhythmia followed by arrest with brief CPR with ROSC 05/11/24. she received temp wire followed by permanent Medtronic DC PPM 05/12/24.
-currently in asensed vpaced rhythm on tele, spontaneously converted to SR ~20:30 05/12. IV cardizem gtt stopped. continue toprol 25mg daily and amiodarone 200mg TID
-with some hypotension earlier, so OP norvasc placed on hold
-Her home oral anticoagulant has been on hold she had been on heparin pre-TAVR.
-Sunday evening into she had acute changes in her labs with MORAIMA, hyperkalemia, severe metabolic acidosis, lactic acidosis, acute liver injury due to cardiogenic shock from likely cardiac tamponade with baseline critical aortic
stenosis.
-On , May 15, 2024, she underwent successful urgent pericardiocentesis from a subcostal approach with 500 cc of sanguinous pericardial drainage with pericardial drain left in place. An additional 150 cc of fluid drained
overnight. Plan is to leave the drain in and reassess fluid output over the weekend. If she continues to have output, plan would be to reinterrogate the device on Sunday before pulling the drain. If her drainage decreases significantly, we could
consider discontinuing drain tomorrow.
-She also underwent transaortic valve replacement with 29 mm Medtronic Evolut FX + after pericardiocentesis which went uneventfully. On limited echocardiogram the valve appears well-seated with stable mean gradients and no significant PVL. No
significant pericardial effusion noted on repeat echo this morning.
-Still with significant MORAIMA and acute liver injury but normal lactate. She is starting to have urine output with no acute needs for hemodialysis. Defer to nephrology on when it would be safe to discontinue dialysis catheter.
-Device was reinterrogated on May 16, 2024. Atrial lead thresholds continue to stay high however upon discussion with top lift compresser, Dr. Constantine Astudillo, given she continues to still sense and capture with no changes in lead positioning on
chest x-ray, no acute indications for lead revision for now.
-No pressor needs at this time. Patient otherwise feels well, is mentating, on room air in no acute distress.
-Plan to continue holding anticoagulation for now until further decision is made in regards to timing of removal of pericardial drain ensuring no need in the near future for pacemaker lead revision.
-Discussed all of the above with patient and nursing at bedside
-Reached out to patient's daughter, Alina and discussed all of the above with updates with her over the phone.
-Discussed with outpatient library specialist, Dr. El Be and Colin Cerda.
Impression / Plan
-
Primary Financial Writer: Dr. Be of [facility]
Assessment:
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
Presentation with CP, SOB
Suspected atrial flutter with RVR however appears more like afib on tele in ER at present
Leukocytosis
Elevated troponin, suspected nonischemic myocardial injury in setting of rapid AF and severe
Severe , planned for TAVR 05/15/24
History of syncope
HTN
HLD
Hypothyroidism
History of JEAN/oophorectomy
IV contrast allergy
ECHO 04/18/24 at [facility]: EF 54%, severe with peak/mean gradients 98/60 mmHg, NIKKI 0.33 cm�, trace to mild AI, moderate MAC, mild to moderate MR
Echo 05/09/2024: EF 50 to 55%, mild mitral stenosis with a mean gradient of 6 point mercury, severe aortic stenosis with mean gradient of 73 mmHg aortic valve area 0.5 cm�, mild AI, PA systolic 37 mmHg
Plan:
-she initially presented with CP, SOB and was in rapid afib, new diagnosis
-she then had bradycardia arrhythmia followed by arrest with brief CPR with ROSC 05/11/24. she received temp wire followed by permanent Medtronic DC PPM 05/12/24.
-currently in asensed vpaced rhythm on tele, spontaneously converted to SR ~20:30 05/12. IV cardizem gtt stopped. continue toprol 25mg daily and amiodarone 200mg TID
-with some hypotension earlier, so OP norvasc placed on hold
-Her home oral anticoagulant has been on hold she had been on heparin pre-TAVR.
-Sunday evening into she had acute changes in her labs with MORAIMA, hyperkalemia, severe metabolic acidosis, lactic acidosis, acute liver injury due to cardiogenic shock from likely cardiac tamponade with baseline critical aortic
stenosis.
-On , May 15, 2024, she underwent successful urgent pericardiocentesis from a subcostal approach with 500 cc of sanguinous pericardial drainage with pericardial drain left in place. An additional 150 cc of fluid drained
overnight. Plan is to leave the drain in and reassess fluid output over the weekend. If she continues to have output, plan would be to reinterrogate the device on Sunday before pulling the drain. If her drainage decreases significantly, we could
consider discontinuing drain tomorrow.
-She also underwent transaortic valve replacement with 29 mm Medtronic Evolut FX + after pericardiocentesis which went uneventfully. On limited echocardiogram the valve appears well-seated with stable mean gradients and no significant PVL. No
significant pericardial effusion noted on repeat echo this morning.
-Still with significant MORAIMA and acute liver injury but normal lactate. She is starting to have urine output with no acute needs for hemodialysis. Defer to nephrology on when it would be safe to discontinue dialysis catheter.
-Device was reinterrogated on May 16, 2024. Atrial lead thresholds continue to stay high however upon discussion with top lift compresser, Dr. Constantine Astudillo, given she continues to still sense and capture with no changes in lead positioning on
chest x-ray, no acute indications for lead revision for now.
-No pressor needs at this time. Patient otherwise feels well, is mentating, on room air in no acute distress.
-Plan to continue holding anticoagulation for now until further decision is made in regards to timing of removal of pericardial drain ensuring no need in the near future for pacemaker lead revision.
-Discussed all of the above with patient and nursing at bedside
-Reached out to patient's daughter, Alina and discussed all of the above with updates with her over the phone.
-Discussed with outpatient library specialist, Dr. El Be and Colin Cerda.
Progress Note - Financial Writer
Subjective
Date of Service: May 16, 2024
No acute events overnight. No complaints this AM.
Objective
Labs:
05/16/24 04:26
05/16/24 04:26
Labs
Hgb 7.9 g/dL (12.0-16.0) L 05/16/24 04:26
Hct 24.4 % (37.0-47.0) L 05/16/24 04:26
Plt Count 218 10^3/uL (130-400) 05/16/24 04:26
PT 13.3 Sec (11.4-14.6) 05/11/24 16:43
INR 0.98 05/11/24 16:43
APTT 154.4 Sec (23.4-35.0) H* 05/15/24 02:36
Sodium 134 mmol/L (135-145) L 05/16/24 04:26
Potassium 5.1 mmol/L (3.5-5.1) 05/16/24 04:26
BUN 57 mg/dl (7-17) H 05/16/24 04:26
Creatinine 2.4 mg/dL (0.6-1.0) H 05/16/24 04:26
Glucose 287 mg/dl (70-99) H 05/16/24 04:26
Vital Signs and I&O:
Vital Signs
Temp Pulse Resp BP Pulse Ox
98 F 84 17 140/64 96
05/16/24 16:00 05/16/24 16:00 05/16/24 16:00 05/16/24 16:00 05/16/24 16:00
Vital Signs
Temp Pulse Resp BP Pulse Ox
98 F 84 17 140/64 96
05/16/24 16:00 05/16/24 16:00 05/16/24 16:00 05/16/24 16:00 05/16/24 16:00
Intake & Output
05/14/24 05/15/24 05/16/24 05/17/24
06:59 06:59 06:59 06:59
Intake Total 172.0 / 172.0 135.0 / 135.0 1100 / 1200 910 / 910
Output Total 200 / 200 585 / 585 720 / 720
Balance -28.0 / -28.0 135.0 / 135.0 515 / 615 190 / 190
Physical Exam
Physical Exam
GEN: No distress, awake, alert, oriented x3.
HEENT: supple, anicteric, mmm, eomi
LUNGS: CTA B/L, no wheezes/rales
CV: Reg, S1/S2, 1/6 LETITIA, RUSB pericardial drain inplace draining sanguinous fluid
ABD: soft, BS+, NT/ND
EXT: No cyanosis, clubbing, edema
NEURO: Gross non-focal
SKIN: Warm, pink, dry. No rash. L chest dressing c/d/i
--- NOTE | 2024-05-16 20:30 | PTCARENOTE ---
Patient received resting in bed. Patient A+A+Ox3. No neurological deficits noted. No c/o headache, dizziness or lightheadedness. Patient able to move all extremities without difficulty. O2 2L via NC. SpO2 96%. PPM - 100% V-Pacing. Heart rate
70's. No c/o chest pain, pressure or discomfort. Pericardial drain intact - No new drainage noted. Left anterior wall with dressing intact - PPM. Abdomen soft, nontender. Normoactive bowel sounds. No BM. No c/o nausea. No vomiting. Hess
catheter intact and patent - Light ziggy, yellow urine with small amount of sediment noted. Right groin dressing intact. Left groin with venous sheath/HD catheters - Intact. KVO 10 ml/hr. IVF NSS at 70 ml/hr. Patient with no c/o back or flank
pain. Assessment as documented.
[2024-05-16] MEDS: LIPITOR PO (22:55)
[2024-05-16 23:07] LABS: Glucose - Point of Care 323 mg/dl (70-99)
[2024-05-17] VITALS (13 sets, daily range): BP systolic 134–146; BP diastolic 57–86; BMI 27.5
--- NOTE | 2024-05-17 | PTCARENOTE ---
Patient's HS Accucheck result - 323. Physician's Steam Room Attendant for CT Surgery, Earl Honeycutt PA-C, made aware - New order for Novolog Flexpen 4 units sc now. Medication administered without difficulty. Patient given CHG bath and linens changed.
Hess catheter care completed. Hess output 450 ml. Patient with no c/o pain or discomfort. Assessment as documented.
[2024-05-17] MEDS: NOVOLOG FLEXPEN 4 UNITS SC (00:12)
--- NOTE | 2024-05-17 02:45 | W.PN.CT ---
Addendum entered and electronically signed by Srinivas Cunningham MD 05/17/24 09:17:
I saw and examined the patient.
The PA's note was reviewed and I agree with the note.
Comment:
Gila Chen - POD#2 s/p R TF TAVR (29 Andrzej) w/ pre-TAVR pericardiocentesis
Making good progress
Leave pericardial today (no sig output)
LFTs improving
Creat 1.4 from 2.4 - UO 800/1460; D/C HD line, D/C turner
OOB/IS
Pacer interrogation on Sunday
Original Note:
Today's Communication / Plan
-
-pod #2
-no issues overnight
-no output from pericardial drain overnight, 150 for 24hrs.
-Cr improving 1.4. UO 550/1210 in 12/24 hrs- getting 1L NSS @ 70/hr, ends this morning
-LFT's decreasing, AST 1244/ALT 1143
-K 4.3 today - d/c'd Lokelma
-nsr with v-pacing overnight
-?echo then d/c drain
-discharge planning
Assessment / Plan
-
- Critical symptomatic / pericardial tamponade - s/p Subxiphoid pericardiocentesis w/ placement 6Fr sheath & pigtail catheter w/ drainage of blood pericardial effusion (~500mL) - resolution confirmed on PINO assessment; Pre-TAVR BAV w/ 20mm
balloon; R TF TAVR w/ placement of 29mm Evolut FX on 05/15/24, pod #1
- Post-PINO: No AI/PVL, mean gradient 12mmHg; pericardial effusion resolved
- Pericardial tamponade
- Acute hyperkalemia
- Acute metabolic acidosis with respiratory alkalosis
- Acute severe lactic acidosis
- MORAIMA with oliguria
- Shock liver
- Acute cardiogenic shock
- PEA/bradycardic cardiac arrest 05/11- s/p temp pw, followed by Medtronic pacer 05/12/24
- Recent paroxysmal a-fib
- Moderate MR w/ mild MS (MG 6)
- Non-obstructive CAD
- LVH
- Nonischemic myocardial injury
- Hypertension
- HLD
- Leukocytosis
- H/O colitis
Subjective
Procedure
s/p Right TF TAVR with a 29mm Evolut FX, pericardial drain insertion by Dr. Cunningham on 05/15/24
-
Date of Service: May 17, 2024
Objective Data
-
Lab Results
05/16/24 04:26
05/17/24 04:04
PT 13.3 Sec (11.4-14.6) 05/11/24 16:43
INR 0.98 05/11/24 16:43
APTT 154.4 Sec (23.4-35.0) H* 05/15/24 02:36
Vital Signs
Vital Signs
Temp Pulse Resp BP Pulse Ox
97.8 F 75 16 139/63 98
05/17/24 00:00 05/17/24 02:00 05/17/24 02:00 05/17/24 02:00 05/17/24 02:00
CT Intake/Output/Weight
05/16/24 05/16/24 05/17/24
06:59 18:59 06:59
Intake Total 1050 / 1200 910 / 1710 800 / 1710
Output Total 405 / 585 810 / 1360 550 / 1360
Balance 645 / 615 100 / 350 250 / 350
SaO2: 98
Physical Exam
-
General: Awake and AOx3
Cardiovascular: Regular rate & rhythm
Respiratory: Clear
Incision: Dressing Intact
Extremities: No Edema
[2024-05-17 04:54] LABS: Albumin 2.7 g/dl (3.5-5.0); Alkaline Phosphatase 191 U/L (38-126); Blood Urea Nitrogen 64 mg/dl (7-17); Calcium 7.8 mg/dl (8.4-10.2); Carbon Dioxide 27 mmol/L (22-30); Chloride 100 mmol/L (98-107); Direct Bilirubin 0.2 mg/dl (0.0-0.4); Estimated Creatinine Clearance 29 ml/min; Glucose 245 mg/dl (70-99); Potassium 4.3 mmol/L (3.5-5.1); Sodium 134 mmol/L (135-145); Total Bilirubin 0.7 mg/dl (0.2-1.3); Total Protein 5.1 g/dl (6.3-8.2); eGFR 37.56
[2024-05-17 05:04] LABS: ALT (SGPT) 1143 U/L (0-35); AST (SGOT) 1244 U/L (14-36)
--- NOTE | 2024-05-17 05:30 | PTCARENOTE ---
Patient A+A+Ox3. No neurological deficits noted. Patient with no c/o pain or discomfort. AM lab work collected and sent. Patient resting in bed without difficulty. Assessment/Interventions as documented.
[2024-05-17] MEDS: NSS IV (06:10)
--- NOTE | 2024-05-17 07:53 | W.PN.NEPH.PH ---
Today's Communication / Plan
-
Discontinue dialysis cath
Discontinue Hess cath
Can reintroduce enalapril tomorrow as creatinine falls and bp tolerates
Sign off
Assessment/Plan
-
IMP:
MORAIMA
severe hyperkalemia
Severe L acidosis
cardiogenic shock
Critical aortic stenosis s/p TAVR 05/15
Pericardial tamponade s/p pericardiocentesis 05/15
Cardiac Arrest 05/11
Third-degree AV block s/p PPM
AF/AFL
Nonischemic myocardial injury
Hypertension
HLD
Leukocytosis
H/O colitis
Elevated LFTs-shock liver
Plan:
A/w symptomatic , Afib, later brief PEA arrest s/p PPM
MORAIMA-likely prerenal with pericardial effusion and low BP
Creatinine down to 1.4, nonoliguric
Okay to discontinue dialysis catheter
Hemodynamically stay
Weights up, can discontinue further IV fluid
Okay to discontinue Hess catheter
We will sign off
-
-
Date of Service: May 17, 2024
CC / HPI / ROS
-
Chief Complaint:
Acute kidney injury
History of Present Illness:
Creatinine up to 1.4
Hemodynamically stable
Review of Systems:
Nonoliguric via Hess
Pericardial drain in place
Weights up
Labs
-
Labs:
Sodium 134 mmol/L (135-145) L 05/17/24 04:04
Potassium 4.3 mmol/L (3.5-5.1) 05/17/24 04:04
Chloride 100 mmol/L (98-107) 05/17/24 04:04
Carbon Dioxide 27 mmol/L (22-30) 05/17/24 04:04
BUN 64 mg/dl (7-17) H 05/17/24 04:04
Creatinine 1.4 mg/dL (0.6-1.0) H 05/17/24 04:04
eGFR 37.56 05/17/24 04:04
Glucose 245 mg/dl (70-99) H 05/17/24 04:04
Calcium 7.8 mg/dl (8.4-10.2) L 05/17/24 04:04
Albumin 2.7 g/dl (3.5-5.0) L 05/17/24 04:04
Physical Exam
-
Vital Signs:
Vital Signs
Temp Pulse Resp BP Pulse Ox
97.9 F 73 14 143/63 97
05/17/24 04:00 05/17/24 06:00 05/17/24 06:00 05/17/24 06:00 05/17/24 06:00
Cardiovascular:: Regular rate and rhythm
Respiratory:: Bilateral: CTA
Lung Excursion:: Normal
Abdomen:: Nontender and Soft
Bowel Sounds:: Decreased
Extremity Edema:: None: Bilateral:
Hess Catheter: Yes
Other Findings::
Pericardial drain
[2024-05-17 08:34] LABS: Glucose - Point of Care 240 mg/dl (70-99)
[2024-05-17] MEDS: NOVOLOG FLEXPEN-LOW RESISTANCE 2 UNITS SC (08:38)
[2024-05-17] MEDS: LOW STRENGTH ASPIRIN 81 MG PO (08:38)
[2024-05-17] MEDS: PACERONE 200 MG PO ×2 (08:39→19:54)
[2024-05-17] MEDS: NORVASC 5 MG PO (08:39)
--- NOTE | 2024-05-17 08:45 | PTCARENOTE ---
Received patient for 7a-7p shift. Pt AAOx3, without complaints. VSS, 100% Vpaced on case monitor. Hess draining clear yellow with sediment. L groin temporary dialysis catheter dressing intact, kvo infusing without complications. Blood sugar 240.
Medications administered as ordered. Pt maintained on bed rest until dialysis catheter can be removed. Pt demonstrates use of call mauro system. Is up to 1000, encouraged, tolerated. Will continue to monitor.
--- NOTE | 2024-05-17 08:53 | W.PN.CARDCBS ---
Today's Communication / Plan
-
Hold liver toxic meds
Lower amiodarone to twice daily
Follow hemoglobin
Check INR
Agree with removal of dialysis catheter
Reinterrogate atrial lead on Sunday
Hold oral anticoagulation until decision is made on further procedures
Plan to pull drain on Sunday discussed with CT surgery team
Echo Sunday to reassess the pericardial space
Discussed with CT surgery team, patient and nursing at the bedside
Impression / Plan
-
Primary Sheeter Waxer Operator: Dr. Be of [facility]
Assessment:
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
Acute renal failure
Acute liver failure
Status post pericardiocentesis pre-TAVR on
Clinical tamponade prior to TAVR
Elevated threshold on the atrial lead
Anemia from blood loss
Acidosis
Hyperkalemia
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
Presentation with CP, SOB
Suspected atrial flutter with RVR however appears more like afib on tele in ER at present
Leukocytosis
Elevated troponin, suspected nonischemic myocardial injury in setting of rapid AF and severe
Severe , status post TAVR 05/15/2024
History of syncope
HTN
HLD
Hypothyroidism
History of JEAN/oophorectomy
IV contrast allergy
ECHO 04/18/24 at [facility]: EF 54%, severe with peak/mean gradients 98/60 mmHg, NIKKI 0.33 cm�, trace to mild AI, moderate MAC, mild to moderate MR
Echo 05/09/2024: EF 50 to 55%, mild mitral stenosis with a mean gradient of 6 point mercury, severe aortic stenosis with mean gradient of 73 mmHg aortic valve area 0.5 cm�, mild AI, PA systolic 37 mmHg
Plan:
-Slowly but surely recovering from her multiorgan system failure in the setting of bradycardic arrest, emergency temporary pacemaking wire, emergency pacemaker, clinical tamponade Sunday and Sunday of this week, pericardiocentesis pre-TAVR
implant on . Her kidney and renal function appear to be improving and pericardial drainage has stopped overnight.
-She has no chest pain or pressure. No inspiratory pain. Repetitive interrogation of the atrial lead demonstrates modestly elevated atrial thresholds with appropriate sensing and she does not have a need for atrial pacing. The ventricular lead
has stable parameters and she is 100% ventricular paced. Unipolar and bipolar parameters on the atrial lead are relatively similar with unipolar capture to date being better or equal to the bipolar capture threshold. As such I would still favor
that the lead is endocardial given lack of pain and unipolar parameters which are relatively stable and comparable to the bipolar threshold. I am suspicious the pericardial effusion was from the emergency temporary pacemaker wire but cannot be
certain.
-I placed her Tylenol and statin drug on hold given her markedly elevated liver enzymes. I added on an INR today and for tomorrow as that has not been checked since her clinical tamponade and given her elevated liver function I would be concerned
that her INR is elevated.
-She has a history of atrial fibrillation and should be anticoagulated in the long-term as long as her hemoglobin is stable.
-On , May 15, 2024, she underwent successful urgent pericardiocentesis from a subcostal approach with 500 cc of sanguinous pericardial drainage with pericardial drain left in place. An additional 150 cc of fluid drained
overnight. From Sunday to Sunday there is no further drainage with the pericardial drain. I would leave the pericardial drain another 24 hours to tack down the pericardium and removal on Sunday. I discussed with CT surgery team. Would plan
echocardiogram Sunday.
-She also underwent transaortic valve replacement with 29 mm Medtronic Evolut FX + after pericardiocentesis which went uneventfully. On limited echocardiogram the valve appears well-seated with stable mean gradients and no significant PVL. No
significant pericardial effusion noted on repeat echo this morning.
-We will plan to repeat interrogation of the atrial lead on Sunday. I will discuss the case with Dr. Jacobsen in case he needs�wants to revise the lead. Will maintain n.p.o. status Sunday morning although in my clinical estimation it
would be reasonable to observe her endocardial leads given the overall clinical picture and recent liver failure and renal failure.
-No pressor needs at this time. Patient otherwise feels well, is mentating, on room air in no acute distress.
-Plan to continue holding anticoagulation for now until further decision is made in regards to timing of removal of pericardial drain ensuring no need in the near future for pacemaker lead revision.
-Discussed all of the above with patient and nursing at bedside
-I sent communication to her outpatient operations staff specialist security, Dr. El Be and Colin Cerda.
-She received 1 unit of packed cells yesterday I have no objections to further transfusion as her valve is now replaced and her acute renal and liver failure appear to be improving.
Progress Note - Sheeter Waxer Operator
Subjective
Date of Service: May 17, 2024
Feeling better
Objective
Labs:
05/17/24 04:04
Labs
Hgb 7.9 g/dL (12.0-16.0) L 05/16/24 04:26
Hct 24.4 % (37.0-47.0) L 05/16/24 04:26
Plt Count 218 10^3/uL (130-400) 05/16/24 04:26
PT 13.3 Sec (11.4-14.6) 05/11/24 16:43
INR 0.98 05/11/24 16:43
APTT 154.4 Sec (23.4-35.0) H* 05/15/24 02:36
Sodium 134 mmol/L (135-145) L 05/17/24 04:04
Potassium 4.3 mmol/L (3.5-5.1) 05/17/24 04:04
BUN 64 mg/dl (7-17) H 05/17/24 04:04
Creatinine 1.4 mg/dL (0.6-1.0) H 05/17/24 04:04
Glucose 245 mg/dl (70-99) H 05/17/24 04:04
Vital Signs and I&O:
Vital Signs
Temp Pulse Resp BP Pulse Ox
98 F 78 18 134/59 96
05/17/24 07:57 05/17/24 08:39 05/17/24 07:57 05/17/24 08:39 05/17/24 07:57
Vital Signs
Temp Pulse Resp BP Pulse Ox
98 F 78 18 134/59 96
05/17/24 07:57 05/17/24 08:39 05/17/24 07:57 05/17/24 08:39 05/17/24 07:57
Intake & Output
05/15/24 05/16/24 05/17/24 05/18/24
06:59 06:59 06:59 06:59
Intake Total 135.0 / 135.0 1100 / 1200 1820 / 1820
Output Total 585 / 585 1610 / 1610
Balance 135.0 / 135.0 515 / 615 210 / 210
Physical Exam
Physical Exam
Physical Exam
General: no apparent distress, not acutely ill
Neck: supple. no meningeal signs. normal psoterior pharynx
Heart: s1/s2 regular rate and rhythm, no murmur. equal radial pulses.
Lungs: no acute respiratory distress. clear bilaterally
Abdomen: normal bowel sounds. not tender. no CVAT
Neuro: alert and oriented. no focal neurological deficits
Skin: no rash
Psychiatric: well kept. interactive and cooperative
Extremities: no edema. no calf tenderness. negative homans. good distal pulses
Pacer site clean dry and intact
Appropriate atrial sensing and ventricular pacing on telemetry
[2024-05-17 09:15] LABS: Hematocrit 28.1 % (37.0-47.0); Hemoglobin 9.6 g/dL (12.0-16.0); Mean Corp Hgb Conc. 34.2 g/dL (33.0-37.0); Mean Corpuscular Volume 81.9 fL (81.0-99.0); Mean Platelet Volume 11.8 fL (7.4-10.4); Platelet Count 147 10^3/uL (130-400); Red Blood Cell Count 3.43 10^6/uL (4.20-5.40); Red Cell Dist. Width 14.9 % (11.5-14.5); White Blood Cell Count 21.4 10^3/uL (4.8-10.8)
[2024-05-17 09:26] LABS: INR 1.28; PT 16.3 Sec (11.4-14.6)
--- NOTE | 2024-05-17 11:23 | W.PN.UPDATE ---
Update Note
Progress Note Update
Left femoral dialysis catheter removed. Handheld pressure x 5 min. Hemostasis acheived. Dressing applied. No hematoma.
[2024-05-17 12:24] LABS: Glucose - Point of Care 283 mg/dl (70-99)
[2024-05-17] MEDS: NOVOLOG FLEXPEN-LOW RESISTANCE 3 UNITS SC ×2 (12:24→18:07)
--- NOTE | 2024-05-17 12:30 | PTCARENOTE ---
Patient's turner d/c'd at 1130, patient dtv at 1730. L groin Temporary hd catheter removed by MAVERICK Luna. Pt developed hematoma, small amount of bloody drainage on dressing, area demarcated. Jeremy at bedside, pressure held for approximately 5 minutes,
sandbag applied to groin for approximately 25 minutes. VSS, L groin hematoma soft, no s/s of bleeding at this time. + pedal pulses, patient denies pain. Will continue to monitor.
--- NOTE | 2024-05-17 16:46 | PTCARENOTE ---
Patient oob to chair without issues. Pt voided 200ml clear yellow urine via purewick. VSS, V paced on education program specialist. L groin soft, no s/s bleeding, hematoma. Pericardial drain dressing c/d/i. Will continue to monitor.
[2024-05-17 18:06] LABS: Glucose - Point of Care 266 mg/dl (70-99)
[2024-05-17] MEDS: LIPITOR PO (19:44)
--- NOTE | 2024-05-17 20:30 | PTCARENOTE ---
Patient received resting in bed talking on cell phone. Patient A+A+Ox3. No neurological deficits noted. No c/o headache, dizziness or lightheadedness. Room air SpO2 92%. 2L O2 HS - SpO2 98%. Permanent Pacemaker - V-Pacing. Heart rate 70's.
Left anterior chest wall with Aquacell dressing. Pericardial drain intact - Dressing intact - No drainage. Patient with no c/o chest pain, pressure or discomfort. Normoactive bowel sounds. No BM. No c/o nausea. No vomiting. Voiding. External
female urinary device intact - Yellow urine. Generalized edema. Moves all extremities without difficulty. Positive, palpable pulses. Right groin dressing intact. Left groin dressing intact - No hematoma. Patient with no c/o back or flank pain.
Assessment as documented.
[2024-05-17 22:52] LABS: Glucose - Point of Care 229 mg/dl (70-99)
[2024-05-18] VITALS (11 sets, daily range): BP systolic 129–167; BP diastolic 56–79; BMI 27.0
--- NOTE | 2024-05-18 00:30 | PTCARENOTE ---
Patient sleeping without difficulty. No further changes from previous assessment.
--- NOTE | 2024-05-18 05:07 | W.PN.CT ---
Addendum entered and electronically signed by Srinivas Cunningham MD 05/18/24 08:38:
I saw and examined the patient.
The PA's note was reviewed and I agree with the note.
Comment:
Gila Chen - POD#3 s/p R TF TAVR, pigtail drainage of pericardial effusion
Rate-controlled AF. LFTs improving.
D/C pericardial drain
UO good
Pacer interrogation tomorrow
D/C planning for 1-2 days
Original Note:
Today's Communication / Plan
-
-pod #3
-converted to rate controlled afib this AM. LFTs downtrending given amio bolus no gtt, metoprolol and IV mag
-pericardial drain with 0 cc output in 24 hrs
-UOP 700/1000 in 12/24 hrs
-turner/HD line removed yesterday
-pacer to be interrogated on sunday
-discharge planning
Assessment / Plan
-
- Critical symptomatic / pericardial tamponade - s/p Subxiphoid pericardiocentesis w/ placement 6Fr sheath & pigtail catheter w/ drainage of blood pericardial effusion (~500mL) - resolution confirmed on PINO assessment; Pre-TAVR BAV w/ 20mm
balloon; R TF TAVR w/ placement of 29mm Evolut FX on 05/15/24, pod #3
- Post-PINO: No AI/PVL, mean gradient 12mmHg; pericardial effusion resolved
- Pericardial tamponade
- Acute hyperkalemia
- Acute metabolic acidosis with respiratory alkalosis
- Acute severe lactic acidosis
- MORAIMA with oliguria
- Shock liver
- Acute cardiogenic shock
- PEA/bradycardic cardiac arrest 05/11- s/p temp pw, followed by Medtronic pacer 05/12/24
- Recent paroxysmal a-fib
- Moderate MR w/ mild MS (MG 6)
- Non-obstructive CAD
- LVH
- Nonischemic myocardial injury
- Hypertension
- HLD
- Leukocytosis
- H/O colitis
Subjective
Procedure
s/p Right TF TAVR with a 29mm Evolut FX, pericardial drain insertion by Dr. Cunningham on 05/15/24
-
Date of Service: May 18, 2024
Objective Data
-
PT 16.3 Sec (11.4-14.6) H 05/17/24 08:58
INR 1.28 05/17/24 08:58
APTT 154.4 Sec (23.4-35.0) H* 05/15/24 02:36
Vital Signs
Vital Signs
Temp Pulse Resp BP Pulse Ox
97.9 F 70 16 135/59 98
05/18/24 04:00 05/18/24 04:00 05/18/24 04:00 05/18/24 04:00 05/18/24 04:00
CT Intake/Output/Weight
05/17/24 05/17/24 05/18/24
06:59 18:59 06:59
Intake Total 910 / 1820 490 / 730 240 / 730
Output Total 800 / 1610 450 / 450 0 / 450
Balance 110 / 210 40 / 280 240 / 280
SaO2: 98
Physical Exam
-
General: Awake and Oriented
Cardiovascular: Irregular rate & rhythm and Rub
Respiratory: Clear and Decreased Breath Sounds
Sternum: Stable
Incision: Clean, Dry and Intact
Data Reviewed
-
Lab Results: Results Reviewed
Medications: Active Meds Reviewed
Chest X-Ray: Report Reviewed
ECG: Report Reviewed
[2024-05-18 05:26] LABS: Hematocrit 29.4 % (37.0-47.0); Hemoglobin 9.5 g/dL (12.0-16.0); Mean Corp Hgb Conc. 32.3 g/dL (33.0-37.0); Mean Corpuscular Volume 83.5 fL (81.0-99.0); Mean Platelet Volume 11.9 fL (7.4-10.4); Platelet Count 144 10^3/uL (130-400); Red Blood Cell Count 3.52 10^6/uL (4.20-5.40); Red Cell Dist. Width 15.1 % (11.5-14.5)
[2024-05-18 05:32] LABS: INR 1.08; PT 14.3 Sec (11.4-14.6)
[2024-05-18 05:50] LABS: ALT (SGPT) 699 U/L (0-35); AST (SGOT) 365 U/L (14-36); Albumin 3.1 g/dl (3.5-5.0); Alkaline Phosphatase 193 U/L (38-126); Blood Urea Nitrogen 49 mg/dl (7-17); Calcium 8.2 mg/dl (8.4-10.2); Carbon Dioxide 30 mmol/L (22-30); Chloride 100 mmol/L (98-107); Direct Bilirubin 0.1 mg/dl (0.0-0.4); Estimated Creatinine Clearance 41 ml/min; Glucose 179 mg/dl (70-99); Potassium 3.9 mmol/L (3.5-5.1); Sodium 137 mmol/L (135-145); Total Protein 5.5 g/dl (6.3-8.2); eGFR 56.25
--- NOTE | 2024-05-18 06:15 | PTCARENOTE ---
Patient A+A+Ox3. No neurological deficits noted. Patient with no c/o pain or discomfort. Patient went into Atrial Fibrillation - Heart rate 70-100. No c/o chest pain, pressure, palpitations or discomfort. CLOCK AND WATCH HANDS PAINTER made aware. New orders given -
Liver enzymes AST 365 ALT 699 - Cardiology to determine treatment. Patient given bath and linens changed. Left groin intact - No hematoma - Positive circulation, sensation and mobility to left lower extremity. Patient with no c/o back or flank
pain. During patient's CHG bath, protective foam on sacrum/buttock removed - Small purplish wound noted on gluteal cleft region left buttock - Patient with no c/o pain or discomfort - Calazime Skin Protectant Ointment applied.
Assessment/Interventions as documented.
[2024-05-18 08:17] LABS: Glucose - Point of Care 182 mg/dl (70-99)
[2024-05-18] MEDS: NOVOLOG FLEXPEN-LOW RESISTANCE 1 UNITS SC ×2 (08:30→17:07)
--- NOTE | 2024-05-18 08:30 | PTCARENOTE ---
Patient care assumed from nightshift RN. Patient fully alert and oriented. Afebrile. Bilateral pupils even, round and reactive, 3mm. Pericardial drain in place, output being closely monitored. Pulses palpable bilaterally in upper and lower
extremities. Strength +5 in all extremities. Cap refil brisk. bilateral groin surgical sites clean, dry. intact. Pt on 2LNC. Tolerating meals, bowel sounds present. Awaiting on cardiology to evaluate pt before administering meds per PA.
--- NOTE | 2024-05-18 10:15 | W.PN.UPDATE ---
Update Note
Progress Note Update
Pericardial drain removed. Tolerated well. Post removal there a moderate amount of serosanguinous drainage likely from the subcutaneous space. Resolved after about 1 min. Dressing placed.
[2024-05-18 11:32] LABS: Glucose - Point of Care 210 mg/dl (70-99)
--- NOTE | 2024-05-18 12:30 | PTCARENOTE ---
Pericardial drain discontinued by PA, sterile gauze applied. Frequently monitored for bleeding but remains clean, dry and intact. Vital signs remain stable. Pt OOB and I.S encouraged. Tolerating meals, no BM yet. Bilateral groin sites closely
monitored. Strength +5 in all extremities. Pulses palpable. Cap refill brisk. Neuro function fully intact. Closely and frequently monitoring.
[2024-05-18] MEDS: NOVOLOG FLEXPEN-LOW RESISTANCE 2 UNITS SC (13:39)
[2024-05-18] MEDS: PACERONE 200 MG PO ×2 (16:39→20:16)
[2024-05-18] MEDS: LOW STRENGTH ASPIRIN 81 MG PO (16:40)
[2024-05-18] MEDS: NORVASC 5 MG PO (16:40)
[2024-05-18 16:49] LABS: Glucose - Point of Care 174 mg/dl (70-99)
--- NOTE | 2024-05-18 18:12 | PTCARENOTE ---
Patient remains in Afib. BP 167/77. Scheduled morning meds ok to give per PA. Beta azalia added to med regimen. Pt OOB for dinner. New PIV placed in R-AC. Pt now on room air, maintaining adequate o2 sats. Female external catheter in place for
bedtime. Pulses palpable in bilateral upper and lower extremities. Extremities pink, warm and cap refil brisk <2 seconds. Pt remains fully alert and oriented.
[2024-05-18] MEDS: LIPITOR PO (20:08)
[2024-05-18] MEDS: LOPRESSOR 12.5 MG PO (20:16)
--- NOTE | 2024-05-18 20:30 | PTCARENOTE ---
Patient received resting in bed talking on phone. Patient A+A+Ox3. No neurological deficits noted. No c/o pain or discomfort. Room air. SpO2 96%. Permanent Pacemaker. Patient continues in Atrial Fibrillation. Heart rate 70-80's. Patient
with no c/o chest pain, pressure or discomfort. Normoactive bowel sounds. Patient with External Female Urinary Device for HS - Pure Wick - Yellow urine. Patient assisted with repositioning in bed. Skin protectant ointment to sacrum and buttock.
Left anterior chest wall dressing intact. Right groin dressing intact. Left groin dressing intact - No Hematoma. s/p Pericardial Drain - Dressing intact - No bleeding noted. Right and left lower extremities with positive circulation, sensation
and mobility. Assessment as documented.
[2024-05-18 23:57] LABS: Glucose - Point of Care 157 mg/dl (70-99)
[2024-05-19] VITALS (12 sets, daily range): BP systolic 111–158; BP diastolic 50–79; PULSE 73; O2SAT 96–97; BMI 26.6
--- NOTE | 2024-05-19 00:30 | PTCARENOTE ---
Patient sleeping without difficulty. 2L O2 HS. SpO2 98%. Patient NPO after midnight. No further changes from previous assessment.
--- NOTE | 2024-05-19 03:13 | W.PN.CT ---
Today's Communication / Plan
-
-pod #4
-rate controlled afib this AM.
-pacer to be interrogated on sunday, may need lead revision, anticoagulants being held
-echo sunday to evaluate for pericardial effusion
-discharge planning
Assessment / Plan
-
- Critical symptomatic / pericardial tamponade - s/p Subxiphoid pericardiocentesis w/ placement 6Fr sheath & pigtail catheter w/ drainage of blood pericardial effusion (~500mL) - resolution confirmed on PINO assessment; Pre-TAVR BAV w/ 20mm
balloon; R TF TAVR w/ placement of 29mm Evolut FX on 05/15/24, pod #4
- Post-PINO: No AI/PVL, mean gradient 12mmHg; pericardial effusion resolved
- Pericardial tamponade
- Acute hyperkalemia
- Acute metabolic acidosis with respiratory alkalosis
- Acute severe lactic acidosis
- MORAIMA with oliguria
- Shock liver
- Acute cardiogenic shock
- PEA/bradycardic cardiac arrest 05/11- s/p temp pw, followed by Medtronic pacer 05/12/24
- Recent paroxysmal a-fib
- Moderate MR w/ mild MS (MG 6)
- Non-obstructive CAD
- LVH
- Nonischemic myocardial injury
- Hypertension
- HLD
- Leukocytosis
- H/O colitis
Subjective
Procedure
s/p Right TF TAVR with a 29mm Evolut FX, pericardial drain insertion by Dr. Cunningham on 05/15/24
-
Date of Service: May 19, 2024
Objective Data
-
Lab Results
05/18/24 04:48
05/18/24 04:48
PT 14.3 Sec (11.4-14.6) 05/18/24 04:48
INR 1.08 05/18/24 04:48
APTT 154.4 Sec (23.4-35.0) H* 05/15/24 02:36
Vital Signs
Vital Signs
Temp Pulse Resp BP Pulse Ox
98.2 F 69 16 143/63 98
05/19/24 00:00 05/19/24 02:00 05/19/24 00:00 05/19/24 02:00 05/19/24 00:00
CT Intake/Output/Weight
05/18/24 05/18/24 05/19/24
06:59 18:59 06:59
Intake Total 240 / 730 240 / 240
Output Total 700 / 1150 1050 / 1050
Balance -460 / -420 -1050 / -810 240 / -810
SaO2: 98
Physical Exam
-
General: Awake and AOx3
Cardiovascular: Irregular rate & rhythm
Respiratory: Clear
Incision: Dressing Intact
--- NOTE | 2024-05-19 04:45 | PTCARENOTE ---
Patient sleeping without difficulty. No c/o pain or discomfort. Assessment/Interventions as documented.
[2024-05-19] MEDS: NORVASC 5 MG PO (09:08)
[2024-05-19] MEDS: PACERONE 200 MG PO ×2 (09:08→21:10)
[2024-05-19] MEDS: LOPRESSOR 12.5 MG PO ×2 (09:08→21:10)
[2024-05-19] MEDS: LOW STRENGTH ASPIRIN 81 MG PO (09:09)
[2024-05-19] MEDS: NOVOLOG FLEXPEN-LOW RESISTANCE SC ×2 (10:51→17:29)
[2024-05-19] MEDS: DULCOLAX 10 MG RECTAL (13:07)
--- NOTE | 2024-05-19 14:02 | CM ---
Reviewed chart. Met with Mrs. Chen to review discharge plans. She states she is feeling okay but feeling weak and concerned about going directly home. She is asking about Rehab. at [facility]. or [facility]. Reviewed the
role insurance plays with placement. She will need P.T. and O.T evaluations to see if she qualify for some level of inpatient rehab. Prior to admission she resides with her spouse in a one story home with five steps to enter. Prior to admission
she was independent with ambulation and adls. She does not have any DME in the home. She has a prescription plan and [facility]. Medical work-up in progress. The discharge plan is to return home with her spouse and a home visit by the
Transitional Care Nurse verses some level on inpatient rehab. when medically stable.
--- NOTE | 2024-05-19 14:32 | WOUNDNOTE ---
WO RN note: Patient admitted with a flutter, severe . Patient lives with her . Plan is home with transitional care nurse or SNF rehab.
See H&P for complete history.
PMH: colitis, HTN, asthma, valve disorder, diet controlled diabetic.
Wound Location and type/assessment: Patient developed a sacral/coccyx DTI, purple ecchymotic. Patient had complex hospital course including she coded and had a transvenous venous pacer prior to surgery.
Appetite: Po intake 60-100% documented.
Pressure redistribution devices in place: Centrella Max air bed. Patient can turn self in bed.
Plan: Sacral shaped silicone border foam applied. Patient turned to L semi side lying position. Heels off bed with pillow. Air chair cushion given. Instructed patient pressure injury prevention measures. Discussed with RN Sven. Updated CT JOWL TRIMMER
Simona Lopez re: sacral DTI. Simona approved local wound care.
Care plan to be updated and will follow as needed.
Recommend follow up at wound care center upon discharge.
--- NOTE | 2024-05-19 14:52 | WOUNDNOTE ---
WOC RN note: t/c Spoke with SOFI Arana re: patient has a sacral DTI, local wound care, recommend air mattress.
[2024-05-19] MEDS: NOVOLOG FLEXPEN-LOW RESISTANCE 1 UNITS SC (15:18)
[2024-05-19 15:25] LABS: Glucose - Point of Care 157 mg/dl (70-99)
--- NOTE | 2024-05-19 16:23 | PTCARENOTE ---
Resumed care of patient from previous RN; pt AAOx3 and resting comfortably in bed; A-fib on monitor and VSS; lungs diminished; positive bowel sounds; pt voiding yellow urine; trace lower extremity edema noted; all surgical sites C/D/I; pt Q2turn and
resting comfortably in bed.
[2024-05-19] MEDS: FLEET PHOSPHATE ENEMA-ADULT 135 ML RECTAL (17:29)
--- NOTE | 2024-05-19 17:29 | W.PN.CARDCBS ---
Today's Communication / Plan
-
Plan:
-Slow but significant recovery in the setting of bradycardic arrest, emergent temporary paced maker wire, permanent pacemaker the day after, clinical tamponade night before schedule trans catheter aortic valve replacement in the setting of critical
aortic stenosis. Creatinine down to 1.0, LFTs significantly improved.
-Patient clinically feels well and does not offer any complaints other than some discomfort at possible sacral wound.
-She has a history of atrial fibrillation and should be anticoagulated in the long-term as long as her hemoglobin is stable.
-On morning, May 15, 2024, she underwent successful urgent pericardiocentesis from a subcostal approach with 500 cc of sanguinous pericardial drainage with pericardial drain left in place. An additional 150 cc of fluid drained
overnight. From Sunday to Sunday there is no further drainage with the pericardial drain. Drain was discontinued on May 18, 2024.
-Repeat echocardiogram completed today showing no pericardial effusion. Valves were not assessed on the study. Pleural effusion is present.
-She also underwent transaortic valve replacement with 29 mm Medtronic Evolut FX + after pericardiocentesis which went uneventfully. On limited echocardiogram the valve appears well-seated with stable mean gradients and no significant PVL.
-Atrial thresholds were noted to still be elevated while patient was in sinus rhythm on Sunday, May 18, 2024. With her current atrial fibrillation, atrial threshold cannot be assessed. Will reattempt interrogation tomorrow, May
2024
-Plan to continue holding anticoagulation for now until further decision is made in regards to need in the near future for pacemaker lead revision.
-Discussed all of the above with patient and nursing at bedside
Impression / Plan
-
Primary Passport Support Manager: Dr. Be of [facility]
Assessment:
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
Acute renal failure
Acute liver failure
Status post pericardiocentesis pre-TAVR on
Clinical tamponade prior to TAVR
Elevated threshold on the atrial lead
Anemia from blood loss
Acidosis
Hyperkalemia
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
Presentation with CP, SOB
Suspected atrial flutter with RVR however appears more like afib on tele in ER at present
Leukocytosis
Elevated troponin, suspected nonischemic myocardial injury in setting of rapid AF and severe
Severe , status post TAVR 05/15/2024
History of syncope
HTN
HLD
Hypothyroidism
History of JEAN/oophorectomy
IV contrast allergy
ECHO 04/18/24 at [facility]: EF 54%, severe with peak/mean gradients 98/60 mmHg, NIKKI 0.33 cm�, trace to mild AI, moderate MAC, mild to moderate MR
Echo 05/09/2024: EF 50 to 55%, mild mitral stenosis with a mean gradient of 6 point mercury, severe aortic stenosis with mean gradient of 73 mmHg aortic valve area 0.5 cm�, mild AI, PA systolic 37 mmHg
Plan:
-Slow but significant recovery in the setting of bradycardic arrest, emergent temporary paced maker wire, permanent pacemaker the day after, clinical tamponade night before schedule trans catheter aortic valve replacement in the setting of critical
aortic stenosis. Creatinine down to 1.0, LFTs significantly improved.
-Patient clinically feels well and does not offer any complaints other than some discomfort at possible sacral wound.
-She has a history of atrial fibrillation and should be anticoagulated in the long-term as long as her hemoglobin is stable.
-On morning, May 15, 2024, she underwent successful urgent pericardiocentesis from a subcostal approach with 500 cc of sanguinous pericardial drainage with pericardial drain left in place. An additional 150 cc of fluid drained
overnight. From Sunday to Sunday there is no further drainage with the pericardial drain. Drain was discontinued on May 18, 2024.
-Repeat echocardiogram completed today showing no pericardial effusion. Valves were not assessed on the study. Pleural effusion is present.
-She also underwent transaortic valve replacement with 29 mm Medtronic Evolut FX + after pericardiocentesis which went uneventfully. On limited echocardiogram the valve appears well-seated with stable mean gradients and no significant PVL.
-Atrial thresholds were noted to still be elevated while patient was in sinus rhythm on Sunday, May 18, 2024. With her current atrial fibrillation, atrial threshold cannot be assessed. Will reattempt interrogation tomorrow, May
2024
-Plan to continue holding anticoagulation for now until further decision is made in regards to need in the near future for pacemaker lead revision.
-Discussed all of the above with patient and nursing at bedside
Progress Note - Passport Support Manager
Subjective
Date of Service: May 19, 2024
No acute issues overnight. Rate controlled afib.
Objective
Labs:
05/18/24 04:48
05/18/24 04:48
Labs
Hgb 9.5 g/dL (12.0-16.0) L 05/18/24 04:48
Hct 29.4 % (37.0-47.0) L 05/18/24 04:48
Plt Count 144 10^3/uL (130-400) 05/18/24 04:48
PT 14.3 Sec (11.4-14.6) 05/18/24 04:48
INR 1.08 05/18/24 04:48
APTT 154.4 Sec (23.4-35.0) H* 05/15/24 02:36
Sodium 137 mmol/L (135-145) 05/18/24 04:48
Potassium 3.9 mmol/L (3.5-5.1) 05/18/24 04:48
BUN 49 mg/dl (7-17) H 05/18/24 04:48
Creatinine 1.0 mg/dL (0.6-1.0) 05/18/24 04:48
Glucose 179 mg/dl (70-99) H 05/18/24 04:48
Vital Signs and I&O:
Vital Signs
Temp Pulse Resp BP Pulse Ox
98.1 F 91 20 126/71 97
05/19/24 16:00 05/19/24 16:11 05/19/24 16:00 05/19/24 16:11 05/19/24 16:00
Vital Signs
Temp Pulse Resp BP Pulse Ox
98.1 F 91 20 126/71 97
05/19/24 16:00 05/19/24 16:11 05/19/24 16:00 05/19/24 16:11 05/19/24 16:00
Intake & Output
05/17/24 05/18/24 05/19/24 05/20/24
06:59 06:59 06:59 06:59
Intake Total 1820 / 1820 730 / 730 240 / 240
Output Total 1610 / 1610 1150 / 1150 1450 / 1450 0 / 0
Balance 210 / 210 -420 / -420 -1210 / -1210 0 / 0
Physical Exam
Physical Exam
Physical Exam
General: no apparent distress, not acutely ill
Neck: supple. no meningeal signs. normal psoterior pharynx
Heart: s1/s2 regular rate and rhythm, no murmur. equal radial pulses.
Lungs: no acute respiratory distress. clear bilaterally
Abdomen: normal bowel sounds. not tender. no CVAT
Neuro: alert and oriented. no focal neurological deficits
Skin: no rash
Psychiatric: well kept. interactive and cooperative
Extremities: no edema. no calf tenderness. negative homans. good distal pulses
Pacer site clean dry and intact
Appropriate atrial sensing and ventricular pacing on telemetry
[2024-05-19] MEDS: DULCOLAX 10 MG PO (18:18)
--- NOTE | 2024-05-19 20:15 | PTCARENOTE ---
assumed care of pt from previous RN. pt A&Ox4, resting in bed at time of assessment. a fib on tele-monitor. PPM, L upper chest. POX 98% on RA. abd s/n, +BS. pt c/o constipation. see MAR. voiding ziggy colored urine. all surgical sites stable, CDI.
PIV intact. pt able to turn and reposition self. pt turning and repositioning self Q2H. see worklist for complete nursing assessment, interventions, VS, and I&Os.
[2024-05-19 20:59] LABS: Glucose - Point of Care 198 mg/dl (70-99)
[2024-05-19] MEDS: LIPITOR 10 MG PO (21:10)
[2024-05-19] MEDS: MIRALAX 17 GRAMS PO (21:13)
[2024-05-20] VITALS (10 sets, daily range): BP systolic 106–137; BP diastolic 51–82; PULSE 77; BMI 26.4
--- NOTE | 2024-05-20 | PTCARENOTE ---
assessment remains unchanged. VSS. a fib on monitor.
--- NOTE | 2024-05-20 04:12 | W.PN.CT ---
Addendum entered and electronically signed by KHOI Cazares 05/20/24 15:07:
CDI QUERY RESPONSE
- acute blood loss anemia
Original Note:
Today's Communication / Plan
-
-No major issues overnight. Hemodynamically and neurologically intact
-Echo yesterday 05/19 did not show re-accumulation of pericardial effusion, valves were not assessed
-Currently off Oral anticoagulation, on ASA
-Unable to interrogate pacer d/t a-trial fibrillation per Cards, plan is to attempt again today
-Cont. current meds (ASA, Norvasc, Lopressor, Amiodarone, Lipitor)
-Groin is C/D/I without significant hematoma
-Wound care to manage sacral wound
-OOB into chair/ Ambulate/PT/OT f/u
-Monitor hyponatremia, 134
-Replete K, 3.7
-Home vs rehab in 1-2 days
Assessment / Plan
-
- Critical symptomatic / pericardial tamponade - s/p Subxiphoid pericardiocentesis w/ placement 6Fr sheath & pigtail catheter w/ drainage of blood pericardial effusion (~500mL) - resolution confirmed on PINO assessment; Pre-TAVR BAV w/ 20mm
balloon; R TF TAVR w/ placement of 29mm Evolut FX on 05/15/24, pod #5
- Post-PINO: No AI/PVL, mean gradient 12mmHg; pericardial effusion resolved
- Pericardial tamponade
- Acute hyperkalemia
- Acute metabolic acidosis with respiratory alkalosis
- Acute severe lactic acidosis
- MORAIMA with oliguria
- Shock liver
- Acute cardiogenic shock
- PEA/bradycardic cardiac arrest 05/11- s/p temp pw, followed by Medtronic pacer 05/12/24
- Recent paroxysmal a-fib
- Moderate MR w/ mild MS (MG 6)
- Non-obstructive CAD
- LVH
- Nonischemic myocardial injury
- Hypertension
- HLD
- Leukocytosis
- H/O colitis
Discussed patient care with: Cardiology, Nursing, Respiratory Therapy, Pharmacy and Care Team
Subjective
Procedure
s/p Right TF TAVR with a 29mm Evolut FX, pericardial drain insertion by Dr. Cunningham on 05/15/24
-
Date of Service: May 20, 2024
No issues overnight, had BM last night
Objective Data
-
PT 14.3 Sec (11.4-14.6) 05/18/24 04:48
INR 1.08 05/18/24 04:48
APTT 154.4 Sec (23.4-35.0) H* 05/15/24 02:36
Vital Signs
Vital Signs
Temp Pulse Resp BP Pulse Ox
98.2 F 78 16 125/66 96
05/20/24 00:00 05/20/24 04:00 05/20/24 00:00 05/19/24 23:57 05/20/24 00:00
CT Intake/Output/Weight
05/19/24 05/19/24 05/20/24
06:59 18:59 06:59
Intake Total 240 / 240
Output Total 400 / 1450 0 / 225 225 / 225
Balance -160 / -1210 0 / -225 -225 / -225
SaO2: 96 (RA)
Physical Exam
-
General: Awake, Oriented and AOx3
Cardiovascular: Irregular rate & rhythm, No Murmurs, No Rub and No Gallop
Respiratory: Clear
Incision: Clean, Dry, Intact and Dressing Intact
Extremities: Other (+trace edema)
+ sacral wound
Data Reviewed
-
Lab Results: Results Reviewed
Medications: Active Meds Reviewed
Chest X-Ray: Report Reviewed and Image Reviewed
ECG: Report Reviewed and Image Reviewed
--- NOTE | 2024-05-20 04:28 | PTCARENOTE ---
no acute changes. AM labs collected and sent.
[2024-05-20 04:45] LABS: Hematocrit 29.8 % (37.0-47.0); Hemoglobin 9.8 g/dL (12.0-16.0); Mean Corp Hgb Conc. 32.9 g/dL (33.0-37.0); Mean Corpuscular Hgb 27.2 pg (27.0-31.0); Mean Corpuscular Volume 82.8 fL (81.0-99.0); Mean Platelet Volume 10.6 fL (7.4-10.4); Platelet Count 167 10^3/uL (130-400); Red Cell Dist. Width 15.2 % (11.5-14.5)
[2024-05-20 05:11] LABS: Blood Urea Nitrogen 33 mg/dl (7-17); Calcium 8.3 mg/dl (8.4-10.2); Carbon Dioxide 27 mmol/L (22-30); Chloride 100 mmol/L (98-107); Estimated Creatinine Clearance 57 ml/min; Glucose 150 mg/dl (70-99); Magnesium 1.9 mg/dl (1.6-2.3); Potassium 3.7 mmol/L (3.5-5.1); Sodium 134 mmol/L (135-145); eGFR > 60.00
[2024-05-20 07:59] LABS: Glucose - Point of Care 143 mg/dl (70-99)
[2024-05-20] MEDS: PACERONE 200 MG PO ×2 (08:38→19:45)
[2024-05-20] MEDS: LOPRESSOR 12.5 MG PO ×2 (08:38→19:44)
[2024-05-20] MEDS: NOVOLOG FLEXPEN-LOW RESISTANCE SC (08:38)
[2024-05-20] MEDS: NORVASC 5 MG PO (08:38)
[2024-05-20] MEDS: LOW STRENGTH ASPIRIN 81 MG PO (08:39)
[2024-05-20] MEDS: KCL 40 MEQ PO (08:39)
--- NOTE | 2024-05-20 08:45 | PTCARENOTE ---
Patient received from casino shift manager RN; AAOx3, responds spontaneously RN and follows commands; VSS; Afib on monitor; PPM DDDR 60-130; Trace generalized edema; +2 DP and radial pulses; SpO2 97-98% on RA; IS 750 ml; Hyperactive BS and frequent diarrhea;
Surgical sites intact; PIVx1 #22 RAC; PO Potassium Chloride 40 mEq ordered and given; See nursing documentation for further details.
--- NOTE | 2024-05-20 10:03 | W.PN.CARDCBS ---
Addendum entered and electronically signed by Mildred Berkowitz MD 05/20/24 17:56:
I saw and examined the patient.
The Dairy Machine Operator Farmworker's note was reviewed and I agree with the note.
Comment: Patient is doing well this morning. Her constipation is improved. No acute complaints.
Vital signs and lab work reviewed. On exam patient is well-appearing, no acute distress, out of bed into a chair, regular rate, normal S1 and S2, no murmurs, rubs or gallops, lungs are clear to auscultation bilaterally, bilateral groin sites are
soft, nontender, nondistended without evidence of hematoma or bruit, warm extremities without significant edema
Recommendations:
1. No further plans from EP standpoint in regards to device intervention at this time.
2. Repeat echocardiogram yesterday appears stable with no recurrence of pericardial effusion.
3. In setting of elevated [id number] score, will attempt anticoagulation with IV heparin and reassess on echo tomorrow before consideration of Eliquis resumption. If things are stable would consider resuming Eliquis tomorrow with plan to repeat
echo in 1 week as an outpatient.
4. Continue supportive care, encourage incentive spirometry, out of bed to chair and ambulation.
5. Agree with discharge planning.
Mildred Berkowitz MD, [facility], [facility]
Original Note:
Today's Communication / Plan
-
consider for IV heparin trial
repeat hgb and echo in AM. if stable, transition to eliquis 05/21
repeat follow up echo 1 week post DC
follow PPM thresholds, no plans for further device intervention at this time per EP
PMR consult
Impression / Plan
-
Primary Safety Professional: Dr. Be of [facility]
Assessment:
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
Acute renal failure
Acute liver failure
Status post pericardiocentesis pre-TAVR 05/15/24
Clinical tamponade prior to TAVR
Elevated threshold on the atrial lead
Anemia from blood loss
Acidosis
Hyperkalemia
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
Presentation with CP, SOB
Suspected atrial flutter with RVR however appears more like afib on tele in ER at present
Leukocytosis
Elevated troponin, suspected nonischemic myocardial injury in setting of rapid AF and severe
Severe , status post TAVR 05/15/2024
History of syncope
HTN
HLD
Hypothyroidism
History of JEAN/oophorectomy
IV contrast allergy
ECHO 04/18/24 at [facility]: EF 54%, severe with peak/mean gradients 98/60 mmHg, NIKKI 0.33 cm�, trace to mild AI, moderate MAC, mild to moderate MR
Echo 05/09/2024: EF 50 to 55%, mild mitral stenosis with a mean gradient of 6 point mercury, severe aortic stenosis with mean gradient of 73 mmHg aortic valve area 0.5 cm�, mild AI, PA systolic 37 mmHg
ECHO 05/19/24: EF 55-60%, no pericardial effusion, pleural effusion present
Plan:
-Slow but significant recovery in the setting of bradycardic arrest, emergent temporary paced maker wire, permanent pacemaker the day after, clinical tamponade night before schedule trans catheter aortic valve replacement in the setting of critical
aortic stenosis.
-She also underwent transaortic valve replacement with 29 mm Medtronic Evolut FX + after pericardiocentesis 05/15/24. On limited echocardiogram the valve appears well-seated with stable mean gradients and no significant PVL.
-continue post procedural care
-PT/OT
-remains in afib with overall adequate HRs. continue lopressor 12.5mg BID, amiodarone 200mg BID.
-Atrial thresholds were noted to still be elevated while patient was in sinus rhythm on Sunday, May 18, 2024. With her current atrial fibrillation, atrial threshold cannot be assessed. continue monitoring as OP, no plans per EP for lead
revision at this time
-hgb 9.8. she has a history of afib preprocedure and therefore should be anticoagulated when felt to be safe in setting of recent pericardial effusion s/p pericardiocentesis. hgb has been stable over last 48-72 hours. consider for IV heparin tonight
with possible echo in AM and hgb trend with plan to transition to eliquis if stable. would plan for OP echo in 1 week as OP for reassessment.
-d/w CT surgery [employer] and nursing
Progress Note - Safety Professional
Subjective
Date of Service: May 20, 2024
reports some diarrhea after bowel regimen. no significant pain, dizziness.
Objective
Labs:
05/20/24 04:33
05/20/24 04:33
Labs
Hgb 9.8 g/dL (12.0-16.0) L 05/20/24 04:33
Hct 29.8 % (37.0-47.0) L 05/20/24 04:33
Plt Count 167 10^3/uL (130-400) 05/20/24 04:33
PT 14.3 Sec (11.4-14.6) 05/18/24 04:48
INR 1.08 05/18/24 04:48
APTT 154.4 Sec (23.4-35.0) H* 05/15/24 02:36
Sodium 134 mmol/L (135-145) L 05/20/24 04:33
Potassium 3.7 mmol/L (3.5-5.1) 05/20/24 04:33
BUN 33 mg/dl (7-17) H 05/20/24 04:33
Creatinine 0.7 mg/dL (0.6-1.0) 05/20/24 04:33
Glucose 150 mg/dl (70-99) H 05/20/24 04:33
Vital Signs and I&O:
Vital Signs
Temp Pulse Resp BP Pulse Ox
98.1 F 82 16 130/68 97
05/20/24 08:00 05/20/24 09:00 05/20/24 08:00 05/20/24 07:56 05/20/24 08:45
Vital Signs
Temp Pulse Resp BP Pulse Ox
98.1 F 82 16 130/68 97
05/20/24 08:00 05/20/24 09:00 05/20/24 08:00 05/20/24 07:56 05/20/24 08:45
Intake & Output
05/18/24 05/19/24 05/20/24 05/21/24
07:59 07:59 07:59 07:59
Intake Total 730 / 730 240 / 240 90 / 90
Output Total 1150 / 1850 1450 / 1450 225 / 225
Balance -420 / -1120 -1210 / -1210 -225 / -225 90 / 90
Physical Exam
Physical Exam
GEN: No distress, awake, alert, oriented x3. sitting in chair
HEENT: supple, anicteric, mmm, eomi
LUNGS: CTA B/L, no wheezes/rales
CV: Irreg, S1/S2, 1/6 syst LSB
ABD: soft, BS+, NT/ND
EXT: No cyanosis, clubbing, edema
NEURO: Gross non-focal
SKIN: Warm, pink, dry. No rash. L chest site with dressing c/d/i
--- NOTE | 2024-05-20 12:30 | PTCARENOTE ---
Patient ambulating in room with RN; Diarrhea slowing down; Patient complaining of poor appetite
[2024-05-20 13:21] LABS: Glucose - Point of Care 202 mg/dl (70-99)
[2024-05-20] MEDS: NOVOLOG FLEXPEN-LOW RESISTANCE 2 UNITS SC (13:21)
[2024-05-20 13:28] LABS: APTT 25.8 Sec (23.4-35.0)
[2024-05-20] MEDS: HEPARIN 25000 UNITS/250 ML IV (13:30)
--- NOTE | 2024-05-20 14:32 | CM ---
Reviewed chart. Telephone call to [facility] Liaison to make the referral. [facility]. Telephone call to [facility] Ad[facility] to make the referral. Sent
the referral. Met with Mrs. Chen to update her. Reviewed SNF list and [facility] [place] [facility] her home and she is agreeable to having a referral to them. Telephone call to [facility] Admissions to make the referral.
Sent Referral. [facility] admission can offer a bed. Updated Mrs. Reyes. Will need to pre-cert with her iinsurance for SNF/Rehab. Medical work-up in progress. The discharge plan is to go to [facility] SNF/Rehab. if approved by
insurance when medically stable.
--- NOTE | 2024-05-20 14:40 | PN.CDI ---
CDI
- -
CDI:
Physician Documentation Request
Admit Date: 05/08/24 17:27
Dear Doctor Octavio,
Please review the following and provide your response in the progress notes.
Clinical Indicators:
PN, 05/20
#...-Wound care to manage sacral wound
05/19/24 14:32 - Wound Note
#Wound Location and type/assessment:
#...Patient developed a sacral/coccyx DTI, purple ecchymotic.
#...re: sacral DTI.
Physician documentation of the type and location of wounds is required for compliant documentation. Based on the above clinical findings and your assessment, please provide the following in your progress note:
1. Location of the ulcer/wound, including laterality.
2. Type (etiology) of ulcer/wound:
- Deep Tissue Injury
- Venous stasis ulcer
- Pressure (decubitus) ulcer
- Other(please specify)
3. If a pressure ulcer, please also include the stage* of the ulcer:
- Stage 1 - Skin intact, non-blanchable redness
- Stage 2 - Partial thickness loss of dermis, includes intact or open blister
- Stage 3 - Full thickness tissue not including bone, tendon or muscle
- Stage 4 - Full thickness tissue loss, including exposed bone, tendon or muscle
Use of terms such as suspected, likely, concern for, or probable (associated with a specific diagnosis that is being evaluated, monitored, or treated as if it exists) are acceptable and can be coded in the inpatient setting, when documented at the
time of discharge.
Thank you,
Lauren Mcguire RN BSN CCDS
CDI Specialist
please contact via tiger text
Please use your independent medical judgment in providing your response.
*Source: National Pressure Ulcer Advisory Panel (NPUAP)
--- NOTE | 2024-05-20 14:47 | PN.CDI ---
CDI
- -
CDI:
Physician Documentation Request
Admit Date: 05/08/24 17:27
Dear Doctor Octavio,
Please review the following and provide your response in the progress notes.
Clinical Indicators:
Laboratory Tests
05/08/24 05/09/24 05/10/24
15:18 02:14 02:52
Hgb 12.0 10.7 L 11.1 L
05/11/24 05/11/24 05/12/24
06:22 16:44 06:22
Hgb 11.5 L 12.1 10.6 L
05/13/24 05/13/24 05/14/24
03:24 06:20 01:25
Hgb 9.6 L 10.1 L 10.6 L
05/15/24 05/15/24 05/15/24
02:36 10:46 21:34
Hgb 10.0 L 8.3 L 8.4 L
05/16/24 05/17/24 05/18/24
04:26 08:57 04:48
Hgb 7.9 L 9.6 L D 9.5 L
05/20/24
04:33
Hgb 9.8 L
#Transfusion, 05/16/24...1 unit
Based on the above and your clinical assessment, please clarify,the most likely condition/diagnosis evaluated, monitored and/or treated?
Acute blood loss anemia
Acute blood loss anemia with baseline chronic anemia (Specify type)
Other (please specify)
Use of terms such as suspected, likely, concern for, or probable (associated with a specific diagnosis that is being evaluated, monitored, or treated as if it exists) are acceptable and can be coded in the inpatient setting, when documented at the
time of discharge.
Thank you,
Lauren Mcguire RN BSN CCDS
CDI Specialist
please contact via tiger text
Please use your independent medical judgment in providing your response.
--- NOTE | 2024-05-20 16:30 | PTCARENOTE ---
Heparin infusion started at 1335; PTT prior to starting infusion 25.8; Patient encouraged to ambulate with RN - resistant but persuaded to ambulate around room multiple times
--- NOTE | 2024-05-20 17:00 | CON.MD ---
Documented by User: Luly Galindo PA-C 05/20/24 18:18
Consultation - Medical
-
Referring Provider:�
Chief Complaint:�TAVR
History of Present Illness:�Gila is an 84 year old female with a history of severe aortic stenosis with plan for TAVR on 05/15/2024, hypertension, anemia, hypothyroidism, multiple syncopal episodes resulting in the finding of severe aortic stenosis.
She was planned for echo and PAT's 05/09/2024.Plan to see with CTS Dr. Maldonado, for the first time this coming Sunday presenting to the emergency department with relatively sudden onset of palpitations, chest discomfort and left shoulder pain occurring
at noon and persisting. In the ER she is noted to be tachycardic with heart rates in the 150s. She was given adenosine and felt to be in atrial flutter the A-fib .
on 05/11/24 - patient with bradycardia in the 30s on monitoring analyst due to complete heart block, transient. Patient had approximately 3 minutes of CPR with return of ROSC. Drs. Maldonado and Avila discussed temporary pacing wire and patient taken to
vat house laborer for procedure on 05/12/24 for Implantation of dual-chamber permanent pacemaker utilizing the left bundle branch for conduction system pacing
Doing well status post pacemaker. Cardizem stopped and Toprol 25 mg daily stared. on 05/15/24, the patient was noted to be in acute cardiogenic shock with hypoperfusion and recently developed oliguric acute kidney injury. She underwent TAVR with
Dr. Cunningham. Postop she had acute renal failure, liver failure, anemia from blood loss, acidosis and hyperkalemia.
05/20/24 - No major issues overnight. Hemodynamically and neurologically intact
-Echo yesterday 05/19 did not show re-accumulation of pericardial effusion, valves were not assessed
-Currently off Oral anticoagulation, on ASA
-Unable to interrogate pacer d/t a-trial fibrillation per Cards, plan is to attempt again today
Per cardio: remains in afib with overall adequate HRs. continue lopressor 12.5mg BID, amiodarone 200mg BID. continue monitoring as OP, no plans per EP for lead revision at this time. Should be anticoagulated when felt to be safe in setting of recent
pericardial effusion s/p pericardiocentesis. hgb has been stable over last 48-72 hours. consider for IV heparin tonight with possible echo in AM and hgb trend with plan to transition to eliquis if stable. would plan for OP echo in 1 week as OP for
reassessment.
Spoke with patient in room. Looks alert and orientated. Says that she had 'a blow out yesterday' feeling better. Her appetite is improving. She is trying not to eat too much to prevent bloating. She is urinating, denies pain, chest pain, sob.
ECHO 04/18/24 at [facility]: EF 54%, severe with peak/mean gradients 98/60 mmHg, NIKKI 0.33 cm�, trace to mild AI, moderate MAC, mild to moderate MR
Echo 05/09/2024: EF 50 to 55%, mild mitral stenosis with a mean gradient of 6 point mercury, severe aortic stenosis with mean gradient of 73 mmHg aortic valve area 0.5 cm�, mild AI, PA systolic 37 mmHg
ECHO 05/19/24: EF 55-60%, no pericardial effusion, pleural effusion present
�
Past Medical History: Asthma,�severe aortic stenosis, hypertension, hyperlipidemia, hypothyroidism, with HX syncopal episodes due to symptomatic severe
Procedure History:�TAVR, pacemaker implant,
Family History:�Dad- Heart disease, [place], HTN, Mom- in her sleep
�
Social History:�
Functional Level Premorbidly:�Independent with all activities�
Functional Level Currently:�Toileting�max assist, grooming min assist, lower extremity care�max assist, upper extremity care�min assist, toilet transfer�min assist, transfer�min assist, ambulation 20 feet time 1, 40 feet time 1 with no device min
assist (hand held)
�
Tobacco:�Denies�
Alcohol:�Denies�
Drug use:�Denies�
�
Lives with:�Family
24-hour assistance available:�has supportive daughter nearby
Number of floors:�1 story
# steps to enter: 5�
# steps to second floor:none
Potential First floor set up:�yes
Driving:�yes, does not drive
Occupation:�retired
�
�
Allergies:�
Allergy/AdvReac Type Severity Reaction Status Date / Time
adhesive tape Allergy Itching Verified 05/08/24 17:30
erythromycin base Allergy Sneezing Verified 05/08/24 17:30
Iodinated Contrast Media Allergy IV Verified 05/08/24 17:30
CONTRAST-TORSO
RASH WITH
CATH
sulfamethoxazole Allergy Rash Verified 05/08/24 14:27
trimethoprim Allergy Rash Verified 05/08/24 14:27
�
Review of Systems:�
Constitutional: (x) Normal _
Eye: (x) Normal _
Ear/Nose/Throat: (x) Normal _
Respiratory: (x) Normal _
Cardiovascular: (x) abNormal _TAVR, a-fib, pacer
Gastrointestinal: (x) abNormal _constipated- BM with regimen
Genitourinary: (x) Normal _
Musculoskeletal: (x) abNormal _LBP
Integumentary: (x) Normal _
Neurologic: (x) Normal _
Psychiatric: (x) Normal _
Endocrine: (x) Normal _
Hematologic/Lymphatic: (x) Normal _
Allergic/Immunologic: (x) Normal _
�
Medications:�
Active Current Visit Medication List
Category Date Time Status
Acetaminophen [Tylenol] Med 05/11/24 23:37 Active
650 mg PO Q4HPRN PRN
Acetaminophen [Tylenol] Med 05/15/24 10:14 Active
650 mg PO Q4HPRN PRN
Amiodarone [Pacerone] Med 05/17/24 20:00 Active
200 mg PO BID
Amlodipine [Norvasc] Med 05/15/24 16:00 Active
5 mg PO DAILY
Aspirin Chewable [Low Strength Aspirin] Med 05/15/24 08:00 Active
81 mg PO DAILY
Atorvastatin [Lipitor] Med 05/08/24 22:00 Active
10 mg PO HS
Dextrose 50%-Water [Dextrose 50% Syringe] Med 05/13/24 20:00 Active
12.5 grams IV [id number] PRN
Flush (0.9% Sodium Chloride) [Flush (Nss)] Med 05/08/24 20:00 Active
See Dose Instructions IV PER PROTOCOL
Glucagon [GlucaGen] Med 05/13/24 20:00 Active
1 mg IM PRN PRN
HYDROmorphone [Dilaudid] Med 05/15/24 10:14 Active
0.25 mg IV Q3HPRN PRN
Heparin 41848 Units/250 ml Med 05/20/24 12:00 Active
25,000 units in 250 ml IV PER PROTOCOL
Insulin Aspart Corrective Low [Novolog Flexpen-Low Med 05/16/24 07:30 Active
Resistance]
See Protocol SC AC
Mag Hydrox/Al Hydrox/Simeth [Maalox] Med 05/14/24 15:25 Active
30 ml PO QIDPRN PRN
Metoprolol [Lopressor] Med 05/18/24 20:00 Active
12.5 mg PO BID
Ondansetron Injectable [Zofran] Med 05/14/24 19:45 Active
4 mg IV Q6HPRN PRN
Oxycodone [Roxicodone] Med 05/15/24 10:14 Active
2.5 mg PO Q4HPRN PRN
Oxycodone [Roxicodone] Med 05/15/24 10:14 Active
5 mg PO Q4HPRN PRN
�
Vitals:�
Temp Pulse Resp BP Pulse Ox
97.6 F 83 16 134/72 97
05/20/24 15:40 05/20/24 15:40 05/20/24 15:40 05/20/24 15:40 05/20/24 15:40
Height 5 ft 3 in
Actual Weight 67.7 kg
Body Mass Index (BMI) 26.4
�
Physical Exam:�
General Appearance/Observation: Well-developed, well-nourished individual in no apparent distress.�
Pain/Comfort Assessment: low back pain
Mood/Affect: Appropriate, pleasant, talkative and interactive
�
Integumentary/Operative Site:�left chest incision with aquacel, drain sites with dressing
�� Pressure Ulcer Evaluation: absent over heels.�
��
�� Other Type of Wound: absent�
��
Eyes: Conjunctiva/Lids: normal���� Pupils: pupils equal round and reactive to light and Accommodation�
Ears/Nose/Throat: oral mucosa moist,� throat clear.������������ Lips/Teeth/Gums: normal�
Neck: No muscle spasm or tenderness�
Cardiovascular: Heart: regular, murmur�
Pulses: dorsalis pedis 2+ bilaterally�
Respiratory: Respiratory Effort/Chest Expansion: normal������� Auscultation: Clear to auscultation bilaterally�
Gastrointestinal: abdomen not tender, no distension, normal abdominal bowel sounds
Genitourinary: No Hess�
Extremities:�Edema: None�Cyanosis: None�Trophic�changes: None
�
Neurology Exam:
Orientation: Alert, Oriented to self, Time, Place�
Memory: Intact for immediate medical concerns
Comprehension: Intact
Two step command: Intact
Naming: Intact
Cranial Nerves:
�� CNII:�Pupillary light reflex: Intact����Visual Field: NT
�� CN III, IV, : Extraocular muscles: Intact�
�� CN V:�Facial Sensation�at�Forehead: Intact,�Maxilla: Intact,�Mandible: Intact
�� CN VII:�Facial movement: Symmetric
�� CN VIII:�Hearing: Normal
�� CN IX/X:�Speech & swallow: Normal,�Position of Uvula: Midline
�� CN XI:�Shoulder shrug: Symmetric
�� CN XII:�Tongue protrusion: Midline
Sensory:
�� Light touch: Intact in bilateral upper and lower extremities
��
�
Reflexes:
�� Biceps: 2+ bilaterally
�� Brachioradialis: 2+ bilaterally
�� Triceps: 2+ bilaterally
�� Patellar: 2+ bilaterally
�� Achilles: 2+ bilaterally
�� Babinski: Down going bilaterally
�� Clonus:NT
�� Lacho: Negative bilaterally�
Cerebellar: Dysmetria/Ataxia: None�
Musculoskeletal:
Motor: (Manual muscle scale 0-5)�
Muscle SA EF WE EE FF FA HF KE DF EHL PF
Right� 3+ 4 5 4 5 *4 *4 5 5 5
Left 3+ 4 5 4 5 5 5 5 5 5
�*groin pain
Tone: Normal in all extremities�
Range of Motion: Passively within normal limits in all extremities. deferred UE's
�
Lab Results
Labs
WBC 22.0 10^3/uL (4.8-10.8) H 05/20/24 04:33
RBC 3.60 10^6/uL (4.20-5.40) L 05/20/24 04:33
Hgb 9.8 g/dL (12.0-16.0) L 05/20/24 04:33
Hct 29.8 % (37.0-47.0) L 05/20/24 04:33
MCV 82.8 fL (81.0-99.0) 05/20/24 04:33
MCH 27.2 pg (27.0-31.0) 05/20/24 04:33
MCHC 32.9 g/dL (33.0-37.0) L 05/20/24 04:33
RDW 15.2 % (11.5-14.5) H 05/20/24 04:33
Plt Count 167 10^3/uL (130-400) 05/20/24 04:33
MPV 10.6 fL (7.4-10.4) H 05/20/24 04:33
Abs Immat Gran (auto) 1.2 10^3/uL (0-0.05) H 05/15/24 10:46
Absolute Neuts (auto) 19.0 10^3/uL (1.4-6.5) H 05/15/24 10:46
Absolute Lymphs (auto) 1.7 10^3/uL (1.2-3.4) 05/15/24 10:46
Absolute Monos (auto) 1.1 10^3/uL (0.1-0.6) H 05/15/24 10:46
Absolute Eos (auto) 0.0 10^3/uL (0-0.7) 05/15/24 10:46
Absolute Basos (auto) 0.0 10^3/uL (0-0.2) 05/15/24 10:46
CBC Comment 05/15/24 10:46
Immature Gran % 5.2 % (0-0.5) H 05/15/24 10:46
Neutrophils % 82.4 % (42.2-75.2) H 05/15/24 10:46
Lymphocytes % 7.5 % (20.5-51.1) L 05/15/24 10:46
Monocytes % 4.7 % (1.7-9.3) 05/15/24 10:46
Eosinophils % 0.0 % (0-6) 05/15/24 10:46
Basophils % 0.2 % (0-2) 05/15/24 10:46
Nucleated RBC % 0 % 05/15/24 10:46
PT 14.3 Sec (11.4-14.6) 05/18/24 04:48
INR 1.08 05/18/24 04:48
APTT 25.8 Sec (23.4-35.0) 05/20/24 13:10
pH 7.43 (7.35-7.45) 05/16/24 04:26
pCO2 36 mmHg (32-35) H 05/16/24 04:26
pO2 98 mmHg (83-108) 05/16/24 04:26
HCO3 23.9 mmol/L (21-28) 05/16/24 04:26
Base Excess -0.3 mmol/L 05/16/24 04:26
ABG O2 Sat (Measured) 97.9 % (94-98) 05/16/24 04:26
POC ABG O2 Sat (Calc) 99.4 % (94-98) H 05/15/24 10:15
VBG pH 7.21 (7.32-7.43) L 05/15/24 04:37
VBG pCO2 34 mmHg (35-48) L 05/15/24 04:37
VBG pO2 51 mmHg (30-50) H 05/15/24 04:37
VBG HCO3 13.6 mmol/L (22-27) L 05/15/24 04:37
VBG O2 Sat (Daisha) 69.8 % 05/15/24 04:37
VBG Base Excess -13.2 mmol/L (-4 to +4) 05/15/24 04:37
VBG O2 Therapy 05/15/24 04:37
Mixed VBG O2 Saturation 98.6 % 05/15/24 10:46
Sodium 132 mMOL/L (136-145) L 05/15/24 16:46
Potassium 5.0 mMOL/L (3.5-5.1) 05/16/24 04:26
O2 Delivery Level Not Reportable 05/16/24 04:26
Sodium 134 mmol/L (135-145) L 05/20/24 04:33
Potassium 3.7 mmol/L (3.5-5.1) 05/20/24 04:33
Chloride 100 mmol/L (98-107) 05/20/24 04:33
Carbon Dioxide 27 mmol/L (22-30) 05/20/24 04:33
BUN 33 mg/dl (7-17) H 05/20/24 04:33
Creatinine 0.7 mg/dL (0.6-1.0) 05/20/24 04:33
Estimated Creat Clear 57 ml/min 05/20/24 04:33
eGFR > 60.00 05/20/24 04:33
Glucose 150 mg/dl (70-99) H 05/20/24 04:33
Hemoglobin A1c 7.1 % (4.0-5.6) H 05/08/24 19:43
Lactic Acid 1.2 mmol/L (0.7-2.0) 05/15/24 21:34
Calcium 8.3 mg/dl (8.4-10.2) L 05/20/24 04:33
Ionized Calcium 1.15 mMOL/L (1.15-1.33) 05/15/24 21:34
Magnesium 1.9 mg/dl (1.6-2.3) 05/20/24 04:33
Total Bilirubin 1.0 mg/dl (0.2-1.3) 05/18/24 04:48
Direct Bilirubin 0.1 mg/dl (0.0-0.4) 05/18/24 04:48
AST 365 U/L (14-36) H 05/18/24 04:48
ALT 699 U/L (0-35) H* 05/18/24 04:48
Alkaline Phosphatase 193 U/L (38-126) H 05/18/24 04:48
Troponin I 0.316 ng/ml H* 05/11/24 16:44
Total Protein 5.5 g/dl (6.3-8.2) L 05/18/24 04:48
Albumin 3.1 g/dl (3.5-5.0) L 05/18/24 04:48
Triglycerides 101 mg/dl (10-149) 05/09/24 02:14
Total Cholesterol 167 mg/dl (50-199) 05/09/24 02:14
LDL Cholesterol, Calc 59 mg/dl 05/09/24 02:14
VLDL Cholesterol, Calc 20 mg/dl (0-30) 05/09/24 02:14
HDL Cholesterol 88 mg/dl 05/09/24 02:14
Procalcitonin 0.13 ng/ml (0.0-0.25) 05/11/24 16:44
TSH (Reflex) 1.69 uIU/ml (0.47-4.68) 05/08/24 15:18
Urine Color Yellow 05/15/24 21:23
Urine Clarity Very cloudy (Clear) 05/15/24 21:23
Urine pH 5.0 (5.0-9.0) 05/15/24 21:23
Ur Specific Hamill 1.020 (<1.030) 05/15/24 21:23
Urine Ketones Negative (Negative) 05/15/24 21:23
Urine Occult Blood 4+ (Negative) A 05/15/24 21:
Ur Occult Blood Reflex Negative (Negative) 05/09/24 08:49
Urine Nitrite Negative (Negative) 05/15/24 21:
Urine Nitrite (Reflex) Negative (Negative) 05/09/24 08:49
Urine Bilirubin 1+ (Negative) A 05/15/24 21:
Urine Urobilinogen Negative (Neg - 1+) 05/15/24 21:23
Ur Leukocyte Esterase Negative (Negative) 05/15/24 21:23
Leukocyte Esterase Rfl Trace (Negative) A 05/09/24 08:49
Urine RBC 11-15 /HPF (0-2) A 05/15/24 21:23
Urine WBC 0-2 /HPF (0-5) 05/15/24 21:23
Urine WBC (Reflex) 6-10 /HPF (0-5) 05/09/24 08:49
Ur Squamous Epith Cells 0-2 /LPF (Few) 05/15/24 21:23
Amorphous Crystals Seen 05/15/24 21:23
Urine Bacteria Many (Negative) A 05/15/24 21:23
Urine Bacteria (Reflex) Moderate (Negative) A 05/09/24 08:49
Hyaline Casts 6-10 /LPF (0-2) 05/09/24 08:49
Urine Mucus Many 05/09/24 08:49
Urine Creatinine 70.300 mg/dl 05/15/24 21:23
Urine Sodium 33 mmol/L (30-90) 05/15/24 21:23
Urine Glucose Negative (Negative) 05/15/24 21:23
Urine Albumin 1+ (Neg - Trace) A 05/15/24 21:23
Urine Albumin (Reflex) 1+ (Neg - Trace) A 05/09/24 08:49
Fluid WBC 6600 /CUMM 05/15/24 08:54
Fluid Hematocrit 44.8 % 05/15/24 08:54
Fluid Granulocytes 91 % 05/15/24 08:54
Fluid Lymphocytes 2 % 05/15/24 08:54
Fluid Mononuclear Cell 10 % 05/15/24 08:54
Fl Polymorphonucl Cell 90 % 05/15/24 08:54
Fluid Macrophages 5 % 05/15/24 08:54
Fluid Other Cells 2 eosinophil % 05/15/24 08:54
Fluid Diff Path Review 05/15/24 08:54
Fluid Glucose 136 mg/dl 05/15/24 08:54
Fluid Total Protein 5.9 g/dl 05/15/24 08:54
Fluid LDH 1631 U/L 05/15/24 08:54
B-Hydroxybutyrate 0.36 mmol/L (0.02-0.27) H 05/15/24 08:00
Specimen Type Arterial 05/15/24 10:15
POC ABG Comment Post op 05/15/24 10:15
POC pH 7.23 (7.35-7.45) L 05/15/24 10:15
POC Base Excess -9.2 mmol/L 05/15/24 10:15
POC pO2 190 mmHg (83-108) H 05/15/24 10:15
POC pCO2 43 mmHg (35-48) 05/15/24 10:15
POC HCO3 18 mmol/L (21-28) L 05/15/24 10:15
POC Glucose 202 mg/dl (70-99) H 05/20/24 13:19
POC Glucose 330 mg/dl (70-99) H 05/15/24 10:15
POC Sodium 135 mmol/L (136-145) L 05/15/24 10:15
POC Potassium 5.2 mmol/L (3.5-5.1) H 05/15/24 10:15
POC Ionized Calcium 1.15 mmol/L (1.15-1.33) 05/15/24 10:15
POC ACT Low Range 255 Seconds (116-155) H 05/15/24 09:39
POC Hemoglobin Calc 8.6 05/15/24 10:15
POC Hematocrit 25 % PCV (37-47) L 05/15/24 10:15
POC Hemodilution Yes 05/15/24 10:15
Blood Type Cancelled 05/15/24 02:36
Blood Type Confirm A POS 05/15/24 02:36
Antibody Screen Negative (Negative) 05/14/24 16:42
Crossmatch IS Only See Detail 05/14/24 16:42
�
Diagnostic Results:�as per HPI�
�
Assessment: 84 year old female with a history of severe aortic stenosis. S/P Pacer placement and s/p TAVR on 05/15 complicated by acute renal failure, liver failure, anemia from blood loss, acidosis and hyperkalemia.
�
Plan�
PT/OT to increase independence with ADLs, improve balance, coordination, endurance, strength, mobility, community reintegration, decreased burden of care on others and family education.�
TAVR: 05/15/24. Sternal precaution. Pain control. Amiodarone 200 twice daily, metoprolol 12.5 twice daily, aspirin 81 daily, amlodipine 5 mg daily
HTN: continue medications, monitor closely�
HLD: Atorvastatin 10 mg at bedtime
Atrial fibrillation:per cardio:�remains in afib with overall adequate HRs. continue lopressor 12.5mg BID, amiodarone 200mg BID. continue monitoring as OP, no plans per EP for lead revision at this time. should be anticoagulated when felt to be safe
in setting of recent pericardial effusion s/p pericardiocentesis. IV heparin tonight with possible echo in AM. Plan to transition to Eliquis when stable.
Anemia: Post op 9.8 Likely multifactorial.� Continue to monitor.�
Hypokalemia: stable
Hyponatremia: 134
Leukocytosis: 22
Psych: Psychology consult.� Monitor mood, adjust medications as needed.�
Skin: monitor for pressure sores/rashes/lesions.�
Pain: acetaminophen, oxycodone as needed, hydromorphone 0.25 mg IV every 3 hours as needed.�
Bowel: Colace and Senna, PRN bisacodyl.�
Bladder: Time void, PVRs, PRN straight cath.�
GI Prophylaxis: Pantoprazole�
DVT Prophylaxis: heparin. To transition to Eliquis when appropriate per cardio
Pulmonary: Incentive spirometry�
Safety: Continue to reinforce assistance with all transfers.�
Code Status:� Full code
Dispo�(date/plan/equipment needs): Home with family care.� Social history reviewed.�
�
Functional and Medical Goals:�Modified Independent with ADL�s, ambulation, transfers�
�
Discharge Destination:�Patient plans to go to [facility] when medically stable since close to her home and daughter.
�
-�
��

Documented by User: Earl Dominguez MD 05/21/24 22:19
Consultation - Medical
-
Referring Provider:�Dr. Srinivas Cunningham
Chief Complaint:�TAVR
History of Present Illness:�Gila is an 84 year old female with a history of severe aortic stenosis with plan for TAVR on 05/15/2024, hypertension, anemia, hypothyroidism, multiple syncopal episodes resulting in the finding of severe aortic stenosis.
She was planned for echo and PAT's 05/09/2024.Plan to see with CTS Dr. Maldonado, for the first time this coming Sunday presenting to the emergency department with relatively sudden onset of palpitations, chest discomfort and left shoulder pain occurring
at noon and persisting. In the ER she is noted to be tachycardic with heart rates in the 150s. She was given adenosine and felt to be in atrial flutter the A-fib .
on 05/11/24 - patient with bradycardia in the 30s on monitoring analyst due to complete heart block, transient. Patient had approximately 3 minutes of CPR with return of ROSC. Drs. Maldonado and Avila discussed temporary pacing wire and patient taken to
vat house laborer for procedure on 05/12/24 for Implantation of dual-chamber permanent pacemaker utilizing the left bundle branch for conduction system pacing
Doing well status post pacemaker. Cardizem stopped and Toprol 25 mg daily stared. on 05/15/24, the patient was noted to be in acute cardiogenic shock with hypoperfusion and recently developed oliguric acute kidney injury. She underwent TAVR with
Dr. Cunningham. Postop she had acute renal failure, liver failure, anemia from blood loss, acidosis and hyperkalemia.
05/20/24 - No major issues overnight. Hemodynamically and neurologically intact
-Echo yesterday 05/19 did not show re-accumulation of pericardial effusion, valves were not assessed
-Currently off Oral anticoagulation, on ASA
-Unable to interrogate pacer d/t a-trial fibrillation per Cards, plan is to attempt again today
Per cardio: remains in afib with overall adequate HRs. continue lopressor 12.5mg BID, amiodarone 200mg BID. continue monitoring as OP, no plans per EP for lead revision at this time. Should be anticoagulated when felt to be safe in setting of recent
pericardial effusion s/p pericardiocentesis. hgb has been stable over last 48-72 hours. consider for IV heparin tonight with possible echo in AM and hgb trend with plan to transition to eliquis if stable. would plan for OP echo in 1 week as OP for
reassessment.
Spoke with patient in room. Looks alert and orientated. Says that she had 'a blow out yesterday' feeling better. Her appetite is improving. She is trying not to eat too much to prevent bloating. She is urinating, denies pain, chest pain, sob.
ECHO 04/18/24 at [facility]: EF 54%, severe with peak/mean gradients 98/60 mmHg, NIKKI 0.33 cm�, trace to mild AI, moderate MAC, mild to moderate MR
Echo 05/09/2024: EF 50 to 55%, mild mitral stenosis with a mean gradient of 6 point mercury, severe aortic stenosis with mean gradient of 73 mmHg aortic valve area 0.5 cm�, mild AI, PA systolic 37 mmHg
ECHO 05/19/24: EF 55-60%, no pericardial effusion, pleural effusion present
�
Past Medical History: Asthma,�severe aortic stenosis, hypertension, hyperlipidemia, hypothyroidism, with HX syncopal episodes due to symptomatic severe
Procedure History:�TAVR, pacemaker implant,
Family History:�Dad- Heart disease, [place], HTN, Mom- in her sleep
�
Social History:�
Functional Level Premorbidly:�Independent with all activities�
Functional Level Currently:�Toileting�max assist, grooming min assist, lower extremity care�max assist, upper extremity care�min assist, toilet transfer�min assist, transfer�min assist, ambulation 20 feet time 1, 40 feet time 1 with no device min
assist (hand held)
�
Tobacco:�Denies�
Alcohol:�Denies�
Drug use:�Denies�
�
Lives with:�Family
24-hour assistance available:�has supportive daughter nearby
Number of floors:�1 story
# steps to enter: 5�
# steps to second floor:none
Potential First floor set up:�yes
Driving:�yes, does not drive
Occupation:�retired
�
�
Allergies:�
Allergy/AdvReac Type Severity Reaction Status Date / Time
adhesive tape Allergy Itching Verified 05/08/24 17:30
erythromycin base Allergy Sneezing Verified 05/08/24 17:30
Iodinated Contrast Media Allergy IV Verified 05/08/24 17:30
CONTRAST-TORSO
RASH WITH
CATH
sulfamethoxazole Allergy Rash Verified 05/08/24 14:27
trimethoprim Allergy Rash Verified 05/08/24 14:27
�
Review of Systems:�
Constitutional: (x) abNormal _fatigue
Eye: (x) Normal _
Ear/Nose/Throat: (x) Normal _
Respiratory: (x) Normal _
Cardiovascular: (x) abNormal _TAVR, a-fib, pacer
Gastrointestinal: (x) abNormal _constipated- BM with regimen
Genitourinary: (x) Normal _
Musculoskeletal: (x) abNormal _LBP
Integumentary: (x) Normal _
Neurologic: (x) Normal _
Psychiatric: (x) Normal _
Endocrine: (x) Normal _
Hematologic/Lymphatic: (x) Normal _
Allergic/Immunologic: (x) Normal _
�
Medications:�
Active Current Visit Medication List
Category Date Time Status
Acetaminophen [Tylenol] Med 05/11/24 23:37 Active
650 mg PO Q4HPRN PRN
Acetaminophen [Tylenol] Med 05/15/24 10:14 Active
650 mg PO Q4HPRN PRN
Amiodarone [Pacerone] Med 05/17/24 20:00 Active
200 mg PO BID
Amlodipine [Norvasc] Med 05/15/24 16:00 Active
5 mg PO DAILY
Aspirin Chewable [Low Strength Aspirin] Med 05/15/24 08:00 Active
81 mg PO DAILY
Atorvastatin [Lipitor] Med 05/08/24 22:00 Active
10 mg PO HS
Dextrose 50%-Water [Dextrose 50% Syringe] Med 05/13/24 20:00 Active
12.5 grams IV [id number] PRN
Flush (0.9% Sodium Chloride) [Flush (Nss)] Med 05/08/24 20:00 Active
See Dose Instructions IV PER PROTOCOL
Glucagon [GlucaGen] Med 05/13/24 20:00 Active
1 mg IM PRN PRN
HYDROmorphone [Dilaudid] Med 05/15/24 10:14 Active
0.25 mg IV Q3HPRN PRN
Heparin 36480 Units/250 ml Med 05/20/24 12:00 Active
25,000 units in 250 ml IV PER PROTOCOL
Insulin Aspart Corrective Low [Novolog Flexpen-Low Med 05/16/24 07:30 Active
Resistance]
See Protocol SC AC
Mag Hydrox/Al Hydrox/Simeth [Maalox] Med 05/14/24 15:25 Active
30 ml PO QIDPRN PRN
Metoprolol [Lopressor] Med 05/18/24 20:00 Active
12.5 mg PO BID
Ondansetron Injectable [Zofran] Med 05/14/24 19:45 Active
4 mg IV Q6HPRN PRN
Oxycodone [Roxicodone] Med 05/15/24 10:14 Active
2.5 mg PO Q4HPRN PRN
Oxycodone [Roxicodone] Med 05/15/24 10:14 Active
5 mg PO Q4HPRN PRN
�
Vitals:�
Temp Pulse Resp BP Pulse Ox
97.6 F 83 16 134/72 97
05/20/24 15:40 05/20/24 15:40 05/20/24 15:40 05/20/24 15:40 05/20/24 15:40
Height 5 ft 3 in
Actual Weight 67.7 kg
Body Mass Index (BMI) 26.4
�
Physical Exam:�
General Appearance/Observation: Well-developed, well-nourished female in no apparent distress.�
Pain/Comfort Assessment: low back pain
Mood/Affect: Appropriate, pleasant, talkative and interactive
�
Integumentary/Operative Site:�left chest incision with aquacel, drain sites with dressing
�� Pressure Ulcer Evaluation: absent over heels.�
��
Eyes: Conjunctiva/Lids: normal���� Pupils: pupils equal round and reactive to light and Accommodation�
Ears/Nose/Throat: oral mucosa moist,� throat clear.������������ Lips/Teeth/Gums: normal�
Neck: No muscle spasm or tenderness�
Cardiovascular: Heart: regular, murmur�
Pulses: dorsalis pedis 2+ bilaterally�
Respiratory: Respiratory Effort/Chest Expansion: normal������� Auscultation: Clear to auscultation bilaterally�
Gastrointestinal: abdomen not tender, no distension, normal abdominal bowel sounds
Genitourinary: No Hess�
Extremities:�Edema: None�Cyanosis: None�Trophic�changes: None
Neurology Exam:
Orientation: Alert, Oriented to self, Time, Place�
Memory: Intact for immediate medical concerns
Comprehension: Intact
Two step command: Intact
Naming: Intact
Cranial Nerves:
�� CNII:�Pupillary light reflex: Intact����Visual Field: NT
�� CN III, IV, : Extraocular muscles: Intact�
�� CN V:�Facial Sensation�at�Forehead: Intact,�Maxilla: Intact,�Mandible: Intact
�� CN VII:�Facial movement: Symmetric
�� CN VIII:�Hearing: Normal
�� CN IX/X:�Speech & swallow: Normal,�Position of Uvula: Midline
�� CN XI:�Shoulder shrug: Symmetric
�� CN XII:�Tongue protrusion: Midline
Sensory:
�� Light touch: Intact in bilateral upper and lower extremities
��
Reflexes:
�� Biceps: 2+ bilaterally
�� Brachioradialis: 2+ bilaterally
�� Triceps: 2+ bilaterally
�� Patellar: 2+ bilaterally
�� Achilles: 2+ bilaterally
�� Babinski: Down going bilaterally
�� Clonus:NT
�� Lacho: Negative bilaterally�
Cerebellar: Dysmetria/Ataxia: None�
Musculoskeletal: Motor: (Manual muscle scale 0-5)�
Muscle SA EF WE EE FF FA HF KE DF EHL PF
Right� 3+ 4 5 4 5 *4 *4 5 5 5
Left 3+ 4 5 4 5 5 5 5 5 5
�*groin pain
Tone: Normal in all extremities�
Range of Motion: Passively within normal limits in all extremities. deferred UE's
�
Lab Results
Labs
WBC 22.0 10^3/uL (4.8-10.8) H 05/20/24 04:33
RBC 3.60 10^6/uL (4.20-5.40) L 05/20/24 04:33
Hgb 9.8 g/dL (12.0-16.0) L 05/20/24 04:33
Hct 29.8 % (37.0-47.0) L 05/20/24 04:33
MCV 82.8 fL (81.0-99.0) 05/20/24 04:33
MCH 27.2 pg (27.0-31.0) 05/20/24 04:33
MCHC 32.9 g/dL (33.0-37.0) L 05/20/24 04:33
RDW 15.2 % (11.5-14.5) H 05/20/24 04:33
Plt Count 167 10^3/uL (130-400) 05/20/24 04:33
MPV 10.6 fL (7.4-10.4) H 05/20/24 04:33
Abs Immat Gran (auto) 1.2 10^3/uL (0-0.05) H 05/15/24 10:46
Absolute Neuts (auto) 19.0 10^3/uL (1.4-6.5) H 05/15/24 10:46
Absolute Lymphs (auto) 1.7 10^3/uL (1.2-3.4) 05/15/24 10:46
Absolute Monos (auto) 1.1 10^3/uL (0.1-0.6) H 05/15/24 10:46
Absolute Eos (auto) 0.0 10^3/uL (0-0.7) 05/15/24 10:46
Absolute Basos (auto) 0.0 10^3/uL (0-0.2) 05/15/24 10:46
CBC Comment 05/15/24 10:46
Immature Gran % 5.2 % (0-0.5) H 05/15/24 10:46
Neutrophils % 82.4 % (42.2-75.2) H 05/15/24 10:46
Lymphocytes % 7.5 % (20.5-51.1) L 05/15/24 10:46
Monocytes % 4.7 % (1.7-9.3) 05/15/24 10:46
Eosinophils % 0.0 % (0-6) 05/15/24 10:46
Basophils % 0.2 % (0-2) 05/15/24 10:46
Nucleated RBC % 0 % 05/15/24 10:46
PT 14.3 Sec (11.4-14.6) 05/18/24 04:48
INR 1.08 05/18/24 04:48
APTT 25.8 Sec (23.4-35.0) 05/20/24 13:10
pH 7.43 (7.35-7.45) 05/16/24 04:26
pCO2 36 mmHg (32-35) H 05/16/24 04:26
pO2 98 mmHg (83-108) 05/16/24 04:26
HCO3 23.9 mmol/L (21-28) 05/16/24 04:26
Base Excess -0.3 mmol/L 05/16/24 04:26
ABG O2 Sat (Measured) 97.9 % (94-98) 05/16/24 04:26
POC ABG O2 Sat (Calc) 99.4 % (94-98) H 05/15/24 10:15
VBG pH 7.21 (7.32-7.43) L 05/15/24 04:37
VBG pCO2 34 mmHg (35-48) L 05/15/24 04:37
VBG pO2 51 mmHg (30-50) H 05/15/24 04:37
VBG HCO3 13.6 mmol/L (22-27) L 05/15/24 04:37
VBG O2 Sat (Daisha) 69.8 % 05/15/24 04:37
VBG Base Excess -13.2 mmol/L (-4 to +4) 05/15/24 04:37
VBG O2 Therapy 05/15/24 04:37
Mixed VBG O2 Saturation 98.6 % 05/15/24 10:46
Sodium 132 mMOL/L (136-145) L 05/15/24 16:46
Potassium 5.0 mMOL/L (3.5-5.1) 05/16/24 04:26
O2 Delivery Level Not Reportable 05/16/24 04:26
Sodium 134 mmol/L (135-145) L 05/20/24 04:33
Potassium 3.7 mmol/L (3.5-5.1) 05/20/24 04:33
Chloride 100 mmol/L (98-107) 05/20/24 04:33
Carbon Dioxide 27 mmol/L (22-30) 05/20/24 04:33
BUN 33 mg/dl (7-17) H 05/20/24 04:33
Creatinine 0.7 mg/dL (0.6-1.0) 05/20/24 04:33
Estimated Creat Clear 57 ml/min 05/20/24 04:33
eGFR > 60.00 05/20/24 04:33
Glucose 150 mg/dl (70-99) H 05/20/24 04:33
Hemoglobin A1c 7.1 % (4.0-5.6) H 05/08/24 19:43
Lactic Acid 1.2 mmol/L (0.7-2.0) 05/15/24 21:34
Calcium 8.3 mg/dl (8.4-10.2) L 05/20/24 04:33
Ionized Calcium 1.15 mMOL/L (1.15-1.33) 05/15/24 21:34
Magnesium 1.9 mg/dl (1.6-2.3) 05/20/24 04:33
Total Bilirubin 1.0 mg/dl (0.2-1.3) 05/18/24 04:48
Direct Bilirubin 0.1 mg/dl (0.0-0.4) 05/18/24 04:48
AST 365 U/L (14-36) H 05/18/24 04:48
ALT 699 U/L (0-35) H* 05/18/24 04:48
Alkaline Phosphatase 193 U/L (38-126) H 05/18/24 04:48
Troponin I 0.316 ng/ml H* 05/11/24 16:44
Total Protein 5.5 g/dl (6.3-8.2) L 05/18/24 04:48
Albumin 3.1 g/dl (3.5-5.0) L 05/18/24 04:48
Triglycerides 101 mg/dl (10-149) 05/09/24 02:14
Total Cholesterol 167 mg/dl (50-199) 05/09/24 02:14
LDL Cholesterol, Calc 59 mg/dl 05/09/24 02:14
VLDL Cholesterol, Calc 20 mg/dl (0-30) 05/09/24 02:14
HDL Cholesterol 88 mg/dl 05/09/24 02:14
Procalcitonin 0.13 ng/ml (0.0-0.25) 05/11/24 16:44
TSH (Reflex) 1.69 uIU/ml (0.47-4.68) 05/08/24 15:18
Urine Color Yellow 05/15/24 21:23
Urine Clarity Very cloudy (Clear) 05/15/24 21:23
Urine pH 5.0 (5.0-9.0) 05/15/24 21:23
Ur Specific Hamill 1.020 (<1.030) 05/15/24 21:23
Urine Ketones Negative (Negative) 05/15/24 21:23
Urine Occult Blood 4+ (Negative) A 05/15/24 21:23
Ur Occult Blood Reflex Negative (Negative) 05/09/24 08:49
Urine Nitrite Negative (Negative) 05/15/24 21:23
Urine Nitrite (Reflex) Negative (Negative) 05/09/24 08:49
Urine Bilirubin 1+ (Negative) A 05/15/24 21:23
Urine Urobilinogen Negative (Neg - 1+) 05/15/24 21:23
Ur Leukocyte Esterase Negative (Negative) 05/15/24 21:23
Leukocyte Esterase Rfl Trace (Negative) A 05/09/24 08:49
Urine RBC 11-15 /HPF (0-2) A 05/15/24 21:23
Urine WBC 0-2 /HPF (0-5) 05/15/24 21:23
Urine WBC (Reflex) 6-10 /HPF (0-5) 05/09/24 08:49
Ur Squamous Epith Cells 0-2 /LPF (Few) 05/15/24 21:23
Amorphous Crystals Seen 05/15/24 21:23
Urine Bacteria Many (Negative) A 05/15/24 21:23
Urine Bacteria (Reflex) Moderate (Negative) A 05/09/24 08:49
Hyaline Casts 6-10 /LPF (0-2) 05/09/24 08:49
Urine Mucus Many 05/09/24 08:49
Urine Creatinine 70.300 mg/dl 05/15/24 21:23
Urine Sodium 33 mmol/L (30-90) 05/15/24 21:23
Urine Glucose Negative (Negative) 05/15/24 21:23
Urine Albumin 1+ (Neg - Trace) A 05/15/24 21:23
Urine Albumin (Reflex) 1+ (Neg - Trace) A 05/09/24 08:49
Fluid WBC 6600 /CUMM 05/15/24 08:54
Fluid Hematocrit 44.8 % 05/15/24 08:54
Fluid Granulocytes 91 % 05/15/24 08:54
Fluid Lymphocytes 2 % 05/15/24 08:54
Fluid Mononuclear Cell 10 % 05/15/24 08:54
Fl Polymorphonucl Cell 90 % 05/15/24 08:54
Fluid Macrophages 5 % 05/15/24 08:54
Fluid Other Cells 2 eosinophil % 05/15/24 08:54
Fluid Diff Path Review 05/15/24 08:54
Fluid Glucose 136 mg/dl 05/15/24 08:54
Fluid Total Protein 5.9 g/dl 05/15/24 08:54
Fluid LDH 1631 U/L 05/15/24 08:54
B-Hydroxybutyrate 0.36 mmol/L (0.02-0.27) H 05/15/24 08:00
Specimen Type Arterial 05/15/24 10:15
POC ABG Comment Post op 05/15/24 10:15
POC pH 7.23 (7.35-7.45) L 05/15/24 10:15
POC Base Excess -9.2 mmol/L 05/15/24 10:15
POC pO2 190 mmHg (83-108) H 05/15/24 10:15
POC pCO2 43 mmHg (35-48) 05/15/24 10:15
POC HCO3 18 mmol/L (21-28) L 05/15/24 10:15
POC Glucose 202 mg/dl (70-99) H 05/20/24 13:19
POC Glucose 330 mg/dl (70-99) H 05/15/24 10:15
POC Sodium 135 mmol/L (136-145) L 05/15/24 10:15
POC Potassium 5.2 mmol/L (3.5-5.1) H 05/15/24 10:15
POC Ionized Calcium 1.15 mmol/L (1.15-1.33) 05/15/24 10:15
POC ACT Low Range 255 Seconds (116-155) H 05/15/24 09:39
POC Hemoglobin Calc 8.6 05/15/24 10:15
POC Hematocrit 25 % PCV (37-47) L 05/15/24 10:15
POC Hemodilution Yes 05/15/24 10:15
Blood Type Cancelled 05/15/24 02:36
Blood Type Confirm A POS 05/15/24 02:36
Antibody Screen Negative (Negative) 05/14/24 16:42
Crossmatch IS Only See Detail 05/14/24 16:42
�
Diagnostic Results:�as per HPI�
�
Assessment: 84 year old female with a history of severe aortic stenosis. S/P Pacer placement and s/p TAVR on 05/15 complicated by acute renal failure, liver failure, anemia from blood loss, acidosis and hyperkalemia.
�
Plan�
PT/OT to increase independence with ADLs, improve balance, coordination, endurance, strength, mobility, community reintegration, decreased burden of care on others and family education.�
TAVR: 05/15/24. Sternal precaution. Pain control. Amiodarone 200 twice daily, metoprolol 12.5 twice daily, aspirin 81 daily, amlodipine 5 mg daily
HTN: continue medications, monitor closely�
HLD: Atorvastatin 10 mg at bedtime
Atrial fibrillation:per cardio:�remains in afib with overall adequate HRs. continue lopressor 12.5mg BID, amiodarone 200mg BID. continue monitoring as OP, no plans per EP for lead revision at this time. should be anticoagulated when felt to be safe
in setting of recent pericardial effusion s/p pericardiocentesis. IV heparin tonight with possible echo in AM. Plan to transition to Eliquis when stable.
Anemia: Post op 9.8 Likely multifactorial.� Continue to monitor.�
Hypokalemia: stable
Hyponatremia: 134
Leukocytosis: 22
Psych: Psychology consult.� Monitor mood, adjust medications as needed.�
Skin: monitor for pressure sores/rashes/lesions.�
Pain: acetaminophen, oxycodone as needed, hydromorphone 0.25 mg IV every 3 hours as needed.�
Bowel: Colace and Senna, PRN bisacodyl.�
Bladder: Time void, PVRs, PRN straight cath.�
GI Prophylaxis: Pantoprazole�
DVT Prophylaxis: heparin. To transition to Eliquis when appropriate per cardio
Pulmonary: Incentive spirometry�
Safety: Continue to reinforce assistance with all transfers.�
Code Status:� Full code
Dispo�(date/plan/equipment needs): Home with family care.� Social history reviewed.�
Functional and Medical Goals:�Modified Independent with ADL�s, ambulation, transfers�
Discharge Destination:�Patient plans to go to [facility] SN[facility]Rehab when medically stable since close to her home and daughter.
Attending Statement:
I saw and examined the patient today. Reviewed care plan with patient, therapy, nursing, and physician bricklayer's assistant. I agree with the above subjective and physical exam, and plan as documented by JOZEF Galindo with adjustments made as necessary.
[2024-05-20 17:09] LABS: Glucose - Point of Care 167 mg/dl (70-99)
[2024-05-20] MEDS: NOVOLOG FLEXPEN-LOW RESISTANCE 1 UNITS SC (17:13)
[2024-05-20 19:58] LABS: APTT 38.4 Sec (23.4-35.0)
--- NOTE | 2024-05-20 20:00 | PTCARENOTE ---
Patient received from previous RN; AAOx3, VSS, Afib on monitor; Hr 70s PPM DDDR 60-130; Trace generalized edema; +pulses; SpO2 97-98% on RA; IS 750 ml; +BS, Surgical sites intact; PIVx1 #22 RAC infusing heparin. plan of care discussed questions
encouraged
[2024-05-20] MEDS: LIPITOR 10 MG PO (21:10)
[2024-05-20 21:11] LABS: Glucose - Point of Care 170 mg/dl (70-99)
--- NOTE | 2024-05-20 23:39 | PTCARENOTE ---
VSS, pt A-fib per tele monitor, assessment remains unchanged
[2024-05-21] VITALS (14 sets, daily range): BP systolic 109–190; BP diastolic 53–161; PULSE 76–115; O2SAT 98–99; BMI 26.3
[2024-05-21 04:25] LABS: Hematocrit 31.9 % (37.0-47.0); Hemoglobin 10.4 g/dL (12.0-16.0); Mean Corp Hgb Conc. 32.6 g/dL (33.0-37.0); Mean Corpuscular Hgb 27.2 pg (27.0-31.0); Mean Corpuscular Volume 83.3 fL (81.0-99.0); Mean Platelet Volume 11.1 fL (7.4-10.4); Platelet Count 227 10^3/uL (130-400); Red Blood Cell Count 3.83 10^6/uL (4.20-5.40); Red Cell Dist. Width 15.4 % (11.5-14.5); White Blood Cell Count 22.1 10^3/uL (4.8-10.8)
[2024-05-21 04:42] LABS: ALT (SGPT) 259 U/L (0-35); AST (SGOT) 69 U/L (14-36); Albumin 3.4 g/dl (3.5-5.0); Alkaline Phosphatase 166 U/L (38-126); Blood Urea Nitrogen 27 mg/dl (7-17); Calcium 8.4 mg/dl (8.4-10.2); Carbon Dioxide 29 mmol/L (22-30); Chloride 100 mmol/L (98-107); Estimated Creatinine Clearance 51 ml/min; Glucose 129 mg/dl (70-99); Potassium 4.1 mmol/L (3.5-5.1); Sodium 135 mmol/L (135-145); Total Bilirubin 1.2 mg/dl (0.2-1.3); Total Protein 6.1 g/dl (6.3-8.2); eGFR > 60.00
--- NOTE | 2024-05-21 06:36 | W.PN.CT ---
Today's Communication / Plan
-
-pod#6
-no issues overnight, looks and feels better overall
-remains in a-fib 70s- 80s
-wbc is elevated but stable 22K, afebrile, asymptomatic- follow
-drips: Heparin @1150. PTT 57.0
-Echo today
-plans for possibly starting Eliquis for a-fib
-weaned off O2 - pOx 97%
-Hg stable 10.4
-plan for rehab when medically ok
Assessment / Plan
-
- Critical symptomatic / pericardial tamponade - s/p Subxiphoid pericardiocentesis w/ placement 6Fr sheath & pigtail catheter w/ drainage of blood pericardial effusion (~500mL) - resolution confirmed on PINO assessment; Pre-TAVR BAV w/ 20mm
balloon; R TF TAVR w/ placement of 29mm Evolut FX on 05/15/24, pod #6
- Post-PINO: No AI/PVL, mean gradient 12mmHg; pericardial effusion resolved
- Pericardial tamponade
- Acute hyperkalemia
- Acute metabolic acidosis with respiratory alkalosis
- Acute severe lactic acidosis
- MORAIMA with oliguria
- Shock liver
- Acute cardiogenic shock
- PEA/bradycardic cardiac arrest 05/11- s/p temp pw, followed by Medtronic pacer 05/12/24
- Recent paroxysmal a-fib
- Moderate MR w/ mild MS (MG 6)
- Non-obstructive CAD
- LVH
- Nonischemic myocardial injury
- Hypertension
- HLD
- Leukocytosis
- H/O colitis
- Acute postop deep tissues injury, stage II
- Acute blood loss anemia d/t pericardial tamponade
Discussed patient care with: Nursing and Care Team
Subjective
Procedure
s/p Right TF TAVR with a 29mm Evolut FX, pericardial drain insertion by Dr. Cunningham on 05/15/24
-
Date of Service: May 21, 2024
Objective Data
-
Lab Results
05/21/24 06:00
05/21/24 03:53
PT 14.3 Sec (11.4-14.6) 05/18/24 04:48
INR 1.08 05/18/24 04:48
APTT 57.0 Sec (23.4-35.0) H 05/21/24 02:09
Vital Signs
Vital Signs
Temp Pulse Resp BP Pulse Ox
98.3 F 77 16 143/63 97
05/21/24 03:31 05/21/24 03:00 05/21/24 03:31 05/21/24 02:27 05/21/24 03:31
CT Intake/Output/Weight
05/20/24 05/20/24 05/21/24
06:59 18:59 06:59
Intake Total 180 / 180
Output Total 225 / 225 300 / 450 150 / 450
Balance -225 / -225 -120 / -270 -150 / -270
SaO2: 97
Physical Exam
-
General: Awake and AOx3
Cardiovascular: Irregular rate & rhythm (no JVD), No Murmurs and No Rub
Respiratory: Clear and Decreased Breath Sounds
Incision: Clean, Dry, Intact and Other
Extremities: Edema +1 (leg edema. No hand edema )
Abdomen: soft, nontender, +bowel sounds
Data Reviewed
-
Lab Results: Results Reviewed
Medications: Active Meds Reviewed
Chest X-Ray: Report Reviewed and Image Reviewed
ECG: Report Reviewed and Image Reviewed
[2024-05-21] MEDS: NOVOLOG FLEXPEN-LOW RESISTANCE SC (07:44)
[2024-05-21 07:46] LABS: Glucose - Point of Care 149 mg/dl (70-99)
[2024-05-21] MEDS: LOPRESSOR 12.5 MG PO ×2 (08:02→20:29)
[2024-05-21] MEDS: NORVASC 5 MG PO (08:02)
[2024-05-21] MEDS: LOW STRENGTH ASPIRIN 81 MG PO (08:02)
[2024-05-21] MEDS: PACERONE 200 MG PO ×2 (08:02→20:28)
--- NOTE | 2024-05-21 09:31 | W.PN.CARDCBS ---
Addendum entered and electronically signed by Mildred Berkowitz MD 05/21/24 11:33:
I saw and examined the patient.
The Shop Blacksmith's note was reviewed and I agree with the note.
Comment: Patient is doing well this morning. She has been out of bed into a chair and ambulating to the bathroom without any symptoms. She mentioned to nursing about tooth pain.
Vital signs and lab work reviewed. On exam patient is well-appearing, no acute distress, comfortable in bed, regular rate, normal S1 and S2, no murmurs, rubs or gallops, lungs are clear to auscultation bilaterally, bilateral groin sites are soft,
nontender, nondistended without evidence of hematoma or bruit, warm extremities with 1-2+ pitting edema
Repeat limited echocardiogram this morning with no pericardial effusion. Pleural effusion is noted.
Recommendations:
1. Repeat echocardiogram today with no pericardial effusion, hemoglobin stable on heparin. Plan to resume Eliquis today and continue to monitor clinically. If continues to remain stable, would repeat echocardiogram in 1 week.
2. Given concern for tooth pain with ongoing leukocytosis despite being afebrile, reasonable to check blood cultures especially in the setting of recent TAVR.
3. We will resume enalapril at a lower dose in the setting of normalized renal function.
4. With lower extremity edema and pleural effusion persistent on echocardiogram, we will initiate diuretic therapy.
5. Continue supportive care, encourage incentive spirometry, out of bed to chair and ambulation.
6. Agree with discharge planning pending BCx.
Mildred Berkowitz MD, [facility], [facility]
Original Note:
Today's Communication / Plan
-
repeat follow up echo today, likely transition to eliquis if stable
IV lasix 20mg today. po lasix 20mg daily starting 05/22
resume enalapril at lower dose of 5mg daily
blood cultures
post op care
Impression / Plan
-
Primary Technical Data Analyst: Dr. Be of [facility]
Assessment:
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
Acute renal failure
Acute liver failure
Status post pericardiocentesis pre-TAVR 05/15/24
Clinical tamponade prior to TAVR
Elevated threshold on the atrial lead
Anemia from blood loss
Acidosis
Hyperkalemia
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
Presentation with CP, SOB
Suspected atrial flutter with RVR however appears more like afib on tele in ER at present
Leukocytosis
Elevated troponin, suspected nonischemic myocardial injury in setting of rapid AF and severe
Severe , status post TAVR 05/15/2024
History of syncope
HTN
HLD
Hypothyroidism
History of JEAN/oophorectomy
IV contrast allergy
ECHO 04/18/24 at [facility]: EF 54%, severe with peak/mean gradients 98/60 mmHg, NIKKI 0.33 cm�, trace to mild AI, moderate MAC, mild to moderate MR
Echo 05/09/2024: EF 50 to 55%, mild mitral stenosis with a mean gradient of 6 point mercury, severe aortic stenosis with mean gradient of 73 mmHg aortic valve area 0.5 cm�, mild AI, PA systolic 37 mmHg
ECHO 05/19/24: EF 55-60%, no pericardial effusion, pleural effusion present
Plan:
-Slow but steady recovery in the setting of bradycardic arrest, emergent temporary paced maker wire, permanent pacemaker the day after, clinical tamponade night before schedule trans catheter aortic valve replacement in the setting of critical
aortic stenosis.
-She also underwent transaortic valve replacement with 29 mm Medtronic Evolut FX + after pericardiocentesis 05/15/24. On limited echocardiogram the valve appears well-seated with stable mean gradients and no significant PVL.
-remains in afib with overall adequate HRs. continue lopressor 12.5mg BID, amiodarone 200mg BID.
-she was started on IV heparin yesterday. hgb stable this AM. for repeat echo today. if stable, will plan to transition IV heparin to eliquis
-she reports noting a bump in her gums on one of her back teeth and continues with leukocytosis. checking blood cultures
-Atrial thresholds were noted to still be elevated while patient was in sinus rhythm on Sunday, May 18, 2024. With her current atrial fibrillation, atrial threshold cannot be assessed. continue monitoring as OP, no plans per EP for lead
revision at this time
-with edema on exam today. will give IV lasix 20mg today and transition to po lasix 20mg daily starting 05/22/24
-she was on enalapril 20mg BID prior to admission. will resume 5mg daily today and follow BP trends. OP norvasc has been stopped.
-for repeat echo 05/27/24 at 10:30 at cardiac services
-DC planning, PT/OT
-d/w CT surgery RIVET HOLE MACHINE OPERATOR and nursing
Progress Note - Technical Data Analyst
Subjective
Date of Service: May 21, 2024
reports some LE edema. no SOB
Objective
Labs:
05/21/24 06:00
05/21/24 03:53
Labs
Hgb Cancelled 05/21/24 06:00
Hct Cancelled 05/21/24 06:00
Plt Count 227 10^3/uL (130-400) D 05/21/24 03:53
PT 14.3 Sec (11.4-14.6) 05/18/24 04:48
INR 1.08 05/18/24 04:48
APTT 57.0 Sec (23.4-35.0) H 05/21/24 02:09
Sodium 135 mmol/L (135-145) 05/21/24 03:53
Potassium 4.1 mmol/L (3.5-5.1) 05/21/24 03:53
BUN 27 mg/dl (7-17) H 05/21/24 03:53
Creatinine 0.7 mg/dL (0.6-1.0) 05/21/24 03:53
Glucose 129 mg/dl (70-99) H 05/21/24 03:53
Vital Signs and I&O:
Vital Signs
Temp Pulse Resp BP Pulse Ox
98.0 F 88 17 134/55 98
05/21/24 07:58 05/21/24 08:00 05/21/24 07:58 05/21/24 07:55 05/21/24 07:58
Vital Signs
Temp Pulse Resp BP Pulse Ox
98.0 F 88 17 134/55 98
05/21/24 07:58 05/21/24 08:00 05/21/24 07:58 05/21/24 07:55 05/21/24 07:58
Intake & Output
05/19/24 05/20/24 05/21/24 05/22/24
07:59 07:59 07:59 07:59
Intake Total 240 / 240 180 / 330 150 / 150
Output Total 1450 / 1450 225 / 225 450 / 450
Balance -1210 / -1210 -225 / -225 -270 / -120 150 / 150
Physical Exam
Physical Exam
GEN: No distress, awake, alert, oriented x3. =
HEENT: supple, anicteric, mmm, eomi
LUNGS: CTA B/L, no wheezes/rales
CV: Irreg, S1/S2, 1/6 syst LSB
ABD: soft, BS+, NT/ND
EXT: No cyanosis, clubbing. Trace -1+ edema of B/L LE, B/L hands
NEURO: Gross non-focal
SKIN: Warm, pink, dry. No rash. L chest site with dressing c/d/i
[2024-05-21 10:16] LABS: APTT 61.3 Sec (23.4-35.0)
[2024-05-21] MEDS: ELIQUIS 5 MG PO ×2 (10:16→23:07)
[2024-05-21] MEDS: LASIX 20 MG IV (10:16)
--- NOTE | 2024-05-21 11:13 | CM ---
Addendum entered by Nikki Arana 05/21/24 16:02:
Telephone call to [facility] to pre-cert for SNF/Rehab. Approved 5 days for SNF/Rehab. from 05/22/24 to 05/26/24 with next review due on 05/26/24 to [phone]. The auth number is [id number] Family to provide transportation.
Addendum entered by Nikki Arana 05/21/24 14:41:
Received telephone call from [facility]. Liaison who states they can offer a bed for tomorrow. [facility] She has selected to go to [facility] for Rehab.
Original Note:
Reviewed chart and the medical team. Mrs. Chen not ready today for transfer to SNF/Rehab. at [facility]. She maybe ready for transfer to [facility] tomorrow. Will need precert for SNF/Rehab. Met with Mrs. Chen to review discharge
plans. She is agreeable to going to [facility] for SNF/Rehab. She states her daughter will provide transportation to [facility]. Telephone call to [facility] SNF Admission to confirm bed available for tomorrow. [facility]
Admission states they can accept tomorrow if medically stable and approve by insurance. Medical work-up in progress. The discharge plan is to go to [facility] when medically stable and approve by insurance.
[2024-05-21] MEDS: NOVOLOG FLEXPEN-LOW RESISTANCE 1 UNITS SC ×2 (12:25→18:36)
[2024-05-21] MEDS: VASOTEC 5 MG PO (12:26)
--- NOTE | 2024-05-21 12:30 | PTCARENOTE ---
Echo completed at bedside; Urine culture and two sets of blood cultures drawn due to elevated WBC; Heparin infusion transitioned to PO Elliquis - see nursing flowsheets for further details; IV Lasix 20 mg ordered and given; PO Enalapril 5 mg resumed
[2024-05-21 12:31] LABS: Glucose - Point of Care 188 mg/dl (70-99)
--- NOTE | 2024-05-21 16:45 | PTCARENOTE ---
Patient transferred to [id number]; Report given to Jonelle RN; Patient belongings taken with patient to room
--- NOTE | 2024-05-21 17:15 | PTCARENOTE ---
Rec'd report from Shimon in CVICU & rec'd pt AAOx3 w/no c/o CP or SOB at this time. Pt's VS stable w/HR in the 80's & BP 126/58 on transfer. Pt belongings including cell phone transferred to room w/pt. Pt w/call mauro within reach & plan of care
ongoing.
[2024-05-21 18:06] LABS: Glucose - Point of Care 172 mg/dl (70-99)
[2024-05-22 02:06] VITALS: BP 137/58
[2024-05-22 02:07] VITALS: BMI 26.2
[2024-05-22 02:51] LABS: % Basophils 0.3 % (0-2); % Eosinophils 2.7 % (0-6); % Immature Granulocytes 1.7 % (0-0.5); % Lymphocytes 13.9 % (20.5-51.1); % Monocytes 7.9 % (1.7-9.3); % Neutrophils 73.5 % (42.2-75.2); Absolute Basophils 0.1 10^3/uL (0-0.2); Absolute Eosinophils 0.5 10^3/uL (0-0.7); Absolute Immature Granulocytes 0.3 10^3/uL (0-0.05); Absolute Lymphocytes 2.6 10^3/uL (1.2-3.4); Absolute Monocytes 1.5 10^3/uL (0.1-0.6); Absolute Neutrophils 13.6 10^3/uL (1.4-6.5); Hematocrit 27.2 % (37.0-47.0); Mean Corp Hgb Conc. 33.1 g/dL (33.0-37.0); Mean Corpuscular Hgb 27.2 pg (27.0-31.0); Mean Corpuscular Volume 82.2 fL (81.0-99.0); Mean Platelet Volume 10.3 fL (7.4-10.4); Nucleated Red Blood Cells % 0 %; Platelet Count 213 10^3/uL (130-400); Red Blood Cell Count 3.31 10^6/uL (4.20-5.40); Red Cell Dist. Width 15.4 % (11.5-14.5); White Blood Cell Count 18.4 10^3/uL (4.8-10.8)
[2024-05-22 03:14] LABS: Blood Urea Nitrogen 28 mg/dl (7-17); Calcium 8.5 mg/dl (8.4-10.2); Carbon Dioxide 28 mmol/L (22-30); Chloride 101 mmol/L (98-107); Estimated Creatinine Clearance 45 ml/min; Glucose 156 mg/dl (70-99); Potassium 3.9 mmol/L (3.5-5.1); Sodium 134 mmol/L (135-145); eGFR > 60.00
--- NOTE | 2024-05-22 06:21 | PTCARENOTE ---
Pt received at change of shift. Afib on tele with HR 80s-90s. Pt with complaints that L chest wall dressing from PPM and middle chest dressing from pericardial drain were bothering her. JOZEF Covarrubias at bedside assessing pt and removed
both dressings to assess sites. L chest wall PPM site with small amount of drainage present. JOZEF Chauhan ordered wound culture which was obtained and sent to lab. Ambulating with x1 assist and rolling walker to bathroom. Plan of care discussed
and pt hopeful to be discharged to rehab facility today. Can make needs known. Call mauro within reach.
[2024-05-22 07:36] VITALS: BP 131/70
[2024-05-22 07:40] LABS: Glucose - Point of Care 154 mg/dl (70-99)
--- NOTE | 2024-05-22 07:55 | W.PN.CT ---
Today's Communication / Plan
-
-pod#7
-no issues overnight, looks and feels better overall
-remains in a-fib 70s- 80s.
-wbc is elevated but stable 18- 22K, afebrile, asymptomatic- blood/ urine/tissue cx pending
-s/p Echo 05/21: no pericardial effusion. Switched from iv Heparin to Eliquis 05/21
-weaned off O2 - pOx 97%
-plan for rehab when medically ok
Assessment / Plan
-
- Critical symptomatic / pericardial tamponade - s/p Subxiphoid pericardiocentesis w/ placement 6Fr sheath & pigtail catheter w/ drainage of blood pericardial effusion (~500mL) - resolution confirmed on PINO assessment; Pre-TAVR BAV w/ 20mm
balloon; R TF TAVR w/ placement of 29mm Evolut FX on 05/15/24, pod #7
- Post-PINO: No AI/PVL, mean gradient 12mmHg; pericardial effusion resolved
- Pericardial tamponade
- Acute hyperkalemia
- Acute metabolic acidosis with respiratory alkalosis
- Acute severe lactic acidosis
- MORAIMA with oliguria
- Shock liver
- Acute cardiogenic shock
- PEA/bradycardic cardiac arrest 05/11- s/p temp pw, followed by Medtronic pacer 05/12/24
- Recent paroxysmal a-fib
- Moderate MR w/ mild MS (MG 6)
- Non-obstructive CAD
- LVH
- Nonischemic myocardial injury
- Hypertension
- HLD
- Leukocytosis
- H/O colitis
- Acute postop deep tissues injury, stage II
- Acute blood loss anemia d/t pericardial tamponade
Discussed patient care with: Nursing and Care Team
Subjective
Procedure
s/p Right TF TAVR with a 29mm Evolut FX, pericardial drain insertion by Dr. Cunningham on 05/15/24
-
Date of Service: May 22, 2024
Objective Data
-
Lab Results
05/22/24 02:23
05/22/24 02:23
PT 14.3 Sec (11.4-14.6) 05/18/24 04:48
INR 1.08 05/18/24 04:48
APTT 61.3 Sec (23.4-35.0) H 05/21/24 09:32
Vital Signs
Vital Signs
Temp Pulse Resp BP Pulse Ox
97.5 F 67 20 137/58 97
05/22/24 07:35 05/22/24 06:00 05/22/24 07:35 05/22/24 02:06 05/22/24 07:35
CT Intake/Output/Weight
05/21/24 05/22/24 05/22/24
18:59 06:59 18:59
Intake Total 510 / 510
Output Total 900 / 950 50 / 950
Balance -390 / -440 -50 / -440
SaO2: 97
Physical Exam
-
General: Awake and AOx3
Cardiovascular: Irregular rate & rhythm, No Murmurs and No Rub
Respiratory: Clear and Decreased Breath Sounds
Incision: Clean, Dry and Intact
Extremities: No Edema
Pacer incision is intact. Tiny amount of discharge noted on pacer dressing - sent out for culture
Data Reviewed
-
Lab Results: Results Reviewed
Medications: Active Meds Reviewed
Chest X-Ray: Report Reviewed and Image Reviewed
ECG: Report Reviewed and Image Reviewed
[2024-05-22] MEDS: LOPRESSOR 12.5 MG PO (08:11)
[2024-05-22] MEDS: VASOTEC 5 MG PO (08:11)
[2024-05-22] MEDS: LOW STRENGTH ASPIRIN 81 MG PO (08:12)
[2024-05-22] MEDS: PACERONE 200 MG PO (08:12)
[2024-05-22] MEDS: LASIX 20 MG PO (08:12)
[2024-05-22] MEDS: ELIQUIS 5 MG PO (08:12)
[2024-05-22] MEDS: NORVASC 5 MG PO (08:12)
[2024-05-22] MEDS: NOVOLOG FLEXPEN-LOW RESISTANCE 1 UNITS SC ×2 (08:53→12:59)
--- NOTE | 2024-05-22 10:36 | CM ---
CM following for DC planning needs.
Pt. was transferred from CVICU to IVU.
Reviewed DC plan for SNF @ [facility]. Confirmed that bed is avail. today per Jose Angel/admissions.
Pt. medically stable for DC today per JOB MOLDER.
Met w/ patient at bedside. Reviewed DC plan and patient is agreeable. Authorization obtained for SNF transfer, auth# [id number] x5 days. Provided auth to [facility].
Dtr. to transfer patient to [facility].
PLAN: Transfer to [facility] SNF
RN report: [phone]
[2024-05-22 10:48] VITALS: PULSE 71
--- NOTE | 2024-05-22 10:52 | W.PN.CARDCBS ---
Addendum entered and electronically signed by Kaye Ku DO 05/22/24 19:21:
I saw and examined the patient.
The Baby Registry Sales Consultant's note was reviewed and I agree with the note.
Comment: Patient was seen and examined sitting out of bed to chair and anxious for discharge back to [facility]. Offers no new complaints.
GEN: No distress, awake, alert, oriented x3. sitting in chair
HEENT: supple, anicteric, mmm, eomi
LUNGS: CTA B/L, no wheezes/rales
CV: Irreg, S1/S2, / syst LSB
ABD: soft, BS+, NT/ND
EXT: No cyanosis, clubbing. Trace edema of B/L LE
NEURO: Gross non-focal
SKIN: Warm, pink, dry. No rash. L chest site c/d/i, no drainage noted
DC meds:
eliquis 5mg BID
norvasc 5mg daily
lopressor 12.5mg BID
enalapril 5mg daily
lasix 20mg daily
amiodarone 200mg BID for 30 days then decrease to 200mg daily
BMP in 1 week
repeat echo 05/27
wound check 05/30
subsequent follow up with [facility]
for SNF today
Original Note:
Today's Communication / Plan
-
DC meds:
eliquis 5mg BID
norvasc 5mg daily
lopressor 12.5mg BID
enalapril 5mg daily
lasix 20mg daily
amiodarone 200mg BID for 30 days then decrease to 200mg daily
BMP in 1 week
repeat echo 05/27
wound check 05/30
subsequent follow up with [facility]
for SNF today
Impression / Plan
-
Primary Business Project Manager: Dr. Be of [facility]
Assessment:
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
Acute renal failure
Acute liver failure
Status post pericardiocentesis pre-TAVR 05/15/24
Clinical tamponade prior to TAVR
Elevated threshold on the atrial lead
Anemia from blood loss
Acidosis
Hyperkalemia
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
Presentation with CP, SOB
Suspected atrial flutter with RVR however appears more like afib on tele in ER at present
Leukocytosis
Elevated troponin, suspected nonischemic myocardial injury in setting of rapid AF and severe
Severe , status post TAVR 05/15/2024
History of syncope
HTN
HLD
Hypothyroidism
History of JEAN/oophorectomy
IV contrast allergy
ECHO 04/18/24 at [facility]: EF 54%, severe with peak/mean gradients 98/60 mmHg, NIKKI 0.33 cm�, trace to mild AI, moderate MAC, mild to moderate MR
Echo 05/09/2024: EF 50 to 55%, mild mitral stenosis with a mean gradient of 6 point mercury, severe aortic stenosis with mean gradient of 73 mmHg aortic valve area 0.5 cm�, mild AI, PA systolic 37 mmHg
ECHO 05/19/24: EF 55-60%, no pericardial effusion, pleural effusion present
Plan:
-Slow but steady recovery in the setting of bradycardic arrest, emergent temporary paced maker wire, permanent pacemaker the day after, clinical tamponade night before schedule trans catheter aortic valve replacement in the setting of critical
aortic stenosis.
-She also underwent transaortic valve replacement with 29 mm Medtronic Evolut FX + after pericardiocentesis 05/15/24. On repeat limited echocardiograms no recurrent effusion and the valve appears well-seated with stable mean gradients and no
significant PVL.
-remains in afib with overall adequate HRs. continue lopressor 12.5mg BID, amiodarone 200mg BID for 30 days then decrease to 200mg daily.
-transitioned from IV heparin to eliquis 05/21. hgb stable at 9.
-overnight PPM aquacel dressing removed and noted to have some mild drainage at site. also with leukocytosis. fluid swabbed and sent for culture. blood cultures negative thus far
-Atrial thresholds were noted to still be elevated while patient was in sinus rhythm on Sunday, May 18, 2024. With her current atrial fibrillation, atrial threshold cannot be assessed. continue monitoring as OP, no plans per EP for lead
revision at this time
-continue po lasix 20mg daily. BMP in 1 week
-she was on enalapril 20mg BID prior to admission. will resume 5mg daily today and follow BP trends. OP norvasc has been stopped.
-for repeat echo 05/27/24 at 10:30 at cardiac services
-wound check in [facility] office 05/30/24
-planned for SNF today at [facility]
-d/w nursing, CT surgery ROUTE JUMPER/PAs
Progress Note - Business Project Manager
Subjective
Date of Service: May 22, 2024
feeling well. excited for DC
Objective
Labs:
05/22/24 02:23
05/22/24 02:23
Labs
Hgb 9.0 g/dL (12.0-16.0) L 05/22/24 02:23
Hct 27.2 % (37.0-47.0) L 05/22/24 02:23
Plt Count 213 10^3/uL (130-400) 05/22/24 02:23
PT 14.3 Sec (11.4-14.6) 05/18/24 04:48
INR 1.08 05/18/24 04:48
APTT 61.3 Sec (23.4-35.0) H 05/21/24 09:32
Sodium 134 mmol/L (135-145) L 05/22/24 02:23
Potassium 3.9 mmol/L (3.5-5.1) 05/22/24 02:23
BUN 28 mg/dl (7-17) H 05/22/24 02:23
Creatinine 0.8 mg/dL (0.6-1.0) 05/22/24 02:23
Glucose 156 mg/dl (70-99) H 05/22/24 02:23
Vital Signs and I&O:
Vital Signs
Temp Pulse Resp BP Pulse Ox
97.5 F 77 20 131/70 97
05/22/24 07:35 05/22/24 09:00 05/22/24 07:35 05/22/24 07:36 05/22/24 07:59
Vital Signs
Temp Pulse Resp BP Pulse Ox
97.5 F 77 20 131/70 97
05/22/24 07:35 05/22/24 09:00 05/22/24 07:35 05/22/24 07:36 05/22/24 07:59
Intake & Output
05/20/24 05/21/24 05/22/24 05/23/24
07:59 07:59 07:59 07:59
Intake Total 180 / 330 510 / 510
Output Total 225 / 225 450 / 450 950 / 950
Balance -225 / -225 -270 / -120 -440 / -440
Physical Exam
Physical Exam
GEN: No distress, awake, alert, oriented x3. sitting in chair
HEENT: supple, anicteric, mmm, eomi
LUNGS: CTA B/L, no wheezes/rales
CV: Irreg, S1/S2, 1/6 syst LSB
ABD: soft, BS+, NT/ND
EXT: No cyanosis, clubbing. Trace edema of B/L LE
NEURO: Gross non-focal
SKIN: Warm, pink, dry. No rash. L chest site c/d/i, no drainage noted
[2024-05-22 11:07] VITALS: BP 104/68
[2024-05-22] MEDS: LASIX 40 MG PO (11:14)
--- NOTE | 2024-05-22 12:02 | W.DCSUMMARY ---
Discharge Summary
Discharge Data
Date of Admission: 05/08/24
Date of Discharge: 05/22/24
-
Pending Results: No
Hospital Course
Primary care physician: Mayte Rivas
Outpatient graduate teaching assistant: Hung Be
Inpatient consultants: [facility], Nephrology- Dr. Minaya,
Procedures:
1. 05/11/24 urgent placement of transvenous pacemaker
2. 05/12/24 Implantation of medtronic dual chamber permanent pacemaker
3. 05/15/24 subxiphoid pericardiocentesis/pericardial drain placement + right transfemoral TAVR wtih #29 Medtronic evolut fx
Primary Diagnosis:
1. critical aortic stenosis
2. bradycardic arrest 05/11 s/p temporary wire & subsequent dual chamber PPM 05/12/24; elevated atrial lead threshold on post implant assessment 05/18
3. pericardial tamponade s/p pericardiocentesis & drain placement 05/15
Secondary Diagnoses:
1. acute hyperkalemia, resolved
2. acute metabolic acidosis with respiratory alkalosis, resolved
3. severe lactic acidosis, resolved
4. MORAIMA with oluguria, resolved
5. shock liver, resolved
6. acute cardiogenic shock, resolved
7. recent paroxysmal atrial fibrillation
8. moderate mitral regurgitation with mild mitral stenosis
9. nonobstructive coronary artery disease
10. left ventricular hypertrophy
11. nonischemic myocardial injury
12. hypertension
13. hyperlipidemia
14. hx colitis
15. acute postop deep tissue injury, stage II
16. acute blood loss anemia
17. hx syncope
18. hypothyroidism
19. documened IV contrast allergy- rash
HPI: Patient is an 84-year-old female who presented to the emergency department on May 08 in atrial fibrillation with known history of severe and planned TAVR on 05/15/2024. She was admitted and started on heparin and IV Cardizem for rate
control. She continued to have complaints of chest pain and discomfort and was worked up for her planned TAVR.
Hospital course: On May 11 she had a bradycardic arrest with brief loss of pulse, code was called and she achieved ROSC. She was emergently taken to the Management Consultant for temporary transvenous pacing wire by Dr. Gramajo. The next morning she was
taken to the EP lab for dual-chamber permanent pacemaker implantation without apparent complication. She was resumed on IV heparin and Cardizem for her continued A-fib. On 05/14 she had significant decompensation overnight with cardiogenic shock,
metabolic acidosis and lactic acidosis, she was given fluid resuscitation and started on dobutamine. On 05/15 she was taken to the Management Consultant for her planned transfemoral TAVR where she was noted to have a large pericardial effusion on transesophageal
echo. This was drained via subxiphoid approach and a pericardial drain was placed. She proceeded to have her transfemoral TAVR placed without significant complication. She was extubated postprocedure without incident. On postop day 1 she remains
hemodynamically stable with pericardial drain in place. On postop day 2 temporary HD cath was removed, and Hess was discontinued after improvement in creatinine and increased urine output. Pericardial drain maintained per cardiology. On postop
day 3 her drain was removed low-dose beta-azalia was added later that day for rate control as she remains in A-fib. On postop day 4 permanent pacemaker was interrogated and she was noted to have a high threshold on her atrial lead. Per EP, no
plans for lead revision. Wound care involved for sacral pressure wound, stage II. On postop day 5 physical and occupational therapy were consulted, as well as physiatry for eventual rehab placement. IV heparin was resumed for her persistent
A-fib. On postop day 6 she was started back on low-dose enalapril. Follow-up echo without significant effusion. Heparin drip was discontinued and she was started on Eliquis. She was started on gentle diuresis as well. On postop day 7 patient
remains hemodynamically stable tolerating changes in her medications, and was discharged to intermediate facility.
Home medication changes: enalapril decreased from 20mg BID to 5mg daily due to relative hypotension. New Rx amiodarone 200mg BID x 1 month--then once daily for atrial fibrillation. new rx Eliquis 5mg BID for atrial fibrillation. new rx metoprolol
12.5mg BID for HTN/Afib rate control. New Rx lasix 20mg for heart failure/volume overload.
Discharge Plan
-
Patient Disposition: Longterm/SNF
Discharge Diagnosis/Procedures: Pacemaker implant (05/12/24), TAVR (05/15/24), pericardial drain (05/15/24)
Condition: Fair
Diet: Low Cholesterol, Low Sodium and Diabetic, Carb Controlled
Activity: No strenuous activity
Driving Restrictions: Not until seen by your Dr
Bathing Restrictions: OK to Shower
Blood Work: check BMP in 1 week
Others Tests: follow up echocardiogram at cardiac services 05/27/24 @10:30AM
Specialty Instructions: Weigh Daily- Call MD for wt gain/loss 3 lbs overnight/5 lbs in 1 week
Activity Restrictions/Additional Instructions:
Wound Care Instructions
Sacral ulcer-clean with saline or soap and water, silicone border foam, change every 3 days and as needed for loosened dressing.
Pressure redistributing chair cushion (i.e. Air chair cushion).
Air mattress.
Elevate heels off bed with pillow/s.
Follow up with wound customer care associate or at wound care center call for an appointment.
please note that your hgbA1c is elevated at 7.1-- discuss further with your primary care doctor
Amiodarone should be continued twice daily for 1 month, then continue once daily until otherwise directed by cardiology.
Stand Alone Forms: DC Inst - Implanted Device
[facility] [Other[facility] [Provider Group] - 05/30/24 1:20 pm (wound check appointment)
Amy Conklin MD [Family Provider] - in four to six weeks (Please make an appointment in four to six weeks. )
Hung Be MD [Non-Admitting Privileges] - 06/17/24 2:00 pm
Prescriptions:
New
amiodarone 200 mg Tablet
200 mg PO BID Qty: 60 1RF
Rx Instructions:
take twice daily for 30 days (until 06/21)--then once daily
Eliquis 5 mg Tablet
5 mg PO BID Qty: 60 0RF
furosemide 20 mg Tablet
20 mg PO DAILY Qty: 0 0RF
metoprolol tartrate 25 mg Tablet
12.5 mg PO BID Qty: 0 0RF
enalapril maleate 5 mg Tablet
5 mg PO DAILY Qty: 0 0RF
Continued
atorvastatin 10 mg Tablet
10 mg PO HS
amlodipine 5 mg Tablet
5 mg PO NOON
albuterol sulfate 90 mcg/actuation Hfa Aerosol Inhaler
2 puff INHALATION R Q6HPRN PRN (Reason: sob)
coenzyme Q10 100 mg Tablet
100 mg PO NOON
PreserVision AREDS 2 Plus MV 200 mcg-15 mcg- 5 mg-1 mg Capsule
1 cap PO BID
Discontinued
enalapril maleate 20 mg Tablet
20 mg PO BID
budesonide 3 mg Capsule,Delayed,Extend.Release
3 mg PO UD
Patient Comments:
patient tapering but does not want this to take this right now due to constiaption
Discharge Orders:
Discharge Patient (As Directed); Ordered 05/22/24
Ordered By: Shantelle Bryant
Care Plan Goals
Care Plan Goals:
Problem: Readiness for enhanced knowledge related to diagnosis and treatment plan
Goal: Understand your diagnosis and treatment plan needs, including medications if applicable.
Instructions: Know your diagnosis, underlying causes and treatment plan options, including medications if applicable. Consult with your health care team to learn about your diagnosis and treatment plan, including medications if applicable.
Discharge Date and Time
Discharge Date/Time: 05/22/24 13:55
Print Language: GHANAIAN
[2024-05-22 12:13] LABS: Glucose - Point of Care 170 mg/dl (70-99)
--- NOTE | 2024-05-22 13:49 | PTCARENOTE ---
Discharge instructions reviewed w/ pt and daughter. Verbalizes understanding. IV and tele removed. Belongings collected and sent w/ pt. [facility] Documents faxed and sent w/ pt family. Escorted via WC and
staff assist.
== END 2024-05-22 13:55 | DRG 266 ==
LOC: IVU 17:27
PROVIDERS: Clinical Nurse Specialist Acute Care; Hospitalist; Internal Medicine; Internal Medicine Cardiovascular Disease; Internal Medicine Interventional Cardiology; Nurse Practitioner; Nurse Practitioner Adult Health; Physician Assistant; Physician Assistant Medical; Registered Nurse; Student in an Organized Health Care Education/Training Program; ADMITTING PHYSICIAN Internal Medicine; ATTENDING PHYSICIAN Thoracic Surgery (Cardiothoracic Vascular Surgery); CONSULT PHYSICIAN Internal Medicine; CONSULT PHYSICIAN Internal Medicine Cardiovascular Disease; CONSULT PHYSICIAN Physical Medicine & Rehabilitation; EMERGENCY PHYSICIAN Emergency Medicine; FAMILY PHYSICIAN Family Medicine; OTHER PHYSICIAN Thoracic Surgery (Cardiothoracic Vascular Surgery)
PROC: 5A12012 Performance of Cardiac Output, Single, Manual (ICD-10-PCS; 2024-05-11)
PROC: 5A1223Z Performance of Cardiac Pacing, Continuous (ICD-10-PCS; 2024-05-11)
PROC: 0JH606Z Insertion of Pacemaker, Dual Chamber into Chest Subcutaneous Tissue and Fascia, Open Approach (ICD-10-PCS; 2024-05-12)
PROC: 02H63JZ Insertion of Pacemaker Lead into Right Atrium, Percutaneous Approach (ICD-10-PCS; 2024-05-12)
PROC: 02HL3JZ Insertion of Pacemaker Lead into Left Ventricle, Percutaneous Approach (ICD-10-PCS; 2024-05-12)
PROC: 02RF3JZ Replacement of Aortic Valve with Synthetic Substitute, Percutaneous Approach (ICD-10-PCS; 2024-05-15)
PROC: B24BZZ4 Ultrasonography of Heart with Aorta, Transesophageal (ICD-10-PCS; 2024-05-15)
PROC: 4A02XFZ Measurement of Cardiac Rhythm, External Approach (ICD-10-PCS; 2024-05-15)
PROC: 0W9D30Z Drainage of Pericardial Cavity with Drainage Device, Percutaneous Approach (ICD-10-PCS; 2024-05-15)
PROC: 30233N1 Transfusion of Nonautologous Red Blood Cells into Peripheral Vein, Percutaneous Approach (ICD-10-PCS; 2024-05-16)
DX: I35.0 Nonrheumatic aortic (valve) stenosis (principal); I46.2 Cardiac arrest due to underlying cardiac condition; I50.33 Acute on chronic diastolic (congestive) heart failure; R57.0 Cardiogenic shock; K72.00 Acute and subacute hepatic failure without coma; N17.0 Acute kidney failure with tubular necrosis; I48.19 Other persistent atrial fibrillation; I48.92 Unspecified atrial flutter; I5A Non-ischemic myocardial injury (non-traumatic); I47.19 Other supraventricular tachycardia; I31.4 Cardiac tamponade; I44.2 Atrioventricular block, complete; I31.39 Other pericardial effusion (noninflammatory); E87.4 Mixed disorder of acid-base balance; E87.1 Hypo-osmolality and hyponatremia; D62 Acute posthemorrhagic anemia; I11.0 Hypertensive heart disease with heart failure; E78.00 Pure hypercholesterolemia, unspecified; E11.9 Type 2 diabetes mellitus without complications; J45.909 Unspecified asthma, uncomplicated; E03.9 Hypothyroidism, unspecified; D72.829 Elevated white blood cell count, unspecified; I25.10 Atherosclerotic heart disease of native coronary artery without angina pectoris; R91.1 Solitary pulmonary nodule; H35.30 Unspecified macular degeneration; L89.152 Pressure ulcer of sacral region, stage 2; M85.80 Other specified disorders of bone density and structure, unspecified site; E87.5 Hyperkalemia; Z88.1 Allergy status to other antibiotic agents; Z91.041 Radiographic dye allergy status; Z88.2 Allergy status to sulfonamides; Z91.048 Other nonmedicinal substance allergy status; Z88.3 Allergy status to other anti-infective agents; Z87.19 Personal history of other diseases of the digestive system; Z82.49 Family history of ischemic heart disease and other diseases of the circulatory system; Z90.721 Acquired absence of ovaries, unilateral
CPT/HCPCS: 88305; 93308; 33016; 33208; 33210; 33361; 36600; 71045; 71046; 80048; 80053; 80061; 81003; 81015; 82010; 82248; 82330; 82570; 82805; 82810; 82945; 82962; 83036; 83605; 83615; 83735; 84132; 84145; 84157; 84300; 84302; 84443; 84484; 85014; 85018; 85025; 85027; 85049; 85347; 85610; 85730; 86850; 86900; 86901; 86920; 87015; 87040; 87070; 87086; 87102; 87116; 87205; 87206; 88112; 89051; 93005; 93306; 93312; 93320; 93321; 93325; 96374; 96375; 97110; 97116; 97163; 97167; 97530; 99291; C1760; C1769; C1785; C1887; C1892; C1894; C1898; J0153; P9016; Q9967

== ENCOUNTER → 2024-05-27 10:48 | Outpatient (REF) | payer OTHER, SELFPAY | LOC: RCS 10:48 | PROVIDERS: ATTENDING PHYSICIAN Internal Medicine Interventional Cardiology; FAMILY PHYSICIAN Family Medicine | DX: I31.39 Other pericardial effusion (noninflammatory) (principal) | CPT/HCPCS: 93308 ==

== ENCOUNTER 2025-04-03 06:52 | Day surgery (SDC) | payer OTHER, SELFPAY ==
[2025-04-03 08:09] LABS: Glucose - Point of Care 149 mg/dl (70-99)
[2025-04-03 08:15] VITALS: BMI 25.5
--- NOTE | 2025-04-03 09:22 | ITS.CL.CARDI ---
Addendum entered and electronically signed by Dylon Patel MD 04/03/25 11:19:
Date of Procedure: 04/03/2025
Procedure: Cardioversion
Indication: Symptomatic atrial fibrillation
Performing Physician: Dylon Patel MD
Technique: The patient was brought to the holding area. Signed informed consent was obtained. A time out was called and performed. The patient was anesthetized by the anesthesia service. Anticoagulation status was reviewed and appropriate. R2 pads
were placed anteriorly and posteriorly. A (360) J synchronized biphasic shock restored normal sinus rhythm without significant bradycardia. There were no complications.
Conclusion: Uncomplicated cardioversion from atrial fibrillation to sinus rhythm.
Recommendation: Routine post cardioversion care. Continue medical terminologist anticoagulation.
Original Note:
Rotary Derrick Operator - Cardioversion
Cardioversion
Procedure Report:
Date of Procedure:
Procedure: Cardioversion
Indication: Symptomatic atrial fibrillation
Performing Physician: Dylon Patel MD
Technique: The patient was brought to the holding area. Signed informed consent was obtained. A time out was called and performed. The patient was anesthetized by the anesthesia service. Anticoagulation status was reviewed and appropriate. R2 pads
were placed anteriorly and posteriorly. A (360) J synchronized biphasic shock restored normal sinus rhythm without significant bradycardia. There were no complications.
Conclusion: Uncomplicated cardioversion from atrial fibrillation to sinus rhythm.
Recommendation: Routine post cardioversion care. Continue senior care anticoagulation.
== END 2025-04-03 09:46 | disposition home or self-care (01) ==
LOC: CATH 06:52
PROVIDERS: ATTENDING PHYSICIAN Internal Medicine Cardiovascular Disease; FAMILY PHYSICIAN Physician Assistant Medical
DX: I48.91 Unspecified atrial fibrillation (principal); Z79.01 Long term (current) use of anticoagulants; I10 Essential (primary) hypertension; I48.92 Unspecified atrial flutter; Z79.899 Other long term (current) drug therapy
CPT/HCPCS: 82962; 92960; 93005